=== PATIENT | female | born 1985 | race Caucasian/White ===

== ENCOUNTER → 2016-12-17 | Outpatient (CLI) | payer MEDICAID ==
[~2016-12-17] MED LIST: BUPIVACAINE HCL 0.25% 10 ML VIAL As Ordered ONE; BUPIVACAINE HCL 0.25% 30 ML VIAL As Ordered ONE; TRIAMCINOLONE ACETONIDE SUSP 40 MG/ML VIAL (J3301) As Ordered ONE; diazePAM 5 MG TAB As Ordered ONE; oxyCODONE 5MG TAB As Ordered ONE
--- NOTE | 2016-12-26 23:45 | ECWPNPC ---
PATIENT NAME: EDOUARD ALCALA : 1985 GENDER: FEMALE VISIT DATE: 12/17/2016 DISCHARGE DATE: 12/17/16 1635 VISIT LOCKED DATE TIME: PHYSICIAN: PATY HANCOCK RESOURCE: PATY HANCOCK REASON FOR APPOINTMENT 1. TPI HISTORY OF PRESENT ILLNESS HISTORY OF PRESENT ILLNESS: PAIN THE PATIENT DESCRIBES THE PAIN... FALL RISK SCREENING: SCREENING :NO FALLS IN THE PAST YEAR CURRENT MEDICATIONS TAKING TIZANIDINE HCL 4 MG TABLET 1 TABLET NEEDED ORALLY BEFORE BEDTIME, NOTES: 12/16/16@2100 TAKING HYDROCODONE-ACETAMINOPHEN 5-325 MG TABLET 1 TABLET NEEDED ORALLY FOR PAIN EVERY 10 HRS MDD2, NOTES: 12/16/16@2129 TAKING VITAMIN D 2000 UNIT CAPSULE 1 CAPSULE ORALLY ONCE A DAY, NOTES: 12/16/16@2129 TAKING PROTONIX 40 MG TABLET DELAYED RELEASE 1 TABLET ORALLY ONCE A DAY, NOTES: 12/17/16@0600 TAKING FLUOXETINE 20 MG CAPSULE 3 CAPSULE IN THE MORNING ORALLY ONCE A DAY, NOTES: 12/17/16@0600 TAKING TYLENOL 325 MG TABLET 2 TABLETS NEEDED ORALLY EVERY 6 HRS, NOTES: 3-4 DAYS AGO NOT-TAKING FLUCONAZOLE 150 MG TABLET 1 TABLET ORALLY DISCONTINUED VICODIN 5-300 MG TABLET 1 TABLET NEEDED ORALLY EVERY 6 HRS MDD 2 TABL, NOTES: 12/16/16@2129 DISCONTINUED FISH OIL 1000 MG CAPSULE 1 CAPSULE ORALLY ONCE A DAY MEDICATION LIST REVIEWED AND RECONCILED WITH THE PATIENT PAST MEDICAL HISTORY MILD DISPLASIA ULCER BUSITIS CARPAL TUNNEL ARTHRITIS PTSD MIGRAINES SCOLIOSIS FATTY LIVER DISEASE ALLERGIES CONTRAST: HIVES: SIDE EFFECTS YLENOL WITH CODEINE: RASH: SIDE EFFECTS PENICILLIN (FOR ALLERGIES USE ONLY) SOCIAL HISTORY GENERAL: TOBACCO USE ARE YOU A:NONSMOKER LEARNING BARRIERS / SPECIAL NEEDS ORIENTED TO PLAN OF CARE: PATIENT, PAIN MANAGEMENT PATIENT, ORIENTED TO PLAN OF CARE: PATIENT, PAIN MANAGEMENT PATIENT. NEW PATIENT PAIN DIARY TODAY'S VISITNOTES FROM 0-10, WHAT LEVEL IS YOUR PAIN TODAY?0 PAIN CLINIC PFS, CLERGY, PUBLIC HEALTH REFERRALS PFS REFERRAL NEEDED?NO CLERGY REFERRAL NEEDED?NO PUBLIC HEALTH REFERRAL NEEDED?NO WAS THE PROVIDER NOTIFIED OF ANY PERTINENT INFO?NO PFS REFERRAL NEEDED?NO CLERGY REFERRAL NEEDED?NO PUBLIC HEALTH REFERRAL NEEDED?NO WAS THE PROVIDER NOTIFIED OF ANY PERTINENT INFO?NO REVIEW OF SYSTEMS CONSTITUTIONAL: ANY CHANGE IN YOUR MEDICAL CONDITION? NO . CHILLS NO . FEVER NO . INFECTION: DO YOU HAVE NEW INFECTIONS? NO . DO YOU HAVE HISTORY OF MRSA? NO . MUSCULOSKELETAL: ANY NEW PATTERNS OF PAIN OR NUMBNESS? YES,FINGERS AND TOES . GASTROENTEROLOGY: ANY NEW CHANGE IN BOWEL CONTROL? NO . GENITOURINARY: ANY NEW CHANGE IN BLADDER CONTROL? NO . IS THERE A CHANCE YOU COULD BE ? NO . HEMATOLOGY/LYMPH: DO YOU TAKE ANY BLOOD THINNERS? (FOR EXAMPLE- COUMADIN, PLAVIX, AGGRENOX, PLATEL, PRADAXA, OR XARELTO) NO . WHEN WAS YOUR LAST DOSE? DATE: TIME: . NEUROLOGY: HAVE YOU FALLEN IN THE PAST 6 MONTHS? NO . ANY NEW EXTREMITY NUMBNESS OR WEAKNESS? NO . CARDIOLOGY: DO YOU HAVE A PACEMAKER OR DEFIBRILLATOR? NO . RESPIRATORY: HAVE YOU BEEN SICK IN THE PAST WEEK? NO . FEVER NO . FLU LIKE SYMPTOMS? NO . COUGH NO . INTEGUMENTARY: DO YOU HAVE ANY RASHES OR OPEN SORES? NO . ALLERGIC/IMMUNO: ARE YOU ALLERGIC TO SHELLFISH OR IV DYE? NO . ANY NEW ALLERGIES? NO . PSYCHIATRIC: DO YOU HAVE THOUGHTS OF HURTING YOURSELF OR SOMEONE ELSE? NO . ARE YOU ABUSED, NEGLECTED, OR IN AN UNSAFE ENVIRONMENT? NO . ENDOCRINOLOGY: ARE YOU DIABETIC? NO . OTHER: DO YOU NEED ANY PRESCRIPTIONS? NO . IF YES, PLEASE LIST: ____ . ANY NEW PROBLEMS WITH YOUR MEDICATIONS? NO . WHEN DID YOU LAST EAT? ____12/16/16 . WHEN DID YOU LAST DRINK? ____12/17/16@0600 . WHAT DID YOU LAST DRINK? ____COFFEE . NAME OF PERSON DRIVING YOU HOME? ____ALEKSANDRA SUAREZ . DO YOU HAVE ANY OTHER QUESTIONS OR CONCERNS NO . REVIEWED BY: PROVIDER: . VITAL SIGNS WT 240 LBS, HT 66 IN, BMI 38.73 INDEX, BP 128/88 MM HG, HR 89 /MIN, RR 16 /MIN, TEMP 97.8 F, OXYGEN SAT % 98, NA INITIALS TL 1339, REVIEWED BY: VD. ASSESSMENTS MYALGIA - M79.1 (PRIMARY) PROCEDURES PN TRIGGER POINT INJECTION WITH STEROIDS PRE PROCEDURE DIAGNOSIS 1. MYALGIA 2. PAIN AT BILATERAL LOW BACK AREA POST PROCEDURE DIAGNOSIS 1. MYALGIA 2. PAIN AT BILATERAL LOW BACK AREA PROCEDURE TRIGGER POINT INJECTION AT BILATERAL LOW BACK AREA SURGEON DR. PATY HANCOCK PAGE TECHNICIAN NONE ANESTHESIA LOCAL PRE PROCEDURE NOTE THE PATIENT HAS A HISTORY OF CHRONIC PAIN AT THE RIGHT AND LEFT LOW BACK AREA. I EVALUATE THE PATIENT AND REVIEWED THE CHART. THERE IS EVIDENCE OF BANDS OF TISSUE WITH RESTRICTION OF MOVEMENT AND PRESENCE OF TRIGGER POINT AT THE AFFECTED AREA. I WENT OVER THE RISKS, ALTERNATIVES, AND BENEFITS ASSOCIATED WITH THIS PROCEDURE. THE PATIENT WOULD LIKE TO PROCEED AND GIVE CONSENT TO PERFORMED THE PROCEDURE. THE PATIENT DENIES UNEXPLAINABLE WEIGHT LOSS, FEVER, CHILLS, OR NEW CHANGES IN URINARY OR BOWEL CONTROL DESCRIPTION OF PROCEDURE THE PATIENT WAS BROUGHT TO THE PROCEDURE ROOM AND PLACED IN THE SITTING POSITION. THE AREA WAS CLEANED WITH ALCOHOL. THE PROCEDURE WAS DONE USING ASEPTIC STERILE TECHNIQUE. I CHECKED LATERALITY AND THE LEVEL WHERE THE PROCEDURE WAS GOING TO BE PERFORMED WITH THE PATIENT AND THE SUPPORTING STAFF AT THE MOMENT OF THE TIME OUT IN THE PROCEDURE ROOM. USING A 25-GAUGE NEEDLE, TRIGGER POINTS WERE INJECTED AT THE RIGHT AND LEFT LOW BACK AREA WITH A TOTAL OF 40 ML OF BUPIVACAINE 0.25% AND KENALOG 40 MG. THERE WAS NO EVIDENCE OF BLOOD, PARESTHESIA OR CEREBROSPINAL FLUID DURING THE PROCEDURE. THE PATIENT WAS SENT TO THE RECOVERY ROOM. THE PATIENT WAS MOVING THE EXTREMITIES AND DOING WELL. THERE WAS NO COMPLICATION DURING THE PROCEDURE POST PROCEDURE NOTE THE PATIENT WILL BE SEEN IN A FOLLOW UP IN THE NEXT FEW WEEKS. INSTRUCTIONS WERE GIVEN, QUESTIONS WERE ANSWERED, AND THE PATIENT EXPRESSED UNDERSTANDING AND AGREES WITH THE PLAN. INSTRUCTIONS WERE GIVEN, QUESTIONS WERE ANSWERED, PATIENT REPORTS UNDERSTANDING AND AGREES WITH THE PLAN. I, ADEEL AGUILA, DOCUMENTED THE ABOVE INFORMATION ACTING A SCRIBE FOR DR. HANCOCK. I HAVE REVIEWED THE ABOVE DOCUMENT, WRITTEN BY ADEEL AGUILA SCRIBGregory AND I VERIFY THAT IT IS ACCURATE. PROCEDURE CODES 69426 INJ TRIGGER POINT / [facility] [place] FOLLOW UP 3 WEEKS ELECTRONICALLY SIGNED BY PATY HANCOCK MD ON 12/26/2016 AT 07:48 PM EST DISCLAIMER : THIS IS A VISIT SUMMARY EXTRACTED FROM THE [employer] CHART. IT IS NOT A COPY OF THE [employer] PROGRESS NOTE. [facility]
== END ==
LOC: M PAIN 14:30
PROVIDERS: ATTEND Anesthesiology
DX: G89.29 Other chronic pain (principal); M79.1 Myalgia; M54.5 Low back pain; M19.90 Unspecified osteoarthritis, unspecified site; G43.909 Migraine, unspecified, not intractable, without status migrainosus; M41.9 Scoliosis, unspecified; K76.0 Fatty (change of) liver, not elsewhere classified; F43.10 Post-traumatic stress disorder, unspecified; Z91.041 Radiographic dye allergy status; Z88.5 Allergy status to narcotic agent; Z88.0 Allergy status to penicillin; Z79.891 Long term (current) use of opiate analgesic; Z79.899 Other long term (current) drug therapy
CPT/HCPCS: 20552; J3301

== ENCOUNTER → 2017-01-18 | Outpatient (CLI) | payer MEDICAID ==
--- NOTE | 2017-01-19 00:29 | ECWPNPC ---
PATIENT NAME: EDOUARD ALCALA : 1985 GENDER: FEMALE VISIT DATE: 01/18/2017 DISCHARGE DATE: 01/18/17 1629 VISIT LOCKED DATE TIME: PHYSICIAN: KATH BEDOLLA RESOURCE: KATH BEDOLLA REASON FOR APPOINTMENT 1. 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 PAIN THE PATIENT DESCRIBES THE PAIN... FALL RISK SCREENING: SCREENING :NO FALLS IN THE PAST YEAR CURRENT MEDICATIONS TAKING TIZANIDINE HCL 4 MG TABLET 1 TABLET NEEDED ORALLY BEFORE BEDTIME TAKING PROTONIX 40 MG TABLET DELAYED RELEASE 1 TABLET ORALLY ONCE A DAY, NOTES: 12/17/16@0600 TAKING FLUOXETINE 20 MG CAPSULE 3 CAPSULE IN THE MORNING ORALLY ONCE A DAY, NOTES: 12/17/16@0600 TAKING TYLENOL 325 MG TABLET 2 TABLETS NEEDED ORALLY EVERY 6 HRS, NOTES: 3-4 DAYS AGO TAKING HYDROCODONE-ACETAMINOPHEN 5-325 MG TABLET 1 TABLET NEEDED ORALLY FOR PAIN EVERY 10 HRS MDD2 NOT-TAKING VITAMIN D 2000 UNIT CAPSULE 1 CAPSULE ORALLY ONCE A DAY, NOTES: 12/16/16@2130 NOT-TAKING FLUCONAZOLE 150 MG TABLET 1 TABLET ORALLY MEDICATION LIST REVIEWED AND RECONCILED WITH THE PATIENT PAST MEDICAL HISTORY MILD DISPLASIA ULCER BUSITIS CARPAL TUNNEL ARTHRITIS PTSD MIGRAINES SCOLIOSIS FATTY LIVER DISEASE ALLERGIES CONTRAST: HIVES: SIDE EFFECTS YLENOL WITH CODEINE: RASH: SIDE EFFECTS PENICILLIN (FOR ALLERGIES USE ONLY) SOCIAL HISTORY GENERAL: TOBACCO USE ARE YOU A:NONSMOKER LEARNING BARRIERS / SPECIAL NEEDS ORIENTED TO PLAN OF CARE: PATIENT, PAIN MANAGEMENT PATIENT, ORIENTED TO PLAN OF CARE: PATIENT, PAIN MANAGEMENT PATIENT. NEW PATIENT PAIN DIARY TODAY'S VISITNOTES FROM 0-10, WHAT LEVEL IS YOUR PAIN TODAY?0 PAIN CLINIC PFS, CLERGY, PUBLIC HEALTH REFERRALS PFS REFERRAL NEEDED?NO CLERGY REFERRAL NEEDED?NO PUBLIC HEALTH REFERRAL NEEDED?NO WAS THE PROVIDER NOTIFIED OF ANY PERTINENT INFO?NO PFS REFERRAL NEEDED?NO CLERGY REFERRAL NEEDED?NO PUBLIC HEALTH REFERRAL NEEDED?NO WAS THE PROVIDER NOTIFIED OF ANY PERTINENT INFO?NO REVIEW OF SYSTEMS CONSTITUTIONAL: ANY CHANGE IN YOUR MEDICAL CONDITION? NO . RECENT ILLNESS DENIES . CHILLS NO . FEVER NO . WEIGHT LOSS DENIES . INFECTION: DO YOU HAVE NEW INFECTIONS? NO . DO YOU HAVE HISTORY OF MRSA? NO . MUSCULOSKELETAL: ANY NEW PATTERNS OF PAIN OR NUMBNESS? YES INCREASED ALL THE TIME . GASTROENTEROLOGY: ANY NEW CHANGE IN BOWEL CONTROL? NO . GENITOURINARY: ANY NEW CHANGE IN BLADDER CONTROL? NO . IS THERE A CHANCE YOU COULD BE ? NO . HEMATOLOGY/LYMPH: DO YOU TAKE ANY BLOOD THINNERS? (FOR EXAMPLE- COUMADIN, PLAVIX, AGGRENOX, PLATEL, PRADAXA, OR XARELTO) NO . WHEN WAS YOUR LAST DOSE? DATE: TIME: . NEUROLOGY: HAVE YOU FALLEN IN THE PAST 6 MONTHS? YES &QUOT;KNEES GIVE OUT ON MY&QUOT; PT DOES NOT SPECIFY ONE OVER THE OTHER . ANY NEW EXTREMITY NUMBNESS OR WEAKNESS? NO . CARDIOLOGY: DO YOU HAVE A PACEMAKER OR DEFIBRILLATOR? NO . CHEST PAIN DENIES . SHORTNESS OF BREATH DENIES . RESPIRATORY: HAVE YOU BEEN SICK IN THE PAST WEEK? NO . FEVER NO . FLU LIKE SYMPTOMS? NO . COUGH NO, DENIES . SHORTNESS OF BREATH DENIES . INTEGUMENTARY: DO YOU HAVE ANY RASHES OR OPEN SORES? NO . ALLERGIC/IMMUNO: ARE YOU ALLERGIC TO SHELLFISH OR IV DYE? NO . ANY NEW ALLERGIES? NO . PSYCHIATRIC: DO YOU HAVE THOUGHTS OF HURTING YOURSELF OR SOMEONE ELSE? NO . ARE YOU ABUSED, NEGLECTED, OR IN AN UNSAFE ENVIRONMENT? NO . ENDOCRINOLOGY: ARE YOU DIABETIC? NO . OTHER: DO YOU NEED ANY PRESCRIPTIONS? NO . IF YES, PLEASE LIST: ____ . ANY NEW PROBLEMS WITH YOUR MEDICATIONS? NO . WHEN DID YOU LAST EAT? ____ . WHEN DID YOU LAST DRINK? ____ . WHAT DID YOU LAST DRINK? ____ . NAME OF PERSON DRIVING YOU HOME? ____ . DO YOU HAVE ANY OTHER QUESTIONS OR CONCERNS NO . REVIEWED BY: PROVIDER: KATH LEE . VITAL SIGNS WT 239.2 LBS, HT 66 IN, BMI 38.60 INDEX, BP 129/73 MM HG, HR 93 /MIN, RR 16 /MIN, TEMP 97.7 F, OXYGEN SAT % 98%, NA INITIALS SC 15:31, REVIEWED BY: KG. EXAMINATION GENERAL EXAMINATION: LUNGS:LUNG SOUNDS ARE CLEAR. HEART:HEART RATE REGULAR. MUSCULOSKELETAL:*, MUSCLE STRENGTH TESTING 5/5 BILATERAL LOWER EXT.SPECIFIC POINT TENDERNESS OVER BILAT.SIJ.POSITIVE ALEXY TEST BILAT LOWER EXT.. DIAGNOSTIC:MRI L/S SPINE-REVIEWED. ASSESSMENTS MYALGIA - M79.1 (PRIMARY) LUMBAGO WITH SCIATICA, LEFT SIDE - M54.42 SACROILIAC JOINT PAIN - M53.3 TREATMENT MYALGIA REFILL TIZANIDINE HCL TABLET, 4 MG, 1, ORALLY, BID PRN MDD2, 30 DAY(S), 30, REFILLS 1 STOP HYDROCODONE-ACETAMINOPHEN TABLET, 5-325 MG, 1 TABLET NEEDED, ORALLY FOR PAIN, EVERY 10 HRS MDD2 START TRAMADOL HCL TABLET, 50 MG, 1-2 TAB, ORALLY, EVERY 6 HRS PRN MDD4, 30 DAY(S), 60, REFILLS 1 INJECTION ANESTHETIC SACROILIAC JOINTBARBER,KATH 01/18/2017 4:23:03 PM > BILAT. SIJ LUMBAGO WITH SCIATICA, LEFT SIDE INJECTION ANESTHETIC SACROILIAC JOINTBARBER,KATH 01/18/2017 4:23:03 PM > BILAT. SIJ SACROILIAC JOINT PAIN INJECTION ANESTHETIC SACROILIAC JOINTBARBER,KATH 01/18/2017 4:23:03 PM > BILAT. SIJ PROCEDURE CODES FA211 ESTABILISHED PATIENT [facility] FACILITY CHARGE DISPOSITION & COMMUNICATION FOLLOW UP 2WK POST (REASON: BILAT. SIJ) ELECTRONICALLY SIGNED BY ROSA BROWN ON 01/18/2017 AT 04:49 PM EST DISCLAIMER : THIS IS A VISIT SUMMARY EXTRACTED FROM THE [employer] CHART. IT IS NOT A COPY OF THE [employer] PROGRESS NOTE. MTDD
== END ==
LOC: M PAIN 15:20
PROVIDERS: ATTEND Nurse Practitioner Family
DX: Z09 Encounter for follow-up examination after completed treatment for conditions other than malignant neoplasm (principal); G89.29 Other chronic pain; M79.1 Myalgia; M54.42 Lumbago with sciatica, left side; M53.3 Sacrococcygeal disorders, not elsewhere classified; M19.90 Unspecified osteoarthritis, unspecified site; G43.909 Migraine, unspecified, not intractable, without status migrainosus; M41.9 Scoliosis, unspecified; K76.0 Fatty (change of) liver, not elsewhere classified; Z91.041 Radiographic dye allergy status; Z88.5 Allergy status to narcotic agent; Z88.0 Allergy status to penicillin; Z79.891 Long term (current) use of opiate analgesic; Z79.899 Other long term (current) drug therapy

== ENCOUNTER → 2017-02-11 | Outpatient (CLI) | payer OTHER, MEDICAID ==
[~2017-02-11] MED LIST changes: -BUPIVACAINE HCL 0.25% 10 ML VIAL As Ordered ONE; +ISOVUE-M 300 61% 15ML VIAL (Q9967) As Ordered ONE; +LIDOCAINE 1% SDV INJ 30 ML VIAL As Ordered ONE
--- NOTE | 2017-02-14 11:22 | REP ---
FLUOROSCOPIC GUIDANCE FOR BILATERAL SI JOINT INJECTION: 02/11/2017. Clinical history: Bilateral SI joint pain. Two images for each side for bilateral SI joint injection performed by Dr. Crowley of the pain clinic are reviewed. Initial image shows a needle at the lower aspect and the middle third of the left SI joint and in the lower one-third of the right SI joint for both of those images. Fluoroscopy time: 13 seconds. Signed by Liu Steiner MD 02/14/2017 05:39 P
--- NOTE | 2017-02-15 01:58 | ECWPNPC ---
PATIENT NAME: EDOUARD ALCALA : 1985 GENDER: FEMALE VISIT DATE: 02/11/2017 DISCHARGE DATE: 02/11/17 1325 VISIT LOCKED DATE TIME: PHYSICIAN: PATY HANCOCK RESOURCE: PATY HANCOCK REASON FOR APPOINTMENT 1. BILATERAL SIJ HISTORY OF PRESENT ILLNESS HISTORY OF PRESENT ILLNESS: PAIN THE PATIENT DESCRIBES THE PAIN... FALL RISK SCREENING: SCREENING :NO FALLS IN THE PAST YEAR CURRENT MEDICATIONS TAKING PROTONIX 40 MG TABLET DELAYED RELEASE 1 TABLET ORALLY ONCE A DAY, NOTES: 02/10/17729 TAKING FLUOXETINE 20 MG CAPSULE 3 CAPSULE IN THE MORNING ORALLY ONCE A DAY, NOTES: 02/10/17729 TAKING TYLENOL 325 MG TABLET 2 TABLETS NEEDED ORALLY EVERY 6 HRS, NOTES: NONE LATELY TAKING TIZANIDINE HCL 4 MG TABLET 1 ORALLY BID PRN MDD2, NOTES: 02/10/172129 TAKING TRAMADOL HCL 50 MG TABLET 1-2 TAB ORALLY EVERY 6 HRS PRN MDD4, NOTES: 02/10/172129 NOT-TAKING VITAMIN D 2000 UNIT CAPSULE 1 CAPSULE ORALLY ONCE A DAY, NOTES: 12/16/16@2130 NOT-TAKING FLUCONAZOLE 150 MG TABLET 1 TABLET ORALLY PAST MEDICAL HISTORY MILD DISPLASIA ULCER BUSITIS CARPAL TUNNEL ARTHRITIS PTSD MIGRAINES SCOLIOSIS FATTY LIVER DISEASE ALLERGIES CONTRAST: HIVES: SIDE EFFECTS YLENOL WITH CODEINE: RASH: SIDE EFFECTS PENICILLIN (FOR ALLERGIES USE ONLY) REVIEW OF SYSTEMS CONSTITUTIONAL: ANY CHANGE IN YOUR MEDICAL CONDITION? NO . CHILLS NO . FEVER NO . INFECTION: DO YOU HAVE NEW INFECTIONS? NO . DO YOU HAVE HISTORY OF MRSA? NO . MUSCULOSKELETAL: ANY NEW PATTERNS OF PAIN OR NUMBNESS? NO . GASTROENTEROLOGY: ANY NEW CHANGE IN BOWEL CONTROL? NO . GENITOURINARY: ANY NEW CHANGE IN BLADDER CONTROL? NO . IS THERE A CHANCE YOU COULD BE ? NO . HEMATOLOGY/LYMPH: DO YOU TAKE ANY BLOOD THINNERS? (FOR EXAMPLE- COUMADIN, PLAVIX, AGGRENOX, PLATEL, PRADAXA, OR XARELTO) NO . WHEN WAS YOUR LAST DOSE? DATE: TIME: . NEUROLOGY: HAVE YOU FALLEN IN THE PAST 6 MONTHS? YES NO ED EVAL . ANY NEW EXTREMITY NUMBNESS OR WEAKNESS? NO . CARDIOLOGY: DO YOU HAVE A PACEMAKER OR DEFIBRILLATOR? NO . RESPIRATORY: HAVE YOU BEEN SICK IN THE PAST WEEK? NO . FEVER NO . FLU LIKE SYMPTOMS? NO . COUGH NO . INTEGUMENTARY: DO YOU HAVE ANY RASHES OR OPEN SORES? NO . ALLERGIC/IMMUNO: ARE YOU ALLERGIC TO SHELLFISH OR IV DYE? YES IV DYE-HIVES . ANY NEW ALLERGIES? NO . PSYCHIATRIC: DO YOU HAVE THOUGHTS OF HURTING YOURSELF OR SOMEONE ELSE? NO . ARE YOU ABUSED, NEGLECTED, OR IN AN UNSAFE ENVIRONMENT? NO . ENDOCRINOLOGY: ARE YOU DIABETIC? NO . OTHER: DO YOU NEED ANY PRESCRIPTIONS? NO . IF YES, PLEASE LIST: ____ . ANY NEW PROBLEMS WITH YOUR MEDICATIONS? NO . WHEN DID YOU LAST EAT? ____02/10/17 2200 . WHEN DID YOU LAST DRINK? ____02/11/17 0630 . WHAT DID YOU LAST DRINK? ____COFFEE . NAME OF PERSON DRIVING YOU HOME? ____TOBIE . DO YOU HAVE ANY OTHER QUESTIONS OR CONCERNS NO . REVIEWED BY: PROVIDER: . VITAL SIGNS WT 240.0 LBS, HT 66 IN, BMI 38.73 INDEX, BP 128/64 MM HG, HR 72 /MIN, RR 16 /MIN, TEMP 98.1 F, OXYGEN SAT % 97, NA INITIALS TL 1143, REVIEWED BY: MLF. ASSESSMENTS SACROILIITIS, NOT ELSEWHERE CLASSIFIED - M46.1 (PRIMARY) PROCEDURES PN SI PRE PROCEDURE DIAGNOSIS SACROILIITIS, SACROILIAC JOINT DYSFUNCTION POST PROCEDURE DIAGNOSIS SACROILIITIS, SACROILIAC JOINT DYSFUNCTION PROCEDURE BILATERAL SACROILIAC JOINT BLOCK SURGEON DR. PATY HANCOCK UX VISUAL DESIGNER NONE ANESTHESIA LOCAL PRE PROCEDURE NOTE PATIENT WITH HISTORY OF CHRONIC LOW BACK PAIN. I EVALUATED THE PATIENT AND REVIEWED THE CHART. I WENT OVER THE RISKS, ALTERNATIVES, AND BENEFITS ASSOCIATED WITH THIS PROCEDURE. THE PATIENT WOULD LIKE TO PROCEED AND GAVE CONSENT TO PERFORM THE PROCEDURE. THE PATIENT DENIES UNEXPLAINABLE WEIGHT LOSS, FEVER, CHILLS, OR NEW CHANGES IN URINARY OR BOWEL CONTROL DESCRIPTION OF PROCEDURE THE PATIENT WAS BROUGHT TO THE PROCEDURE ROOM AND PLACED IN THE PRONE POSITION. THE LUMBOSACRAL AREA WAS CLEANED WITH CHLORAPREP SOLUTION AND DRAPED ASEPTICALLY. THE PROCEDURE WAS DONE UNDER STERILE CONDITIONS. I CHECKED LATERALITY AND THE LEVEL WHERE THE PROCEDURE WAS GOING TO BE PERFORMED WITH THE PATIENT AND THE SUPPORTING STAFF AT THE MOMENT OF THE TIME OUT IN THE PROCEDURE ROOM. UNDER FLUOROSCOPIC GUIDANCE, TARGET POINT WAS SELECTED AT THE LOWER BORDER OF THE RIGHT AND LEFT SACROILIAC JOINT. TARGET POINT WAS SELECTED AFTER MEDIAL ROTATION AND TILT OF THE MAGNIFIER OF THE C-ARM. LIDOCAINE WAS USED TO NUMB THE SKIN AND SUBCUTANEOUS TISSUE BELOW IT. A SPINAL NEEDLE, 22-GAUGE, WAS ADVANCED UNDER FLUOROSCOPIC GUIDANCE AND FOLLOWING PATIENT FEEDBACK UNTIL THE TARGET AREA WAS TOUCHED. THE POSITION OF THE NEEDLE WAS VERIFIED WITH AP AND LATERAL VIEWS. AFTER PROPER POSITION OF THE NEEDLE WAS ACHIEVED. A SOLUTION OF 20 MG OF KENALOG WAS INJECTED IN RIGHT JOINT WITH 3 ML OF BUPIVACAINE 0.125%. THERE WAS NO EVIDENCE OF BLOOD, PARESTHESIA OR CEREBROSPINAL FLUID DURING THE PROCEDURE. THE PATIENT WAS SENT TO THE RECOVERY ROOM. THE PATIENT WAS MOVING THE EXTREMITIES AND DOING WELL. THERE WAS NO COMPLICATION DURING THE PROCEDURE. FLUOROSCOPY TIME WAS 13 SECONDS POST PROCEDURE NOTE THE PATIENT WILL BE SEEN IN A FOLLOW UP IN THE NEXT FEW WEEKS. INSTRUCTIONS WERE GIVEN, QUESTIONS WERE ANSWERED, AND THE PATIENT EXPRESSED UNDERSTANDING AND AGREED WITH THE PLAN. I, NORMA SAVAGE, DOCUMENTED THE ABOVE INFORMATION ACTING A SCRIBE FOR DR. HANCOCK. I HAVE REVIEWED THE ABOVE DOCUMENT, WRITTEN BY NORMA SAVAGE SCRIBGregory AND I VERIFY THAT IT IS ACCURATE DIAGNOSTIC IMAGING [facility] FLUORO GUIDANCE (PAIN)[id number] PROCEDURE CODES 11564 INJECT SACROILIAC JOINT 6045F RADXPS IN END [id number] PXD DISPOSITION & COMMUNICATION FOLLOW UP 3 WEEKS ELECTRONICALLY SIGNED BY PATY HANCOCK MD ON 02/14/2017 AT 06:28 PM EDT DISCLAIMER : THIS IS A VISIT SUMMARY EXTRACTED FROM THE [employer] CHART. IT IS NOT A COPY OF THE [employer] PROGRESS NOTE. MTDD
== END ==
LOC: M PAIN 11:40
PROVIDERS: ATTEND Anesthesiology
DX: G89.29 Other chronic pain (principal); M46.1 Sacroiliitis, not elsewhere classified; M54.5 Low back pain; Z79.899 Other long term (current) drug therapy; Z79.891 Long term (current) use of opiate analgesic; Z88.0 Allergy status to penicillin; Z88.5 Allergy status to narcotic agent; Z91.041 Radiographic dye allergy status
CPT/HCPCS: G0260; J3301; Q9967

== ENCOUNTER → 2017-03-01 | Outpatient (REF) | payer MEDICAID | LOC: M LAB REF 14:47 | PROVIDERS: ATTEND Physician Assistant | DX: R50.9 Fever, unspecified (principal) ==

== ENCOUNTER → 2017-04-15 | Outpatient (CLI) | payer OTHER, MEDICAID ==
--- NOTE | 2017-04-27 02:22 | ECWPNPC ---
PATIENT NAME: EDOUARD ALCALA : 1985 GENDER: FEMALE VISIT DATE: 04/15/2017 DISCHARGE DATE: 04/15/17 1510 VISIT LOCKED DATE TIME: PHYSICIAN: PATY HANCOCK RESOURCE: PATY HANCOCK REASON FOR APPOINTMENT 1. BACK HISTORY OF PRESENT ILLNESS HISTORY OF PRESENT ILLNESS: PAIN THE PATIENT DESCRIBES THE PAIN... 31 YEAR OLD FEMALE PATIENT HISTORY OF CHRONIC BACK PAIN. PATIENT DESCRIBES THE PAIN ACHING, SHARP, STABBING, TENDER, THROBBING, SORE, SHOOTING, AND HAVING IT ALL THE TIME WITH A PAIN SCORE OF 8/10 ON TODAY'S VISIT. PATIENT RECEIVED A BILATERAL SIJ IN 02/11/2017 AND STATES THAT THE INJECTION PROVIDED 50 PERCENT PAIN RELIEF FOR 4 WEEKS INCREASING HER MOBILITY AND FUNCTIONALITY, BUT NOW THE PAIN HAS RETURNED. PATIENT STATES THAT HER PAIN NOW RADIATES FROM HER LOW BACK UP TO HER NECK AREA. PATIENT REPORTS THAT SHE CAN NOT TAKE IBUPROFEN DUE TO STOMACH ULCERS. PATIENT DENIES UNEXPLAINABLE WEIGHT LOSS, FEVER, CHILLS, NEW CHANGES ON HER URINARY OR BOWEL CONTROL. FALL RISK SCREENING: SCREENING :NO FALLS IN THE PAST YEAR CURRENT MEDICATIONS TAKING PROTONIX 40 MG TABLET DELAYED RELEASE 1 TABLET ORALLY ONCE A DAY TAKING FLUOXETINE 20 MG CAPSULE 3 CAPSULE IN THE MORNING ORALLY ONCE A DAY TAKING TYLENOL 325 MG TABLET 2 TABLETS NEEDED ORALLY EVERY 6 HRS TAKING TIZANIDINE HCL 4 MG TABLET 1 ORALLY BID PRN MDD2 TAKING TRAMADOL HCL 50 MG TABLET 1-2 TAB ORALLY EVERY 6 HRS PRN MDD4 NOT-TAKING VITAMIN D 2000 UNIT CAPSULE 1 CAPSULE ORALLY ONCE A DAY, NOTES: 12/16/16@2130 NOT-TAKING FLUCONAZOLE 150 MG TABLET 1 TABLET ORALLY MEDICATION LIST REVIEWED AND RECONCILED WITH THE PATIENT PAST MEDICAL HISTORY MILD DISPLASIA ULCER BUSITIS CARPAL TUNNEL ARTHRITIS PTSD MIGRAINES SCOLIOSIS FATTY LIVER DISEASE ALLERGIES CONTRAST: HIVES: SIDE EFFECTS YLENOL WITH CODEINE: RASH: SIDE EFFECTS PENICILLIN (FOR ALLERGIES USE ONLY) SURGICAL HISTORY NO SURGICAL HISTORY DOCUMENTED. FAMILY HISTORY NO FAMILY HISTORY DOCUMENTED. SOCIAL HISTORY GENERAL: TOBACCO USE ARE YOU A:NONSMOKER LEARNING BARRIERS / SPECIAL NEEDS ORIENTED TO PLAN OF CARE: PATIENT, PAIN MANAGEMENT PATIENT, ORIENTED TO PLAN OF CARE: PATIENT, PAIN MANAGEMENT PATIENT. NEW PATIENT PAIN DIARY TODAY'S VISITNOTES FROM 0-10, WHAT LEVEL IS YOUR PAIN TODAY?0 PAIN CLINIC PFS, CLERGY, PUBLIC HEALTH REFERRALS PFS REFERRAL NEEDED?NO CLERGY REFERRAL NEEDED?NO PUBLIC HEALTH REFERRAL NEEDED?NO WAS THE PROVIDER NOTIFIED OF ANY PERTINENT INFO?NO PFS REFERRAL NEEDED?NO CLERGY REFERRAL NEEDED?NO PUBLIC HEALTH REFERRAL NEEDED?NO WAS THE PROVIDER NOTIFIED OF ANY PERTINENT INFO?NO HOSPITALIZATION/MAJOR DIAGNOSTIC PROCEDURE NO HOSPITALIZATION HISTORY. REVIEW OF SYSTEMS CONSTITUTIONAL: ANY CHANGE IN YOUR MEDICAL CONDITION? NO . CHILLS NO . FEVER NO . INFECTION: DO YOU HAVE NEW INFECTIONS? NO . DO YOU HAVE HISTORY OF MRSA? NO . MUSCULOSKELETAL: ANY NEW PATTERNS OF PAIN OR NUMBNESS? NO . GASTROENTEROLOGY: ANY NEW CHANGE IN BOWEL CONTROL? NO . GENITOURINARY: ANY NEW CHANGE IN BLADDER CONTROL? NO . IS THERE A CHANCE YOU COULD BE ? NO . HEMATOLOGY/LYMPH: DO YOU TAKE ANY BLOOD THINNERS? (FOR EXAMPLE- COUMADIN, PLAVIX, AGGRENOX, PLATEL, PRADAXA, OR XARELTO) NO . WHEN WAS YOUR LAST DOSE? DATE: TIME: . NEUROLOGY: HAVE YOU FALLEN IN THE PAST 6 MONTHS? YES . ANY NEW EXTREMITY NUMBNESS OR WEAKNESS? NO . CARDIOLOGY: DO YOU HAVE A PACEMAKER OR DEFIBRILLATOR? NO . RESPIRATORY: HAVE YOU BEEN SICK IN THE PAST WEEK? NO . FEVER NO . FLU LIKE SYMPTOMS? NO . COUGH NO . INTEGUMENTARY: DO YOU HAVE ANY RASHES OR OPEN SORES? NO . ALLERGIC/IMMUNO: ARE YOU ALLERGIC TO SHELLFISH OR IV DYE? YES . ANY NEW ALLERGIES? NO . PSYCHIATRIC: DO YOU HAVE THOUGHTS OF HURTING YOURSELF OR SOMEONE ELSE? NO . ARE YOU ABUSED, NEGLECTED, OR IN AN UNSAFE ENVIRONMENT? NO . ENDOCRINOLOGY: ARE YOU DIABETIC? NO . OTHER: DO YOU NEED ANY PRESCRIPTIONS? YES . IF YES, PLEASE LIST: NEEDS PAIN MEDS . ANY NEW PROBLEMS WITH YOUR MEDICATIONS? NO . WHEN DID YOU LAST EAT? ____ . WHEN DID YOU LAST DRINK? ____ . WHAT DID YOU LAST DRINK? ____ . NAME OF PERSON DRIVING YOU HOME? ____ . DO YOU HAVE ANY OTHER QUESTIONS OR CONCERNS WANTS TO KNOW WHY IS THE PAIN WORSE . REVIEWED BY: PROVIDER: PATY HANCOCK MD . VITAL SIGNS WT 242.4 LBS, HT 66 IN, BMI 39.12 INDEX, BP 133/77 MM HG, HR 95 /MIN, RR 16 /MIN, TEMP 98.3 F, OXYGEN SAT % 98%, NA INITIALS SC 14:50. EXAMINATION : PATIENT IS ALERT O X 3 AND COOPERATIVE. THERE IS TENDERNESS IN THE SACROILIAC AREA. ASSESSMENTS SACROILIITIS, NOT ELSEWHERE CLASSIFIED - M46.1 (PRIMARY) TREATMENT SACROILIITIS, NOT ELSEWHERE CLASSIFIED NOTES: WE DISCUSSED SEVERAL ISSUES WITH MS. ALCALA PAIN MANAGEMENT CASE. AT THIS TIME THE PATIENT WILL RECEIVED A REFILL OF TIZANIDINE AND TRAMADOL. WITH THE PREVIOUS SIJ WORKING WELL FOR THE PATIENT, SHE IS A CANDIDATE FOR ANOTHER BILATERAL SACROILIAC JOINT INJECTION. WE DISCUSSED THE RISK, BENEFITS, AND ALTERNATIVES AND THE PATIENT WOULD LIKE TO PROCEED. PATIENT WILL BE BOOKED PENDING APPROVAL. I WILL ORDER UTOX FOR THE PATIENT TODAY. PATIENT WILL FOLLOW UP WITH ME IN 7 WEEKS. INSTRUCTIONS WERE GIVEN, QUESTIONS WERE ANSWERED, PATIENT REPORTS UNDERSTANDING AND AGREES WITH THE PLAN. I, ADEEL AGUILA, DOCUMENTED THE ABOVE INFORMATION ACTING A SCRIBE FOR DR. HANCOCK. I HAVE REVIEWED THE ABOVE DOCUMENT, WRITTEN BY ADEEL AGUILA SCRIBE AND I VERIFY THAT IT IS ACCURATE. OTHERS REFILL TIZANIDINE HCL TABLET, 4 MG, 1, ORALLY, BEFORE BEDTIME MAY REPEAT IN 4HRS MDD2, 30 DAY(S), 60, REFILLS 2 REFILL TRAMADOL HCL TABLET, 50 MG, 1 TAB, ORALLY, EVERY 6 HRS PRN MDD4, 30 DAY(S), 75, REFILLS 0 PROCEDURE CODES FA211 ESTABILISHED PATIENT [facility] FACILITY CHARGE G8730 PAIN ASSESS POS TOOL F/U PLAN DOC G8427 DOC MEDS VERIFIED W/PT OR RE DISPOSITION & COMMUNICATION FOLLOW UP 7 WEEKS ELECTRONICALLY SIGNED BY PATY HANCOCK MD ON 04/26/2017 AT 07:46 PM EDT DISCLAIMER : THIS IS A VISIT SUMMARY EXTRACTED FROM THE [employer] CHART. IT IS NOT A COPY OF THE [employer] PROGRESS NOTE. MTDD
== END ==
LOC: M PAIN 13:40
PROVIDERS: ATTEND Anesthesiology
DX: M46.1 Sacroiliitis, not elsewhere classified (principal); G89.29 Other chronic pain; M19.90 Unspecified osteoarthritis, unspecified site; F43.10 Post-traumatic stress disorder, unspecified; G43.909 Migraine, unspecified, not intractable, without status migrainosus; M41.9 Scoliosis, unspecified; K76.0 Fatty (change of) liver, not elsewhere classified; Z91.041 Radiographic dye allergy status; Z88.5 Allergy status to narcotic agent; Z88.0 Allergy status to penicillin; Z79.891 Long term (current) use of opiate analgesic; Z79.899 Other long term (current) drug therapy

== ENCOUNTER → 2017-04-22 | Outpatient (CLI) | payer OTHER, MEDICAID ==
[~2017-04-22] MED LIST changes: -ISOVUE-M 300 61% 15ML VIAL (Q9967) As Ordered ONE
--- NOTE | 2017-04-22 14:48 | REP ---
C-ARM VIEWS SACROILIAC JOINTS: CLINICAL HISTORY: Pain. Four C-arm views of the sacroiliac joints are performed during injections by Dr. Crowley. Karval are seen in the region of the sacroiliac joints bilaterally. 27 seconds of fluoroscopy time utilized for the procedure. Signed by Zurdo Zuniga MD 04/22/2017 04:00 P
--- NOTE | 2017-04-27 00:15 | ECWPNPC ---
PATIENT NAME: EDOUARD ALCALA : 1985 GENDER: FEMALE VISIT DATE: 04/22/2017 DISCHARGE DATE: 04/22/17 1318 VISIT LOCKED DATE TIME: PHYSICIAN: PATY HANCOCK RESOURCE: PATY HNACOCK REASON FOR APPOINTMENT 1. BILATERAL SIJ HISTORY OF PRESENT ILLNESS HISTORY OF PRESENT ILLNESS: PAIN THE PATIENT DESCRIBES THE PAIN... FALL RISK SCREENING: SCREENING :NO FALLS IN THE PAST YEAR CURRENT MEDICATIONS TAKING PROTONIX 40 MG TABLET DELAYED RELEASE 1 TABLET ORALLY ONCE A DAY, NOTES: 04-21-172199 TAKING FLUOXETINE 20 MG CAPSULE 3 CAPSULE IN THE MORNING ORALLY ONCE A DAY, NOTES: 04-21-20172199 TAKING TYLENOL 325 MG TABLET 2 TABLETS NEEDED ORALLY EVERY 6 HRS, NOTES: 04-21-172199 TAKING TIZANIDINE HCL 4 MG TABLET 1 ORALLY BEFORE BEDTIME MAY REPEAT IN 4HRS MDD2, NOTES: 04-21-172199 TAKING TRAMADOL HCL 50 MG TABLET 1 TAB ORALLY EVERY 6 HRS PRN MDD4, NOTES: 04-21-172199 NOT-TAKING VITAMIN D 2000 UNIT CAPSULE 1 CAPSULE ORALLY ONCE A DAY, NOTES: 12/16/16@2130 NOT-TAKING FLUCONAZOLE 150 MG TABLET 1 TABLET ORALLY MEDICATION LIST REVIEWED AND RECONCILED WITH THE PATIENT PAST MEDICAL HISTORY MILD DISPLASIA ULCER BUSITIS CARPAL TUNNEL ARTHRITIS PTSD MIGRAINES SCOLIOSIS FATTY LIVER DISEASE ALLERGIES CONTRAST: HIVES: SIDE EFFECTS YLENOL WITH CODEINE: RASH: SIDE EFFECTS PENICILLIN (FOR ALLERGIES USE ONLY) REVIEW OF SYSTEMS CONSTITUTIONAL: ANY CHANGE IN YOUR MEDICAL CONDITION? NO . CHILLS NO . FEVER NO . INFECTION: DO YOU HAVE NEW INFECTIONS? NO . DO YOU HAVE HISTORY OF MRSA? NO . MUSCULOSKELETAL: ANY NEW PATTERNS OF PAIN OR NUMBNESS? NO . GASTROENTEROLOGY: ANY NEW CHANGE IN BOWEL CONTROL? NO . GENITOURINARY: ANY NEW CHANGE IN BLADDER CONTROL? NO . IS THERE A CHANCE YOU COULD BE ? NO . HEMATOLOGY/LYMPH: DO YOU TAKE ANY BLOOD THINNERS? (FOR EXAMPLE- COUMADIN, PLAVIX, AGGRENOX, PLATEL, PRADAXA, OR XARELTO) NO . WHEN WAS YOUR LAST DOSE? DATE: TIME: . NEUROLOGY: HAVE YOU FALLEN IN THE PAST 6 MONTHS? YES . ANY NEW EXTREMITY NUMBNESS OR WEAKNESS? NO . CARDIOLOGY: DO YOU HAVE A PACEMAKER OR DEFIBRILLATOR? NO . RESPIRATORY: HAVE YOU BEEN SICK IN THE PAST WEEK? NO . FEVER NO . FLU LIKE SYMPTOMS? NO . COUGH NO . INTEGUMENTARY: DO YOU HAVE ANY RASHES OR OPEN SORES? NO . ALLERGIC/IMMUNO: ARE YOU ALLERGIC TO SHELLFISH OR IV DYE? YES . ANY NEW ALLERGIES? NO . PSYCHIATRIC: DO YOU HAVE THOUGHTS OF HURTING YOURSELF OR SOMEONE ELSE? NO . ARE YOU ABUSED, NEGLECTED, OR IN AN UNSAFE ENVIRONMENT? NO . ENDOCRINOLOGY: ARE YOU DIABETIC? NO . OTHER: DO YOU NEED ANY PRESCRIPTIONS? NO . IF YES, PLEASE LIST: ____ . ANY NEW PROBLEMS WITH YOUR MEDICATIONS? NO . WHEN DID YOU LAST EAT? ____LAST NIGHT . WHEN DID YOU LAST DRINK? ____LAST NIGHT . WHAT DID YOU LAST DRINK? ____WATER . NAME OF PERSON DRIVING YOU HOME? ____HUSBAND ZACH . DO YOU HAVE ANY OTHER QUESTIONS OR CONCERNS NO . REVIEWED BY: PROVIDER: . VITAL SIGNS WT 240.0 LBS, HT 66 IN, BMI 38.73 INDEX, BP 125/66 MM HG, HR 83 /MIN, RR 16 /MIN, TEMP 97.2 F, OXYGEN SAT % 96%, SAFE IN ENV? (Y/N) YES, NA INITIALS TL 1138, REVIEWED BY: KG. ASSESSMENTS SACROILIITIS, NOT ELSEWHERE CLASSIFIED - M46.1 (PRIMARY) PROCEDURES PN SI PRE PROCEDURE DIAGNOSIS SACROILIITIS, SACROILIAC JOINT DYSFUNCTION POST PROCEDURE DIAGNOSIS SACROILIITIS, SACROILIAC JOINT DYSFUNCTION PROCEDURE BILATERAL SACROILIAC JOINT BLOCK SURGEON DR. PATY HANCOCK CERTIFIED REGISTERED DENTAL ASSISTANT NONE ANESTHESIA LOCAL PRE PROCEDURE NOTE PATIENT WITH HISTORY OF CHRONIC LOW BACK PAIN. I EVALUATED THE PATIENT AND REVIEWED THE CHART. I WENT OVER THE RISKS, ALTERNATIVES, AND BENEFITS ASSOCIATED WITH THIS PROCEDURE. THE PATIENT WOULD LIKE TO PROCEED AND GAVE CONSENT TO PERFORM THE PROCEDURE. THE PATIENT DENIES UNEXPLAINABLE WEIGHT LOSS, FEVER, CHILLS, OR NEW CHANGES IN URINARY OR BOWEL CONTROL DESCRIPTION OF PROCEDURE THE PATIENT WAS BROUGHT TO THE PROCEDURE ROOM AND PLACED IN THE PRONE POSITION. THE LUMBOSACRAL AREA WAS CLEANED WITH CHLORAPREP SOLUTION AND DRAPED ASEPTICALLY. THE PROCEDURE WAS DONE UNDER STERILE CONDITIONS. I CHECKED LATERALITY AND THE LEVEL WHERE THE PROCEDURE WAS GOING TO BE PERFORMED WITH THE PATIENT AND THE SUPPORTING STAFF AT THE MOMENT OF THE TIME OUT IN THE PROCEDURE ROOM. UNDER FLUOROSCOPIC GUIDANCE, TARGET POINT WAS SELECTED AT THE LOWER BORDER OF THE RIGHT AND LEFT SACROILIAC JOINT. TARGET POINT WAS SELECTED AFTER MEDIAL ROTATION AND TILT OF THE MAGNIFIER OF THE C-ARM. LIDOCAINE WAS USED TO NUMB THE SKIN AND SUBCUTANEOUS TISSUE BELOW IT. A SPINAL NEEDLE, 22-GAUGE, WAS ADVANCED UNDER FLUOROSCOPIC GUIDANCE AND FOLLOWING PATIENT FEEDBACK UNTIL THE TARGET AREA WAS TOUCHED. THE POSITION OF THE NEEDLE WAS VERIFIED WITH AP AND LATERAL VIEWS. AFTER PROPER POSITION OF THE NEEDLE WAS ACHIEVED, ISOVUE M DYE 30%, 0.25 ML, WAS INJECTED SHOWING SPREAD OF THE DYE. THEN, A SOLUTION OF 20 MG OF KENALOG WAS INJECTED IN RIGHT JOINT WITH 3 ML OF BUPIVACAINE 0.125%. THERE WAS NO EVIDENCE OF BLOOD, PARESTHESIA OR CEREBROSPINAL FLUID DURING THE PROCEDURE. THE PATIENT WAS SENT TO THE RECOVERY ROOM. THE PATIENT WAS MOVING THE EXTREMITIES AND DOING WELL. THERE WAS NO COMPLICATION DURING THE PROCEDURE. FLUOROSCOPY TIME WAS 13 SECONDS POST PROCEDURE NOTE THE PATIENT WILL BE SEEN IN A FOLLOW UP IN THE NEXT FEW WEEKS. INSTRUCTIONS WERE GIVEN, QUESTIONS WERE ANSWERED, AND THE PATIENT EXPRESSED UNDERSTANDING AND AGREED WITH THE PLAN. I, ADEEL AGUILA, DOCUMENTED THE ABOVE INFORMATION ACTING A SCRIBE FOR DR. HANCOCK. I HAVE REVIEWED THE ABOVE DOCUMENT, WRITTEN BY ADEEL AGUILA SCRIBGregory AND I VERIFY THAT IT IS ACCURATE DIAGNOSTIC IMAGING [facility] FLUORO GUIDANCE (PAIN)[id number] PROCEDURE CODES 32184 INJECT SACROILIAC JOINT 6045F RADXPS IN END [id number] PXD DISPOSITION & COMMUNICATION FOLLOW UP 3 WEEKS ELECTRONICALLY SIGNED BY PATY HANCOCK MD ON 04/26/2017 AT 06:57 PM EDT DISCLAIMER : THIS IS A VISIT SUMMARY EXTRACTED FROM THE [employer] CHART. IT IS NOT A COPY OF THE [employer] PROGRESS NOTE. MTDD
== END ==
LOC: M PAIN 11:40
PROVIDERS: ATTEND Anesthesiology
DX: G89.29 Other chronic pain (principal); M46.1 Sacroiliitis, not elsewhere classified; M54.5 Low back pain; Z79.891 Long term (current) use of opiate analgesic; Z79.899 Other long term (current) drug therapy; Z91.041 Radiographic dye allergy status; Z88.0 Allergy status to penicillin; Z88.6 Allergy status to analgesic agent
CPT/HCPCS: G0260; J3301

== ENCOUNTER 2017-05-15 09:25 | Emergency (ER) | payer OTHER, MEDICAID ==
[~2017-05-15] VITALS: Ht 167.6 cm; Wt 107.5 kg
[2017-05-15] MEDS ORDERED: TRAM50TA2 PO (09:36)
[2017-05-15] MEDS ORDERED: PROZ40CA PO (09:36)
[2017-05-15] MEDS ORDERED: TIZA4CAP3 PO (09:37)
[2017-05-15] MEDS ORDERED: ONDANSETRON 4MG/2ML VIAL (J2405) IV ONE (11:45)
[2017-05-15] MEDS ORDERED: NS 1,000 ML IV ONE (11:45)
[2017-05-15] MEDS ORDERED: KETOROLAC 30 MG/ML VIAL (J1885) IV ONE (11:45)
[2017-05-15 11:58] LABS: CONTROL LINE UCG INT CTR LINE PRESENT
[2017-05-15 12:00] LABS: BASO # 0.2 K/mm3 (0.0-0.2); BASO % 1.8 % (0.0-1.0); EOS # 0.1 K/mm3 (0.0-0.50); EOS % 1.2 % (0.0-3.0); LARGE UNSTAINED CELL # 0.2 K/mm3 (0.0-0.4); LARGE UNSTAINED CELL % 1.7 % (0.0-4.0); LYMPH # 3.8 K/mm3 (1.5-4.5); LYMPH % 41.4 % (24.0-44.0); MEAN CORPUSCULAR HEMOGLOBIN 31.9 pg (27.0-33.0); MEAN CORPUSCULAR HGB CONC 34.2 g/dl (32.0-36.5); MEAN CORPUSCULAR VOLUME 93.2 fl (80.0-96.0); MONO # 0.4 K/mm3 (0.0-0.8); MONO % 4.4 % (0.0-5.0); NEUTROPHILS # 4.5 K/mm3 (1.8-7.7); NEUTROPHILS % 49.6 % (36.0-66.0); PLATELET COUNT, AUTOMATED 325 k/mm3 (150-450); RED CELL DISTRIBUTION WIDTH 11.8 % (11.5-14.5); WHITE BLOOD COUNT 9.2 K/mm3 (4.0-10.0)
[2017-05-15 12:25] LABS: AMYLASE 26 U/L (25-115); ANION GAP 5 MEQ/L (8-16); BLOOD UREA NITROGEN 10 MG/DL (7-18); CALCIUM LEVEL 9.2 MG/DL (8.5-10.1); CARBON DIOXIDE LEVEL 30 MEQ/L (21-32); CHLORIDE LEVEL 102 MEQ/L (98-107); CREATININE FOR GFR 0.65 MG/DL (0.55-1.02); GLOMERULAR FILTRATION RATE > 60.0 (>60); GLUCOSE, FASTING 96 MG/DL (70-105); POTASSIUM SERUM 4.3 MEQ/L (3.5-5.1); SODIUM LEVEL 137 MEQ/L (136-145)
[2017-05-15 12:36] VITALS: BP 128/74
[2017-05-15] MEDS ORDERED: ZOFR4TAB3 PO (12:51)
[2017-09-23] MEDS ORDERED: CLON-412 PO (17:14)
[2017-09-23] MEDS ORDERED: PANT40TA2 PO (17:14)
[2017-09-23] MEDS ORDERED: MACR100C43 PO (20:41)
== END 2017-05-15 13:06 | disposition home or self-care (01) ==
LOC: M ED 12:05
DX: R10.84 Generalized abdominal pain (principal); R11.2 Nausea with vomiting, unspecified; R19.7 Diarrhea, unspecified
CPT/HCPCS: 80048; 81001; 82150; 83690; 84703; 85025; 86140; 96374; 96375; 99283; J1885; J2405

== ENCOUNTER → 2017-06-16 | Outpatient (CLI) | payer MEDICAID ==
[~2017-06-16] MED LIST changes: -BUPIVACAINE HCL 0.25% 30 ML VIAL As Ordered ONE; +CLON-412 PO; -LIDOCAINE 1% SDV INJ 30 ML VIAL As Ordered ONE; +MACR100C43 PO; +PANT40TA2 PO; +PROZ40CA PO; +TIZA4CAP3 PO; +TRAM50TA2 PO; -TRIAMCINOLONE ACETONIDE SUSP 40 MG/ML VIAL (J3301) As Ordered ONE; +ZOFR4TAB3 PO; -diazePAM 5 MG TAB As Ordered ONE; -oxyCODONE 5MG TAB As Ordered ONE
--- NOTE | 2017-07-05 01:21 | ECWPNPC ---
PATIENT NAME: EDOUARD ALCALA : 1985 GENDER: FEMALE VISIT DATE: 06/16/2017 DISCHARGE DATE: 06/16/17 1529 VISIT LOCKED DATE TIME: PHYSICIAN: PATY HANCOCK RESOURCE: PATY HANCOCK REASON FOR APPOINTMENT 1. LOW BACK PAIN HISTORY OF PRESENT ILLNESS HISTORY OF PRESENT ILLNESS: PAIN THE PATIENT DESCRIBES THE PAIN... 31 YEAR OLD FEMALE PATIENT HISTORY OF CHRONIC BACK PAIN. PATIENT DESCRIBES THE PAIN ACHING, SHARP, STABBING, TENDER, THROBBING, SORE, SHOOTING, AND HAVING IT ALL THE TIME WITH A PAIN SCORE OF 8.5/10 ON TODAY'S VISIT. PATIENT RECEIVED A BILATERAL SIJ IN 04/22/2017 AND STATES THAT SHE ONLY HAD RELIEF FROM THE INJECTION FOR 3-4 DAYS. PATIENT STATES THAT HER PAIN NOW RADIATES FROM HER LOW BACK UP TO HER NECK AREA. PATIENT REPORTS THAT SHE CAN NOT TAKE IBUPROFEN DUE TO STOMACH ULCERS BUT DOES USE TYLENOL TO AID IN PAIN RELIEF ALONG WITH TRAMADOL AND TIZANIDINE. PATIENT DENIES UNEXPLAINABLE WEIGHT LOSS, FEVER, CHILLS, NEW CHANGES ON HER URINARY OR BOWEL CONTROL. FALL RISK SCREENING: SCREENING :NO FALLS IN THE PAST YEAR CURRENT MEDICATIONS TAKING PROTONIX 40 MG TABLET DELAYED RELEASE 1 TABLET ORALLY ONCE A DAY, NOTES: 04-21-172199 TAKING FLUOXETINE 20 MG CAPSULE 3 CAPSULE IN THE MORNING ORALLY ONCE A DAY, NOTES: 04-21-20172199 TAKING TYLENOL 325 MG TABLET 2 TABLETS NEEDED ORALLY EVERY 6 HRS, NOTES: 04-21-172199 TAKING TRAMADOL HCL 50 MG TABLET 1 TAB ORALLY EVERY 6 HRS PRN MDD4, NOTES: 04-21-172199 TAKING TIZANIDINE HCL 4 MG TABLET 1 ORALLY BEFORE BEDTIME MAY REPEAT IN 4HRS MDD2, NOTES: 04-21-172199 NOT-TAKING VITAMIN D 2000 UNIT CAPSULE 1 CAPSULE ORALLY ONCE A DAY, NOTES: 12/16/16@2130 NOT-TAKING FLUCONAZOLE 150 MG TABLET 1 TABLET ORALLY MEDICATION LIST REVIEWED AND RECONCILED WITH THE PATIENT PAST MEDICAL HISTORY MILD DISPLASIA ULCER BUSITIS CARPAL TUNNEL ARTHRITIS PTSD MIGRAINES SCOLIOSIS FATTY LIVER DISEASE ALLERGIES CONTRAST: HIVES: SIDE EFFECTS YLENOL WITH CODEINE: RASH: SIDE EFFECTS PENICILLIN (FOR ALLERGIES USE ONLY) REVIEW OF SYSTEMS REVIEWED BY: PROVIDER: PATY HANCOCK MD . CONSTITUTIONAL: ANY CHANGE IN YOUR MEDICAL CONDITION? NO . CHILLS NO . FEVER NO . INFECTION: DO YOU HAVE NEW INFECTIONS? NO . DO YOU HAVE HISTORY OF MRSA? NO . MUSCULOSKELETAL: ANY NEW PATTERNS OF PAIN OR NUMBNESS? YES PT REPORTS PAIN MID UPPER BACK, DOWN TO BUTTOCKS, UNABLE TO SIT FOR > 30 MINUTES AT A TIME. . GASTROENTEROLOGY: ANY NEW CHANGE IN BOWEL CONTROL? NO . GENITOURINARY: ANY NEW CHANGE IN BLADDER CONTROL? NO . IS THERE A CHANCE YOU COULD BE ? NO . HEMATOLOGY/LYMPH: DO YOU TAKE ANY BLOOD THINNERS? (FOR EXAMPLE- COUMADIN, PLAVIX, AGGRENOX, PLATEL, PRADAXA, OR XARELTO) NO . WHEN WAS YOUR LAST DOSE? DATE: TIME: . NEUROLOGY: HAVE YOU FALLEN IN THE PAST 6 MONTHS? YES PT REPORTS A FALL THREE MONTHS AGO, KNEE &QUOT;GAVE OUT&QUOT; WHEN GOING DOWN STAIRS, SLIPPED DOWN AN ENTIRE FLIGHT OF STAIRS, NO INJURIES, NO ED VISIT . ANY NEW EXTREMITY NUMBNESS OR WEAKNESS? NO . CARDIOLOGY: DO YOU HAVE A PACEMAKER OR DEFIBRILLATOR? NO . RESPIRATORY: HAVE YOU BEEN SICK IN THE PAST WEEK? NO . FEVER NO . FLU LIKE SYMPTOMS? NO . COUGH NO . INTEGUMENTARY: DO YOU HAVE ANY RASHES OR OPEN SORES? NO . ALLERGIC/IMMUNO: ARE YOU ALLERGIC TO SHELLFISH OR IV DYE? YES . ANY NEW ALLERGIES? NO . PSYCHIATRIC: DO YOU HAVE THOUGHTS OF HURTING YOURSELF OR SOMEONE ELSE? NO . ARE YOU ABUSED, NEGLECTED, OR IN AN UNSAFE ENVIRONMENT? NO . ENDOCRINOLOGY: ARE YOU DIABETIC? NO . OTHER: DO YOU NEED ANY PRESCRIPTIONS? YES . IF YES, PLEASE LIST: ____TRAMADOL AND TIZANIDINE 06/29 . ANY NEW PROBLEMS WITH YOUR MEDICATIONS? NO . WHEN DID YOU LAST EAT? ____ . WHEN DID YOU LAST DRINK? ____ . WHAT DID YOU LAST DRINK? ____ . NAME OF PERSON DRIVING YOU HOME? ____ . DO YOU HAVE ANY OTHER QUESTIONS OR CONCERNS NO . VITAL SIGNS WT 235 LBS, HT 66 IN, BMI 37.93 INDEX, BP 138/80 MM HG, HR 106 /MIN, RR 16 /MIN, TEMP 97.1 F, OXYGEN SAT % 95%, SAFE IN ENV? (Y/N) YES, NA INITIALS TR 1345, REVIEWED BY: CHILANGO. EXAMINATION : PATIENT IS ALERT O X 3 AND COOPERATIVE. THERE IS TENDERNESS IN THE SACROCOCCYGEAL LIGAMENT. ASSESSMENTS SPINAL ENTHESOPATHY, SACRAL AND SACROCOCCYGEAL REGION - M46.08 (PRIMARY) MYALGIA - M79.1 TREATMENT MYALGIA REFILL TRAMADOL HCL TABLET, 50 MG, 1 TAB, ORALLY, EVERY 6 HRS PRN MDD4, 30 DAY(S), 75, REFILLS 0, NOTES: 04-21-172199 REFILL TIZANIDINE HCL TABLET, 4 MG, 1, ORALLY, BEFORE BEDTIME MAY REPEAT IN 4HRS MDD2, 30 DAY(S), 60, REFILLS 2, NOTES: 04-21-172199 NOTES: WE DISCUSSED SEVERAL ISSUES WITH MRS. ALCALA'S PAIN MANAGEMENT CASE. AT THIS TIME THE PATIENT WILL CONTINUE WITH THE SAME MEDICATION REGIME BEFORE. PATIENT IS USING THE TRAMADOL FOR THE SOMATIC PAIN AND TIZANIDINE FOR THE MUSCLE SPASMS. PATIENT DENIES ABUSE OF ANY MEDICATION, DENIES USE OF ILLEGAL SUBSTANCES, AND STATES SHE IS ONLY USING THE MEDICATION FOR PAIN MANAGEMENT. URINE TOXICOLOGY DONE ON 04/15/17 SHOWS CONSISTENT RESULTS WIT THE PATIENTS MEDICATION LIST. DUE TO THE INFLAMMATION AND PAIN AT THE SACROCOCCYGEAL LIGAMENT I WOULD LIKE TO MOVE FORWARD WITH AN INJECTION AT THAT LOCATION. WE DISCUSSED THE RISKS, BENENFITS, AND ALTNERATIVES OF THE INJECTION AND THE PATIENT WOULD LIKE TO PROCEED AT THIS TIME. INSTRUCTIONS WERE GIVEN, QUESTIONS WERE ANSWERED, PATIENT REPORTS UNDERSTANDING AND AGREES WITH THE PLAN. I, NORMA SAVAGE, DOCUMENTED THE ABOVE INFORMATION ACTING A SCRIBE FOR DR. HANCOCK. I HAVE REVIEWED THE ABOVE DOCUMENT, WRITTEN BY NORMA MADNEL AND I VERIFY THAT IT IS ACCURATE. PROCEDURE CODES FA211 ESTABILISHED PATIENT [facility] FACILITY CHARGE G8427 DOC MEDS VERIFIED W/PT OR RE G8730 PAIN ASSESS POS TOOL F/U PLAN DOC DISPOSITION & COMMUNICATION FOLLOW UP SACROCOCCYGEAL LIGAMENT INJ ELECTRONICALLY SIGNED BY PATY HANCOCK MD ON 07/04/2017 AT 08:13 PM EDT DISCLAIMER : THIS IS A VISIT SUMMARY EXTRACTED FROM THE [employer] CHART. IT IS NOT A COPY OF THE [employer] PROGRESS NOTE. LORENZOD
== END ==
LOC: M PAIN 13:20
PROVIDERS: ATTEND Anesthesiology
DX: G89.29 Other chronic pain (principal); M46.08 Spinal enthesopathy, sacral and sacrococcygeal region; M79.1 Myalgia; M19.90 Unspecified osteoarthritis, unspecified site; F43.10 Post-traumatic stress disorder, unspecified; Z91.041 Radiographic dye allergy status; Z88.5 Allergy status to narcotic agent; Z88.0 Allergy status to penicillin; Z79.891 Long term (current) use of opiate analgesic; Z79.899 Other long term (current) drug therapy

== ENCOUNTER → 2017-07-18 | Outpatient (CLI) | payer MEDICAID ==
[2017-07-18 10:30] LABS: ALBUMIN 3.9 GM/DL (3.2-5.2); ALKALINE PHOSPHATASE 52 U/L (45-117); ALT/SGPT 95 U/L (12-78); ANION GAP 8 MEQ/L (8-16); AST/SGOT 43 U/L (15-37); BILIRUBIN,TOTAL 0.4 MG/DL (0.2-1.0); BLOOD UREA NITROGEN 10 MG/DL (7-18); CALCIUM LEVEL 8.5 MG/DL (8.5-10.1); CARBON DIOXIDE LEVEL 29 MEQ/L (21-32); CHLORIDE LEVEL 103 MEQ/L (98-107); CHOLESTEROL LEVEL 221 MG/DL (<200); GLOMERULAR FILTRATION RATE > 60.0 (>60); GLUCOSE, FASTING 99 MG/DL (70-105); POTASSIUM SERUM 4.5 MEQ/L (3.5-5.1); SODIUM LEVEL 140 MEQ/L (136-145); TOTAL PROTEIN 6.9 GM/DL (6.4-8.2); TRIGLYCERIDES LEVEL 347 MG/DL (<150)
== END ==
LOC: M LAB 09:29
PROVIDERS: ATTEND Registered Nurse Psychiatric/Mental Health
DX: F33.1 Major depressive disorder, recurrent, moderate (principal)

== ENCOUNTER → 2017-08-04 | Outpatient (CLI) | payer MEDICAID ==
[~2017-08-04] MED LIST changes: +BUPIVACAINE HCL 0.25% 30 ML VIAL As Ordered ONE; +ISOVUE-M 300 61% 15ML VIAL (Q9967) As Ordered ONE; +LIDOCAINE 1% SDV INJ 30 ML VIAL As Ordered ONE; +TRIAMCINOLONE ACETONIDE SUSP 40 MG/ML VIAL (J3301) As Ordered ONE; +diazePAM 5 MG TAB As Ordered ONE; +diphenhydrAMINE 25 MG CAP As Ordered ONE; +oxyCODONE 5MG TAB As Ordered ONE
--- NOTE | 2017-08-04 11:13 | REP ---
Partial sacrum and coccyx: Seven views. History: Sacral coccygeal ligament injection for pain. 18 seconds of fluoroscopy time is reported. Findings: A sequence of seven last image hold fluoroscopic spot radiographs document various needle positions and contrast injection related to injection procedure. Signed by Ramesh Malcolm MD 08/04/2017 01:11 P
--- NOTE | 2017-08-05 00:13 | ECWPNPC ---
PATIENT NAME: EDOUARD ALCALA : 1985 GENDER: FEMALE VISIT DATE: 08/04/2017 DISCHARGE DATE: 08/04/17 1104 VISIT LOCKED DATE TIME: PHYSICIAN: PATY HANCOCK RESOURCE: PATY HANCOCK REASON FOR APPOINTMENT 1. SACRO-COCCYGEAL LIGAMENT HISTORY OF PRESENT ILLNESS HISTORY OF PRESENT ILLNESS: PAIN THE PATIENT DESCRIBES THE PAIN... FALL RISK SCREENING: SCREENING :NO FALLS IN THE PAST YEAR CURRENT MEDICATIONS TAKING PROTONIX 40 MG TABLET DELAYED RELEASE 1 TABLET ORALLY ONCE A DAY, NOTES: 08/03/172099 TAKING FLUOXETINE 20 MG CAPSULE 3 CAPSULE IN THE MORNING ORALLY ONCE A DAY, NOTES: 08/03/172099 TAKING TYLENOL 325 MG TABLET 2 TABLETS NEEDED ORALLY EVERY 6 HRS, NOTES: 08/02/17 TAKING TIZANIDINE HCL 4 MG TABLET 1 ORALLY BEFORE BEDTIME MAY REPEAT IN 4HRS MDD2, NOTES: 08/03/172099 TAKING TRAMADOL HCL 50 MG TABLET 1 TAB ORALLY EVERY 6 HRS PRN MDD4, NOTES: 08/03/172129 NOT-TAKING VITAMIN D 2000 UNIT CAPSULE 1 CAPSULE ORALLY ONCE A DAY, NOTES: 12/16/16@2130 NOT-TAKING FLUCONAZOLE 150 MG TABLET 1 TABLET ORALLY MEDICATION LIST REVIEWED AND RECONCILED WITH THE PATIENT PAST MEDICAL HISTORY MILD DISPLASIA ULCER BUSITIS CARPAL TUNNEL ARTHRITIS PTSD MIGRAINES SCOLIOSIS FATTY LIVER DISEASE ALLERGIES CONTRAST: HIVES: SIDE EFFECTS YLENOL WITH CODEINE: RASH: SIDE EFFECTS PENICILLIN (FOR ALLERGIES USE ONLY) SURGICAL HISTORY DENIES PAST SURGICAL HISTORY HOSPITALIZATION/MAJOR DIAGNOSTIC PROCEDURE DENIES PAST HOSPITALIZATION REVIEW OF SYSTEMS REVIEWED BY: PROVIDER: . CONSTITUTIONAL: ANY CHANGE IN YOUR MEDICAL CONDITION? NO . CHILLS NO . FEVER NO . INFECTION: DO YOU HAVE NEW INFECTIONS? NO . DO YOU HAVE HISTORY OF MRSA? NO . MUSCULOSKELETAL: ANY NEW PATTERNS OF PAIN OR NUMBNESS? YES, HANDS AND FEET NUMBNESS . GASTROENTEROLOGY: ANY NEW CHANGE IN BOWEL CONTROL? NO . GENITOURINARY: ANY NEW CHANGE IN BLADDER CONTROL? NO . IS THERE A CHANCE YOU COULD BE ? NO . HEMATOLOGY/LYMPH: DO YOU TAKE ANY BLOOD THINNERS? (FOR EXAMPLE- COUMADIN, PLAVIX, AGGRENOX, PLATEL, PRADAXA, OR XARELTO) NO . WHEN WAS YOUR LAST DOSE? DATE: TIME: . NEUROLOGY: HAVE YOU FALLEN IN THE PAST 6 MONTHS? YES, PT STATES SHE FELL DOWN 15 STEPS ONTO WOOD SUYAPA FROM KNEE GIVING OUT. PT DENIES MAJOR INJURING REQUIRING MEDICAL ATTENTION. PT STATES SHE FALLS REGULARLY . ANY NEW EXTREMITY NUMBNESS OR WEAKNESS? NO . CARDIOLOGY: DO YOU HAVE A PACEMAKER OR DEFIBRILLATOR? NO . RESPIRATORY: HAVE YOU BEEN SICK IN THE PAST WEEK? NO . FEVER NO . FLU LIKE SYMPTOMS? NO . COUGH NO . INTEGUMENTARY: DO YOU HAVE ANY RASHES OR OPEN SORES? NO . ALLERGIC/IMMUNO: ARE YOU ALLERGIC TO SHELLFISH OR IV DYE? YES, IV DYE . ANY NEW ALLERGIES? NO . PSYCHIATRIC: DO YOU HAVE THOUGHTS OF HURTING YOURSELF OR SOMEONE ELSE? NO . ARE YOU ABUSED, NEGLECTED, OR IN AN UNSAFE ENVIRONMENT? NO . ENDOCRINOLOGY: ARE YOU DIABETIC? NO . OTHER: DO YOU NEED ANY PRESCRIPTIONS? YES, TRAMADOL AND MUSCLE RELAXANTS DUE 08/18/17 . IF YES, PLEASE LIST: ____ . ANY NEW PROBLEMS WITH YOUR MEDICATIONS? NO . WHEN DID YOU LAST EAT? 08/03/17 1730 . WHEN DID YOU LAST DRINK? 08/03/172129 . WHAT DID YOU LAST DRINK? WATER . NAME OF PERSON DRIVING YOU HOME? TEE JONES . DO YOU HAVE ANY OTHER QUESTIONS OR CONCERNS NO . VITAL SIGNS WT 235 LBS, HT 66 IN, BMI 37.93 INDEX, BP 122/65 MM HG, HR 61 /MIN, RR 18 /MIN, TEMP 98.7 F, OXYGEN SAT % 98, REVIEWED BY: EM. ASSESSMENTS SPINAL ENTHESOPATHY, SACRAL AND SACROCOCCYGEAL REGION - M46.08 (PRIMARY) TREATMENT OTHERS NOTES: PREPROCEDURE DIAGNOSIS:INFLAMMATION OF THE SACROCOCCYGEAL LIGAMENT.POSTPROCEDURE DIAGNOSIS:INFLAMMATION OF THE SACROCOCCYGEAL LIGAMENT.PROCEDURE: INJECTION OF THE RIGHT AND LEFT SACROCOCCYGEAL LIGAMENT. SURGEON: DR. PATY HANCOCKHIGHLAND RIDGE HOSPITALMIKAYLAANESTHESIA: LOCAL.PREOPERATIVE NOTE: THE PATIENT HAS HISTORY OF LOW BACK PAIN. I EVALUATED THE PATIENT AND REVIEWED THE CHART. WE BOTH AGREE ON INJECTING OVER THE SACROCOCCYGEAL LIGAMENT. THE PATIENT IS AWARE OF THE POTENTIAL COMPLICATIONS WHICH INCLUDE INFECTIONS, VISCERAL PUNCTURE, INCLUDING RECTAL PUNCTURE AMONG OTHERS. I DISCUSSED ALTERNATIVES AND THE PATIENT EXPRESSED THAT SHE WOULD LIKE TO MOVE FORWARD. THE PATIENT DENIES UNEXPLAINABLE, WEIGHT LOSS, FEVER, CHILLS, OR CHANGES IN URINARY OR BOWEL CONTROL. DESCRIPTION OF PROCEDURE: AFTER CONSENT WAS TAKEN, THE PATIENT WAS BROUGHT TO THE PROCEDURE ROOM AND PLACED IN THE PRONE POSITION. THE LUMBOSACRAL AREA WAS CLEANED WITH CHLORAPREP SOLUTION AND DRAPED ASEPTICALLY. THE PROCEDURE WAS DONE UNDER STERILE CONDITIONS. UNDER FLUOROSCOPIC GUIDANCE, THE TARGET WAS SELECTED AT THE RIGHT AND LEFT SACROCOCCYGEAL LIGAMENT. LIDOCAINE WAS USED TO NUMB THE SKIN AND THE SUBCUTANEOUS TISSUE BELOW IT. A 25 NEEDLE WAS ADVANCED UNTIL WE REACHED THE RIGHT AND LEFT SACROCOCCYGEAL LIGAMENT. I DID AP AND LATERAL VIEWS. ISOVUE M DYE 30%, 1/4 ML, WAS INJECTED SHOWING ADEQUATE SPREAD OF THE DYE. THEN A SOLUTION OF 30 ML OF BUPIVACAINE 0.125% WITH KENALOG 30 MG WAS INJECTED OVER THE AFFECTED STRUCTURE. THERE WAS NO EVIDENCE OF BLOOD, PARESTHESIA OR CEREBROSPINAL FLUID. NO EVIDENCE OF VACUUM PHENOMENON OR VISCERAL PUNCTURE. THE PATIENT WAS SENT TO THE RECOVERY ROOM WHERE SHE WAS MOVING HER EXTREMITIES AND DOING WELL. THERE WERE NO COMPLICATIONS DURING THE PROCEDURE. FLUOROSCOPY TIME WAS 18 SECONDSPOSTOPERATIVE NOTE: I DISCUSSED ALTERNATIVES WITH THE PATIENT. I AM LOOKING FOR LONG LASTING PAIN RELIEF WITH THIS INTERVENTION. INSTRUCTIONS WERE GIVEN. QUESTIONS WERE ANSWERED. THE PATIENT REPORTS UNDERSTANDING AND AGREES WITH THE PLAN. THERE WERE NO COMPLICATIONS DURING THE PROCEDURE.I, NORMA SAVAGE, DOCUMENTED THE ABOVE INFORMATION ACTING A SCRIBE FOR DR. HANCOCK. I HAVE REVIEWED THE ABOVE DOCUMENT, WRITTEN BY NORMA MANDEL AND I VERIFY THAT IT IS ACCURATE. DIAGNOSTIC IMAGING [facility] FLUORO GUIDANCE (PAIN)[id number] PROCEDURE CODES 89005 INJ TENDON SHEATH/LIGAMENT 24787 NEEDLE LOCALIZATION BY XRAY 6045F RADXPS IN END [id number] PXD DISPOSITION & COMMUNICATION FOLLOW UP 3 WEEKS ELECTRONICALLY SIGNED BY PATY HANCOCK MD ON 08/04/2017 AT 01:20 PM EDT DISCLAIMER : THIS IS A VISIT SUMMARY EXTRACTED FROM THE [email or web address] CHART. IT IS NOT A COPY OF THE [email or web address] PROGRESS NOTE. MTDD
== END ==
LOC: M PAIN 08:30
PROVIDERS: ATTEND Anesthesiology
DX: G89.29 Other chronic pain (principal); M46.08 Spinal enthesopathy, sacral and sacrococcygeal region; M54.5 Low back pain; Z79.891 Long term (current) use of opiate analgesic; Z79.899 Other long term (current) drug therapy; Z91.041 Radiographic dye allergy status; Z88.6 Allergy status to analgesic agent; Z88.0 Allergy status to penicillin
CPT/HCPCS: 20550; 77002; J3301; Q9967

== ENCOUNTER → 2017-09-16 | Outpatient (CLI) | payer MEDICAID ==
[~2017-09-16] MED LIST changes: -BUPIVACAINE HCL 0.25% 30 ML VIAL As Ordered ONE; -ISOVUE-M 300 61% 15ML VIAL (Q9967) As Ordered ONE; -LIDOCAINE 1% SDV INJ 30 ML VIAL As Ordered ONE; -TRIAMCINOLONE ACETONIDE SUSP 40 MG/ML VIAL (J3301) As Ordered ONE; -diazePAM 5 MG TAB As Ordered ONE; -diphenhydrAMINE 25 MG CAP As Ordered ONE; -oxyCODONE 5MG TAB As Ordered ONE
--- NOTE | 2017-10-05 02:28 | ECWPNPC ---
PATIENT NAME: EDOUARD ALCALA : 1985 GENDER: FEMALE VISIT DATE: 09/16/2017 DISCHARGE DATE: 09/16/17 1417 VISIT LOCKED DATE TIME: PHYSICIAN: PATY HANCOCK RESOURCE: PATY HANCOCK REASON FOR APPOINTMENT 1. LOW BACK PAIN HISTORY OF PRESENT ILLNESS HISTORY OF PRESENT ILLNESS: PAIN THE PATIENT DESCRIBES THE PAIN... 32 YEAR OLD FEMALE PATIENT HISTORY OF CHRONIC BACK PAIN. PATIENT DESCRIBES THE PAIN ACHING, SHARP, STABBING, TENDER, THROBBING, SORE, SHOOTING, AND HAVING IT ALL THE TIME WITH A PAIN SCORE OF 9.5/10 ON TODAY'S VISIT. PATIENT STATES THAT HER PAIN NOW RADIATES FROM HER LOW BACK UP TO HER NECK AREA. PATIENT REPORTS THAT SHE CAN NOT TAKE IBUPROFEN DUE TO STOMACH ULCERS BUT DOES USE TYLENOL TO AID IN PAIN RELIEF ALONG WITH TRAMADOL AND TIZANIDINE. PATIENT DENIES UNEXPLAINABLE WEIGHT LOSS, FEVER, CHILLS, NEW CHANGES ON HER URINARY OR BOWEL CONTROL. FALL RISK SCREENING: SCREENING :NO FALLS IN THE PAST YEAR CURRENT MEDICATIONS TAKING PROTONIX 40 MG TABLET DELAYED RELEASE 1 TABLET ORALLY ONCE A DAY TAKING TYLENOL 325 MG TABLET 2 TABLETS NEEDED ORALLY EVERY 6 HRS TAKING TRAMADOL HCL 50 MG TABLET 1 TAB ORALLY EVERY 6 HRS PRN MDD4 TAKING TIZANIDINE HCL 4 MG TABLET 1 ORALLY BEFORE BEDTIME MAY REPEAT IN 4HRS MDD2 TAKING HYDROXYZINE HCL 50 MG TABLET 1 TABLET NEEDED ORALLY TID TAKING CLONAZEPAM 1 MG TABLET 1 TABLET ORALLY DAILY PRN TAKING DESVENLAFAXINE SUCCINATE ER 25 MG TABLET EXTENDED RELEASE 24 HOUR 2 TABLETS ORALLY ONCE A DAY TAKING VITAMIN D (ERGOCALCIFEROL) 38658 UNIT CAPSULE 1 CAPSULE ORALLY TAKING CLONIDINE HCL 0.1 MG TABLET 1 TABLET AT BEDTIME ORALLY TID PRN TAKING CITALOPRAM HYDROBROMIDE 20 MG TABLET 1 TABLET ORALLY ONCE A DAY TAKING PRAZOSIN HCL 1 MG CAPSULE 1-2 CAPSULE AT BEDTIME ORALLY ONCE A DAY PRN TAKING FLUCONAZOLE 150 MG TABLET 1 TABLET ORALLY WEEKLY NOT-TAKING FLUOXETINE 20 MG CAPSULE 3 CAPSULE IN THE MORNING ORALLY ONCE A DAY NOT-TAKING VITAMIN D 2000 UNIT CAPSULE 1 CAPSULE ORALLY ONCE A DAY MEDICATION LIST REVIEWED AND RECONCILED WITH THE PATIENT PAST MEDICAL HISTORY MILD DISPLASIA ULCER BUSITIS CARPAL TUNNEL ARTHRITIS PTSD MIGRAINES SCOLIOSIS FATTY LIVER DISEASE ALLERGIES CONTRAST: HIVES: SIDE EFFECTS YLENOL WITH CODEINE: RASH: SIDE EFFECTS PENICILLIN (FOR ALLERGIES USE ONLY) SURGICAL HISTORY DENIES PAST SURGICAL HISTORY SOCIAL HISTORY GENERAL: TOBACCO USE ARE YOU A:NONSMOKER LEARNING BARRIERS / SPECIAL NEEDS ORIENTED TO PLAN OF CARE: PATIENT, PAIN MANAGEMENT PATIENT, ORIENTED TO PLAN OF CARE: PATIENT, PAIN MANAGEMENT PATIENT. NEW PATIENT PAIN DIARY TODAY'S VISITNOTES FROM 0-10, WHAT LEVEL IS YOUR PAIN TODAY?0 PAIN CLINIC PFS, CLERGY, PUBLIC HEALTH REFERRALS PFS REFERRAL NEEDED?NO CLERGY REFERRAL NEEDED?NO PUBLIC HEALTH REFERRAL NEEDED?NO WAS THE PROVIDER NOTIFIED OF ANY PERTINENT INFO?NO HAS THE PATIENT BEEN EDUCATED REGARDING HIS/HER PLAN OF CARE?YES HAS THE PATIENT BEEN EDUCATED REGARDING PAIN, THE RISK FOR PAIN, THE IMPORTANCE OF EFFECTIVE PAIN MANAGEMENT, AND THE PAIN ASSESSMENT PROCESS?YES HOSPITALIZATION/MAJOR DIAGNOSTIC PROCEDURE CHILDBIRTH REVIEW OF SYSTEMS REVIEWED BY: PROVIDER: PATY HANCOCK MD . CONSTITUTIONAL: ANY CHANGE IN YOUR MEDICAL CONDITION? NO . CHILLS NO . FEVER NO . INFECTION: DO YOU HAVE NEW INFECTIONS? NO . DO YOU HAVE HISTORY OF MRSA? NO . MUSCULOSKELETAL: ANY NEW PATTERNS OF PAIN OR NUMBNESS? YES, PT REPORTS HAVING TROUBLE HOLDING THINGS IN HER HANDS TO THE POINT OF DROPPING THINGS . GASTROENTEROLOGY: ANY NEW CHANGE IN BOWEL CONTROL? NO . GENITOURINARY: ANY NEW CHANGE IN BLADDER CONTROL? NO . IS THERE A CHANCE YOU COULD BE ? NO . HEMATOLOGY/LYMPH: DO YOU TAKE ANY BLOOD THINNERS? (FOR EXAMPLE- COUMADIN, PLAVIX, AGGRENOX, PLATEL, PRADAXA, OR XARELTO) NO . WHEN WAS YOUR LAST DOSE? DATE: TIME: . NEUROLOGY: HAVE YOU FALLEN IN THE PAST 6 MONTHS? YES, PT REPORTS WEAKNESS IN LEFT KNEE CAUSING HER TO FALL FREQUENTLY . ANY NEW EXTREMITY NUMBNESS OR WEAKNESS? NO . CARDIOLOGY: DO YOU HAVE A PACEMAKER OR DEFIBRILLATOR? NO . RESPIRATORY: HAVE YOU BEEN SICK IN THE PAST WEEK? NO . FEVER NO . FLU LIKE SYMPTOMS? NO . COUGH NO . INTEGUMENTARY: DO YOU HAVE ANY RASHES OR OPEN SORES? NO . ALLERGIC/IMMUNO: ARE YOU ALLERGIC TO SHELLFISH OR IV DYE? YES, IV DYE . ANY NEW ALLERGIES? NO . PSYCHIATRIC: DO YOU HAVE THOUGHTS OF HURTING YOURSELF OR SOMEONE ELSE? NO . ARE YOU ABUSED, NEGLECTED, OR IN AN UNSAFE ENVIRONMENT? NO . ENDOCRINOLOGY: ARE YOU DIABETIC? NO . OTHER: DO YOU NEED ANY PRESCRIPTIONS? NO . IF YES, PLEASE LIST: ____ . ANY NEW PROBLEMS WITH YOUR MEDICATIONS? YES, TRAMADOL IS NOT WORKING . WHEN DID YOU LAST EAT? ____ . WHEN DID YOU LAST DRINK? ____ . WHAT DID YOU LAST DRINK? ____ . NAME OF PERSON DRIVING YOU HOME? ____ . DO YOU HAVE ANY OTHER QUESTIONS OR CONCERNS NO . VITAL SIGNS WT 228.4 LBS, HT 66 IN, BMI 36.86 INDEX, BP 124/77 MM HG, HR 62 /MIN, RR 18 /MIN, TEMP 97.9 F, OXYGEN SAT % 99%, NA INITIALS SC 13:12, REVIEWED BY: EM. EXAMINATION : PATIENT IS ALERT O X 3 AND COOPERATIVE. THERE IS TENDERNESS IN THE SACROCOCCYGEAL LIGAMENT. ASSESSMENTS SPINAL ENTHESOPATHY, SACRAL AND SACROCOCCYGEAL REGION - M46.08 (PRIMARY) MYALGIA - M79.1 TREATMENT SPINAL ENTHESOPATHY, SACRAL AND SACROCOCCYGEAL REGION NOTES: WE DISCUSSED SEVERAL ISSUES WITH MRS. ALCALA'S PAIN MANAGEMENT CASE. I WOULD LIKE TO DISCUSS MEDICATION MANAGEMENT WITH THE PATIENT'S PRIMARY CARE PHYSICIAN ([phone]) WELL AT THE PATIENT'S BEHAVIORAL HEALTH DOCTOR, NAE OWENS ([phone]). PATIENT WILL BE REFERRED TO A NEUROLOGIST DUE TO THE NUMBNESS IN HER HANDS AND FEET. AFTER VIEWING THE MRI AND THE PATIENT STATING SHE IS HAVING A LOT OF RADICULAR PAIN I WOULD LIKE TO PROCEED WITH A LUMBAR EPIDURAL. WE DISCUSSED THE RISKS, BENENFITS, AND ALTNERATIVES OF THE INJECTION AND THE PATIENT WOULD LIKE TO PROCEED AT THIS TIME. INSTRUCTIONS WERE GIVEN, QUESTIONS WERE ANSWERED, PATIENT REPORTS UNDERSTANDING AND AGREES WITH THE PLAN. I, NORMA SAVAGE, DOCUMENTED THE ABOVE INFORMATION ACTING A SCRIBE FOR DR. HANCOCK. I HAVE REVIEWED THE ABOVE DOCUMENT, WRITTEN BY NORMA MANDEL AND I VERIFY THAT IT IS ACCURATE. PROCEDURE CODES FA211 ESTABILISHED PATIENT [facility]ACILITY CHARGE G8427 DOC MEDS VERIFIED W/PT OR RE G9670 PAIN ASSESS POS TOOL F/U PLAN DOC DISPOSITION & COMMUNICATION FOLLOW UP LESI AFTER APPROVAL ELECTRONICALLY SIGNED BY PATY HANCOCK MD ON 10/04/2017 AT 12:13 PM EST DISCLAIMER : THIS IS A VISIT SUMMARY EXTRACTED FROM THE [employer] CHART. IT IS NOT A COPY OF THE [employer] PROGRESS NOTE. LIZBETH
== END ==
LOC: M PAIN 13:15
PROVIDERS: ATTEND Anesthesiology
DX: M46.08 Spinal enthesopathy, sacral and sacrococcygeal region (principal); M79.1 Myalgia; G89.29 Other chronic pain; R29.6 Repeated falls; Z79.891 Long term (current) use of opiate analgesic; Z79.899 Other long term (current) drug therapy; Z91.041 Radiographic dye allergy status; Z88.6 Allergy status to analgesic agent; Z88.0 Allergy status to penicillin

== ENCOUNTER → 2017-09-21 | Outpatient (CLI) | payer MEDICAID ==
[~2017-09-21] MED LIST changes: +ISOVUE-M 300 61% 15ML VIAL (Q9967) As Ordered ONE; +LIDOCAINE 1% SDV INJ 30 ML VIAL As Ordered ONE; +diazePAM 5 MG TAB As Ordered ONE; +diphenhydrAMINE 25 MG CAP As Ordered ONE; +methylPREDNISolone SUSP 40 MG/ML (DEPO-medrol) VIAL (J1030) As Ordered ONE; +oxyCODONE 5MG TAB As Ordered ONE
--- NOTE | 2017-09-22 09:22 | REP ---
LUMBAR EPIDURAL STEROID INJECTION: All imaging was reviewed with Dr. Zuniga prior to dictation. The portable C-arm is provided in the OR for Dr. Crowley for fluoroscopic guidance. Three intraoperative fluoroscopic spot films were obtained using last image hold technology for needle placement verification for this lumbar epidural steroid injection. The films are on the PACS system and are available for review. 9 seconds of fluoroscopy time were utilized for this procedure. Reviewed by NIKOLAY Amin 09/22/2017 12:47 PEdited and Signed by Zurdo Zuniga MD 09/22/2017 07:19 P
--- NOTE | 2017-10-09 23:59 | ECWPNPC ---
PATIENT NAME: EDOUARD ALCALA : 1985 GENDER: FEMALE VISIT DATE: 09/21/2017 DISCHARGE DATE: 09/21/17 1338 VISIT LOCKED DATE TIME: PHYSICIAN: PATY HANCOCK RESOURCE: PATY HANCOCK REASON FOR APPOINTMENT 1. LESI HISTORY OF PRESENT ILLNESS HISTORY OF PRESENT ILLNESS: PAIN THE PATIENT DESCRIBES THE PAIN... FALL RISK SCREENING: SCREENING :NO FALLS IN THE PAST YEAR CURRENT MEDICATIONS TAKING PROTONIX 40 MG TABLET DELAYED RELEASE 1 TABLET ORALLY ONCE A DAY, NOTES: 09/20/17 TAKING TYLENOL 325 MG TABLET 2 TABLETS NEEDED ORALLY EVERY 6 HRS, NOTES: 09/20/17 TAKING TIZANIDINE HCL 4 MG TABLET 1 ORALLY BEFORE BEDTIME MAY REPEAT IN 4HRS MDD2, NOTES: 09/20/17 TAKING HYDROXYZINE HCL 50 MG TABLET 1 TABLET NEEDED ORALLY TID, NOTES: 09/20/17 TAKING CLONAZEPAM 1 MG TABLET 1 TABLET ORALLY DAILY PRN, NOTES: 09/20/17 TAKING DESVENLAFAXINE SUCCINATE ER 25 MG TABLET EXTENDED RELEASE 24 HOUR 2 TABLETS ORALLY ONCE A DAY, NOTES: 09/02/17 TAKING VITAMIN D (ERGOCALCIFEROL) 04064 UNIT CAPSULE 1 CAPSULE ORALLY , NOTES: 09/02/17 TAKING CLONIDINE HCL 0.1 MG TABLET 1 TABLET AT BEDTIME ORALLY TID PRN, NOTES: 09/02/17 TAKING CITALOPRAM HYDROBROMIDE 20 MG TABLET 1 TABLET ORALLY ONCE A DAY, NOTES: 09/02/17 TAKING PRAZOSIN HCL 1 MG CAPSULE 1-2 CAPSULE AT BEDTIME ORALLY ONCE A DAY PRN, NOTES: 09/02/17 TAKING FLUCONAZOLE 150 MG TABLET 1 TABLET ORALLY WEEKLY, NOTES: 09/02/17 NOT-TAKING TRAMADOL HCL 50 MG TABLET 1 TAB ORALLY EVERY 6 HRS PRN MDD4 NOT-TAKING FLUOXETINE 20 MG CAPSULE 3 CAPSULE IN THE MORNING ORALLY ONCE A DAY NOT-TAKING VITAMIN D 2000 UNIT CAPSULE 1 CAPSULE ORALLY ONCE A DAY MEDICATION LIST REVIEWED AND RECONCILED WITH THE PATIENT PAST MEDICAL HISTORY MILD DISPLASIA ULCER BUSITIS CARPAL TUNNEL ARTHRITIS PTSD MIGRAINES SCOLIOSIS FATTY LIVER DISEASE ALLERGIES CONTRAST: HIVES: SIDE EFFECTS YLENOL WITH CODEINE: RASH: SIDE EFFECTS PENICILLIN (FOR ALLERGIES USE ONLY) SURGICAL HISTORY DENIES PAST SURGICAL HISTORY SOCIAL HISTORY GENERAL: TOBACCO USE ARE YOU A:NONSMOKER LEARNING BARRIERS / SPECIAL NEEDS ORIENTED TO PLAN OF CARE: PATIENT, PAIN MANAGEMENT PATIENT, ORIENTED TO PLAN OF CARE: PATIENT, PAIN MANAGEMENT PATIENT. NEW PATIENT PAIN DIARY TODAY'S VISITNOTES FROM 0-10, WHAT LEVEL IS YOUR PAIN TODAY?0 PAIN CLINIC PFS, CLERGY, PUBLIC HEALTH REFERRALS PFS REFERRAL NEEDED?NO CLERGY REFERRAL NEEDED?NO PUBLIC HEALTH REFERRAL NEEDED?NO WAS THE PROVIDER NOTIFIED OF ANY PERTINENT INFO?NO HAS THE PATIENT BEEN EDUCATED REGARDING HIS/HER PLAN OF CARE?YES HAS THE PATIENT BEEN EDUCATED REGARDING PAIN, THE RISK FOR PAIN, THE IMPORTANCE OF EFFECTIVE PAIN MANAGEMENT, AND THE PAIN ASSESSMENT PROCESS?YES HOSPITALIZATION/MAJOR DIAGNOSTIC PROCEDURE CHILDBIRTH REVIEW OF SYSTEMS REVIEWED BY: PROVIDER: . CONSTITUTIONAL: ANY CHANGE IN YOUR MEDICAL CONDITION? NO . CHILLS NO . FEVER NO . INFECTION: DO YOU HAVE NEW INFECTIONS? NO . DO YOU HAVE HISTORY OF MRSA? NO . MUSCULOSKELETAL: ANY NEW PATTERNS OF PAIN OR NUMBNESS? NO . GASTROENTEROLOGY: ANY NEW CHANGE IN BOWEL CONTROL? NO . GENITOURINARY: ANY NEW CHANGE IN BLADDER CONTROL? NO . IS THERE A CHANCE YOU COULD BE ? NO . HEMATOLOGY/LYMPH: DO YOU TAKE ANY BLOOD THINNERS? (FOR EXAMPLE- COUMADIN, PLAVIX, AGGRENOX, PLATEL, PRADAXA, OR XARELTO) NO . WHEN WAS YOUR LAST DOSE? DATE: TIME: . NEUROLOGY: HAVE YOU FALLEN IN THE PAST 6 MONTHS? YES, PT STATES SHE FALLS FREQUENTLY FOR BILAT KNEE WEAKNESS AND GIVES OUT. PT DENIES INJURIES REQUIRING [place] . ANY NEW EXTREMITY NUMBNESS OR WEAKNESS? NO . CARDIOLOGY: DO YOU HAVE A PACEMAKER OR DEFIBRILLATOR? NO . RESPIRATORY: HAVE YOU BEEN SICK IN THE PAST WEEK? NO . FEVER NO . FLU LIKE SYMPTOMS? NO . COUGH NO . INTEGUMENTARY: DO YOU HAVE ANY RASHES OR OPEN SORES? NO . ALLERGIC/IMMUNO: ARE YOU ALLERGIC TO SHELLFISH OR IV DYE? YES, IV DYE . ANY NEW ALLERGIES? NO . PSYCHIATRIC: DO YOU HAVE THOUGHTS OF HURTING YOURSELF OR SOMEONE ELSE? NO . ARE YOU ABUSED, NEGLECTED, OR IN AN UNSAFE ENVIRONMENT? NO . ENDOCRINOLOGY: ARE YOU DIABETIC? NO . OTHER: DO YOU NEED ANY PRESCRIPTIONS? YES, PAIN MEDS, PT INFORMED TO ASK FOR REFILLS AT F/U WITH KARISSA . IF YES, PLEASE LIST: ____ . ANY NEW PROBLEMS WITH YOUR MEDICATIONS? NO . WHEN DID YOU LAST EAT? 09/20/17 . WHEN DID YOU LAST DRINK? 09/21/17 0000 . WHAT DID YOU LAST DRINK? WATER . NAME OF PERSON DRIVING YOU HOME? TEE KINJALLily . DO YOU HAVE ANY OTHER QUESTIONS OR CONCERNS NO, PT DENIES GETTING FLU VACCINE THIS SEASON, NOR DOES SHE PLAN TO . VITAL SIGNS WT 228.4 LBS, HT 66 IN, BMI 36.86 INDEX, BP 126/69 MM HG, HR 77 /MIN, RR 16 /MIN, TEMP 97.5 F, OXYGEN SAT % 98%, NA INITIALS TL 1041. ASSESSMENTS INTERVERTEBRAL DISC DISORDER WITH RADICULOPATHY OF LUMBAR REGION - M51.16 (PRIMARY) PROCEDURES PRE PROCEDURE DIAGNOSIS LUMBAR DISC DISORDER WITH RADICULOPATHY POST PROCEDURE DIAGNOSIS LUMBAR DISC DISORDER WITH RADICULOPATHY PROCEDURE LUMBAR EPIDURAL STEROID INJECTION UNDER FLUOROSCOPIC GUIDANCE SURGEON DR. PATY HANCOCK COPPERSMITH APPRENTICE NONE ANESTHESIA LOCAL PRE PROCEDURE NOTE THE PATIENT HAS A HISTORY OF CHRONIC LOW BACK PAIN. I EVALUATE THE PATIENT AND REVIEWED THE CHART. I WENT OVER THE RISKS, ALTERNATIVES, AND BENEFITS ASSOCIATED WITH THIS PROCEDURE. THE PATIENT WOULD LIKE TO PROCEED AND GIVE CONSENT TO PERFORMED THE PROCEDURE. THE PATIENT DENIES UNEXPLAINABLE WEIGHT LOSS, FEVER, CHILLS, OR NEW CHANGES IN URINARY OR BOWEL CONTROL. DESCRIPTION OF PROCEDURE THE PATIENT WAS BROUGHT TO THE PROCEDURE ROOM AND PLACED IN THE PRONE POSITION. THE LUMBOSACRAL AREA WAS CLEANED WITH BETADINE SOLUTION AND DRAPED ASEPTICALLY. THE PROCEDURE WAS DONE UNDER STERILE CONDITIONS. I CHECKED LATERALITY AND THE LEVEL WHERE THE PROCEDURE WAS GOING TO BE PERFORMED WITH THE PATIENT AND THE SUPPORTING STAFF AT THE MOMENT OF THE TIME OUT IN THE PROCEDURE ROOM. UNDER FLUOROSCOPIC GUIDANCE, THE TARGET POINT WAS SELECTED AT THE INTERLAMINAR LEVEL OF L4-L5. LIDOCAINE WAS USED TO NUMB THE SKIN AND THE SUBCUTANEOUS TISSUE BELOW IT. EPIDURAL TUOHY NEEDLE, 17-GAUGE, WAS ADVANCED UNDER FLUOROSCOPIC GUIDANCE AND FOLLOWING PATIENT FEEDBACK UNTIL THE EPIDURAL SPACE WAS REACHED, 7 CM DEEP INTO THE SKIN BY THE LOSS OF RESISTANCE TECHNIQUE. ISOVUE M DYE 30%, 0.25 ML, WAS INJECTED SHOWING ADEQUATE SPREAD OF THE DYE. THEN, A SOLUTION OF 3 ML OF NORMAL SALINE WITH DEPO-MEDROL 60 MG WAS INJECTED SLOWLY FOLLOWING PATIENT FEEDBACK. THERE WAS NO EVIDENCE OF BLOOD, PARESTHESIA OR CEREBROSPINAL FLUID DURING THE PROCEDURE. THE PATIENT WAS SENT TO THE RECOVERY ROOM. THE PATIENT WAS MOVING THE EXTREMITIES AND DOING WELL. THERE WAS NO COMPLICATION DURING THE PROCEDURE. FLUOROSCOPY TIME WAS 9 SECONDS. POST PROCEDURE NOTE THE PATIENT WILL BE SEEN IN A FOLLOW UP IN THE NEXT FEW WEEKS. INSTRUCTIONS WERE GIVEN, QUESTIONS WERE ANSWERED, AND THE PATIENT EXPRESSED UNDERSTANDING AND AGREES WITH THE PLAN. I, NORMA SAVAGE, DOCUMENTED THE ABOVE INFORMATION ACTING A SCRIBE FOR DR. HANCOCK. I HAVE REVIEWED THE ABOVE DOCUMENT, WRITTEN BY NORMA QUIROZIBGregory AND I VERIFY THAT IT IS ACCURATE DIAGNOSTIC IMAGING [facility] FLUORO GUIDE SPINE INJECTION (PAIN)[id number] PROCEDURE CODES 00532 LUMBAR/SACRAL W/ IMAGING 6045F RADXPS IN END [id number] PXD DISPOSITION & COMMUNICATION FOLLOW UP 2 WEEKS ELECTRONICALLY SIGNED BY PATY HANCOCK MD ON 10/09/2017 AT 08:52 PM EST DISCLAIMER : THIS IS A VISIT SUMMARY EXTRACTED FROM THE [employer] CHART. IT IS NOT A COPY OF THE [employer] PROGRESS NOTE. MTDSrinivasan
== END ==
LOC: M PAIN 10:45
PROVIDERS: ATTEND Anesthesiology
DX: G89.29 Other chronic pain (principal); M51.16 Intervertebral disc disorders with radiculopathy, lumbar region; F43.10 Post-traumatic stress disorder, unspecified; G43.909 Migraine, unspecified, not intractable, without status migrainosus; Z91.041 Radiographic dye allergy status; Z88.5 Allergy status to narcotic agent; Z88.0 Allergy status to penicillin; Z79.899 Other long term (current) drug therapy; Z91.81 History of falling
CPT/HCPCS: 62323; J1030; Q9967

== ENCOUNTER → 2017-10-07 | Outpatient (CLI) | payer OTHER, MEDICAID ==
[~2017-10-07] MED LIST changes: -ISOVUE-M 300 61% 15ML VIAL (Q9967) As Ordered ONE; -LIDOCAINE 1% SDV INJ 30 ML VIAL As Ordered ONE; -diazePAM 5 MG TAB As Ordered ONE; -diphenhydrAMINE 25 MG CAP As Ordered ONE; -methylPREDNISolone SUSP 40 MG/ML (DEPO-medrol) VIAL (J1030) As Ordered ONE; -oxyCODONE 5MG TAB As Ordered ONE
--- NOTE | 2017-10-25 01:33 | ECWPNPC ---
PATIENT NAME: EDOUARD ALCALA : 1985 GENDER: FEMALE VISIT DATE: 10/07/2017 DISCHARGE DATE: 10/07/17 1549 VISIT LOCKED DATE TIME: PHYSICIAN: PATY HANCOCK RESOURCE: PATY HANCOCK REASON FOR APPOINTMENT 1. BACK PAIN HISTORY OF PRESENT ILLNESS HISTORY OF PRESENT ILLNESS: PAIN THE PATIENT DESCRIBES THE PAIN... 32 YEAR OLD FEMALE PATIENT HISTORY OF CHRONIC BACK PAIN. PATIENT DESCRIBES THE PAIN ACHING, SHARP, STABBING, TENDER, THROBBING, SORE, SHOOTING, AND HAVING IT ALL THE TIME WITH A PAIN SCORE OF 10/10 ON TODAY'S VISIT. PATIENT RECEIVED A LUMBAR EPIDURAL ON 09/21/17 AND REPORTS THAT SHE HAD TO MISS A WEEK OF WORK DUE TO THE PAIN BEING SO SEVERE. PATIENT STATES THAT HER PAIN NOW RADIATES FROM HER LOW BACK UP TO HER NECK AREA. PATIENT REPORTS THAT SHE CAN NOT TAKE IBUPROFEN DUE TO STOMACH ULCERS BUT DOES USE TYLENOL TO AID IN PAIN RELIEF ALONG WITH TRAMADOL AND TIZANIDINE. PATIENT DENIES UNEXPLAINABLE WEIGHT LOSS, FEVER, CHILLS, NEW CHANGES ON HER URINARY OR BOWEL CONTROL. FALL RISK SCREENING: SCREENING :NO FALLS IN THE PAST YEAR CURRENT MEDICATIONS TAKING PROTONIX 40 MG TABLET DELAYED RELEASE 1 TABLET ORALLY ONCE A DAY TAKING TYLENOL 325 MG TABLET 2 TABLETS NEEDED ORALLY EVERY 6 HRS TAKING TIZANIDINE HCL 4 MG TABLET 1 ORALLY BEFORE BEDTIME MAY REPEAT IN 4HRS MDD2, NOTES: 09/20/17 TAKING HYDROXYZINE HCL 50 MG TABLET 1 TABLET NEEDED ORALLY TID TAKING CLONAZEPAM 1 MG TABLET 1 TABLET ORALLY DAILY PRN TAKING DESVENLAFAXINE SUCCINATE ER 25 MG TABLET EXTENDED RELEASE 24 HOUR 2 TABLETS ORALLY ONCE A DAY TAKING VITAMIN D (ERGOCALCIFEROL) 50888 UNIT CAPSULE 1 CAPSULE ORALLY TAKING CLONIDINE HCL 0.1 MG TABLET 1 TABLET AT BEDTIME ORALLY TID PRN TAKING CITALOPRAM HYDROBROMIDE 20 MG TABLET 1 TABLET ORALLY ONCE A DAY TAKING PRAZOSIN HCL 1 MG CAPSULE 1-2 CAPSULE AT BEDTIME ORALLY ONCE A DAY PRN, NOTES: 09/02/17 UNKNOWN FLUCONAZOLE 150 MG TABLET 1 TABLET ORALLY WEEKLY, NOTES: 09/02/17 UNKNOWN TRAMADOL HCL 50 MG TABLET 1 TAB ORALLY EVERY 6 HRS PRN MDD4 UNKNOWN FLUOXETINE 20 MG CAPSULE 3 CAPSULE IN THE MORNING ORALLY ONCE A DAY UNKNOWN VITAMIN D 2000 UNIT CAPSULE 1 CAPSULE ORALLY ONCE A DAY MEDICATION LIST REVIEWED AND RECONCILED WITH THE PATIENT PAST MEDICAL HISTORY MILD DISPLASIA ULCER BUSITIS CARPAL TUNNEL ARTHRITIS PTSD MIGRAINES SCOLIOSIS FATTY LIVER DISEASE ALLERGIES CONTRAST: HIVES: SIDE EFFECTS YLENOL WITH CODEINE: RASH: SIDE EFFECTS PENICILLIN (FOR ALLERGIES USE ONLY) REVIEW OF SYSTEMS REVIEWED BY: PROVIDER: PATY HANCOCK MD . CONSTITUTIONAL: ANY CHANGE IN YOUR MEDICAL CONDITION? NO . CHILLS NO . FEVER NO . INFECTION: DO YOU HAVE NEW INFECTIONS? NO . DO YOU HAVE HISTORY OF MRSA? NO . MUSCULOSKELETAL: ANY NEW PATTERNS OF PAIN OR NUMBNESS? YES PATIENT HAS INCREASED AND NEW PAIN SHOOTING UP HER BACK AND INTO HER NECK . GASTROENTEROLOGY: ANY NEW CHANGE IN BOWEL CONTROL? NO . GENITOURINARY: ANY NEW CHANGE IN BLADDER CONTROL? NO . IS THERE A CHANCE YOU COULD BE ? NO . HEMATOLOGY/LYMPH: DO YOU TAKE ANY BLOOD THINNERS? (FOR EXAMPLE- COUMADIN, PLAVIX, AGGRENOX, PLATEL, PRADAXA, OR XARELTO) NO . WHEN WAS YOUR LAST DOSE? DATE: TIME: . NEUROLOGY: HAVE YOU FALLEN IN THE PAST 6 MONTHS? NO . ANY NEW EXTREMITY NUMBNESS OR WEAKNESS? NO . CARDIOLOGY: DO YOU HAVE A PACEMAKER OR DEFIBRILLATOR? NO . RESPIRATORY: HAVE YOU BEEN SICK IN THE PAST WEEK? NO . FEVER NO . FLU LIKE SYMPTOMS? NO . COUGH NO . INTEGUMENTARY: DO YOU HAVE ANY RASHES OR OPEN SORES? NO . ALLERGIC/IMMUNO: ARE YOU ALLERGIC TO SHELLFISH OR IV DYE? NO . ANY NEW ALLERGIES? NO . PSYCHIATRIC: DO YOU HAVE THOUGHTS OF HURTING YOURSELF OR SOMEONE ELSE? NO . ARE YOU ABUSED, NEGLECTED, OR IN AN UNSAFE ENVIRONMENT? NO . ENDOCRINOLOGY: ARE YOU DIABETIC? NO . OTHER: DO YOU NEED ANY PRESCRIPTIONS? NO . IF YES, PLEASE LIST: ____ . ANY NEW PROBLEMS WITH YOUR MEDICATIONS? NO . WHEN DID YOU LAST EAT? ____ . WHEN DID YOU LAST DRINK? ____ . WHAT DID YOU LAST DRINK? ____ . NAME OF PERSON DRIVING YOU HOME? ____ . DO YOU HAVE ANY OTHER QUESTIONS OR CONCERNS NO . VITAL SIGNS WT 234.6 LBS, HT 66 IN, BMI 37.86 INDEX, BP 146/77 MM HG, HR 90 /MIN, RR 16 /MIN, TEMP 98.5 F, OXYGEN SAT % 99%, NA INITIALS TL 1455. EXAMINATION : PATIENT IS ALERT O X 3 AND COOPERATIVE. THERE IS TENDERNESS IN THE SACROCOCCYGEAL LIGAMENT. MRI OF THE LUMBAR SPINE DONE ON 02/26/2015 SHOWS DISC BULGE AT L4-L5 AND FACET HYPERTROPHY. ASSESSMENTS INTERVERTEBRAL DISC DISORDER WITH RADICULOPATHY OF LUMBAR REGION - M51.16 (PRIMARY) SPINAL ENTHESOPATHY, SACRAL AND SACROCOCCYGEAL REGION - M46.08 TREATMENT INTERVERTEBRAL DISC DISORDER WITH RADICULOPATHY OF LUMBAR REGION NOTES: WE DISCUSSED SEVERAL ISSUES WITH MRS. ALCALA' PAIN MANAGEMENT CASE. AT THIS TIME THE PATIENT WILL START USING HYDROCODONE FOR THE SOMATIC PAIN SHE IS HAVING. PATIENT DENIES ABUSE OF ANY MEDICATION, DENIES USE OF ILLEGAL SUBSTACNES, AND STATES THAT SHE IS ONLY USING THE MEDICATION FOR PAIN MANAGEMENT. PATIENT WILL PERFORM A URINE TOXICOLOGY TODAY AND SIGN A NARCOTIC AGREEMENT. I WOULD LIKE TO SPEAK WITH THE PATIENT'S PRIMARY CARE DOCTOR ABOUT THE USE OF HYDROCODONE WITH HER OTHER MEDICATIONS. PATIENT DOES NOT WANT TO MOVE FORWARD WITH ANY INTERVENTIONS AT THIS TIME DUE TO THE SEVERE PAIN SHE WAS IN FROM THE LUMBAR EPIDURAL. PATIENT WILL RETURN TO THE CLINIC IN 1 WEEK. INSTRUCTIONS WERE GIVEN, QUESTIONS WERE ANSWERED, PATIENT REPORTS UNDERSTANDING AND AGREES WITH THE PLAN. I, NORMA SAVAGE, DOCUMENTED THE ABOVE INFORMATION ACTING A SCRIBE FOR DR. HANCOCK. I HAVE REVIEWED THE ABOVE DOCUMENT, WRITTEN BY NORMA MANDEL AND I VERIFY THAT IT IS ACCURATE. OTHERS START HYDROCODONE-ACETAMINOPHEN TABLET, 5-325 MG, 1 TABLET NEEDED, ORALLY, EVERY DAY NEEDED FOR PAIN MDD1, 14 DAY(S), 14, REFILLS 0 PROCEDURE CODES FA211 ESTABILISHED PATIENT [facility] FACILITY CHARGE G8427 DOC MEDS VERIFIED W/PT OR RE G8730 PAIN ASSESS POS TOOL F/U PLAN DOC DISPOSITION & COMMUNICATION FOLLOW UP 3 WEEKS ELECTRONICALLY SIGNED BY PATY HANCOCK MD ON 10/24/2017 AT 06:23 PM EST DISCLAIMER : THIS IS A VISIT SUMMARY EXTRACTED FROM THE [employer] CHART. IT IS NOT A COPY OF THE [employer] PROGRESS NOTE. [facility]
== END ==
LOC: M PAIN 15:45
PROVIDERS: ATTEND Anesthesiology
DX: M51.16 Intervertebral disc disorders with radiculopathy, lumbar region (principal); M46.08 Spinal enthesopathy, sacral and sacrococcygeal region; G89.29 Other chronic pain; Z79.899 Other long term (current) drug therapy; Z91.041 Radiographic dye allergy status; Z88.8 Allergy status to other drugs, medicaments and biological substances; Z88.0 Allergy status to penicillin

== ENCOUNTER → 2017-10-25 | Outpatient (CLI) | payer OTHER, MEDICAID ==
--- NOTE | 2017-11-04 00:39 | ECWPNPC ---
PATIENT NAME: EDOUARD ALCALA : 1985 GENDER: FEMALE VISIT DATE: 10/25/2017 DISCHARGE DATE: 10/25/171716 VISIT LOCKED DATE TIME: PHYSICIAN: PATY HANCOCK RESOURCE: PATY HANCOCK REASON FOR APPOINTMENT 1. LOW BACK PAIN HISTORY OF PRESENT ILLNESS HISTORY OF PRESENT ILLNESS: PAIN THE PATIENT DESCRIBES THE PAIN... 32 YEAR OLD FEMALE PATIENT HISTORY OF CHRONIC BACK PAIN. PATIENT DESCRIBES THE PAIN ACHING, SHARP, STABBING, TENDER, THROBBING, SORE, SHOOTING, AND HAVING IT ALL THE TIME WITH A PAIN SCORE OF 8.5/10 ON TODAY'S VISIT. PATIENT RECEIVED A LUMBAR EPIDURAL ON 09/21/17 AND REPORTS THAT SHE HAD TO MISS A WEEK OF WORK DUE TO THE PAIN BEING SO SEVERE. PATIENT REPORTS THAT SHE CAN NOT TAKE IBUPROFEN DUE TO STOMACH ULCERS BUT DOES USE TYLENOL TO AID IN PAIN RELIEF ALONG WITH TRAMADOL AND TIZANIDINE. PATIENT DENIES UNEXPLAINABLE WEIGHT LOSS, FEVER, CHILLS, NEW CHANGES ON HER URINARY OR BOWEL CONTROL. FALL RISK SCREENING: SCREENING :NO FALLS IN THE PAST YEAR CURRENT MEDICATIONS TAKING PROTONIX 40 MG TABLET DELAYED RELEASE 1 TABLET ORALLY ONCE A DAY TAKING TYLENOL 325 MG TABLET 2 TABLETS NEEDED ORALLY EVERY 6 HRS TAKING TIZANIDINE HCL 4 MG TABLET 1 ORALLY BEFORE BEDTIME MAY REPEAT IN 4HRS MDD2, NOTES: 09/20/17 TAKING HYDROXYZINE HCL 50 MG TABLET 1 TABLET NEEDED ORALLY TID TAKING CLONAZEPAM 1 MG TABLET 1 TABLET ORALLY DAILY PRN TAKING DESVENLAFAXINE SUCCINATE ER 25 MG TABLET EXTENDED RELEASE 24 HOUR 2 TABLETS ORALLY ONCE A DAY TAKING VITAMIN D (ERGOCALCIFEROL) 28950 UNIT CAPSULE 1 CAPSULE ORALLY TAKING CLONIDINE HCL 0.1 MG TABLET 1 TABLET AT BEDTIME ORALLY TID PRN TAKING CITALOPRAM HYDROBROMIDE 20 MG TABLET 1 TABLET ORALLY ONCE A DAY TAKING PRAZOSIN HCL 1 MG CAPSULE 1-2 CAPSULE AT BEDTIME ORALLY ONCE A DAY PRN, NOTES: 09/02/17 TAKING HYDROCODONE-ACETAMINOPHEN 5-325 MG TABLET 1 TABLET NEEDED ORALLY EVERY DAY NEEDED FOR PAIN MDD1 NOT-TAKING FLUCONAZOLE 150 MG TABLET 1 TABLET ORALLY WEEKLY, NOTES: 09/02/17 NOT-TAKING TRAMADOL HCL 50 MG TABLET 1 TAB ORALLY EVERY 6 HRS PRN MDD4 NOT-TAKING FLUOXETINE 20 MG CAPSULE 3 CAPSULE IN THE MORNING ORALLY ONCE A DAY NOT-TAKING VITAMIN D 2000 UNIT CAPSULE 1 CAPSULE ORALLY ONCE A DAY MEDICATION LIST REVIEWED AND RECONCILED WITH THE PATIENT PAST MEDICAL HISTORY MILD DISPLASIA ULCER BUSITIS CARPAL TUNNEL ARTHRITIS PTSD MIGRAINES SCOLIOSIS FATTY LIVER DISEASE ALLERGIES CONTRAST: HIVES: SIDE EFFECTS YLENOL WITH CODEINE: RASH: SIDE EFFECTS PENICILLIN (FOR ALLERGIES USE ONLY): HIVES: ALLERGY SOCIAL HISTORY GENERAL: TOBACCO USE ARE YOU A:NONSMOKER LANGUAGE LANGUAGES SPOKEN:NAMIBIAN LEARNING BARRIERS / SPECIAL NEEDS BARRIERS TO LEARNING?NO HEARING IMPAIRED?NO VISION IMPAIRED?NO COGNITIVELY IMPAIRED?NO READINESS TO LEARN?YES LEARNING PREFERENCES?NO LEARNING CAPABILITIES PRESENT?YES EMOTIONAL BARRIERS?NO SPECIAL DEVICES?NO AUTOMOBILE TRAVEL CLUB COUNSELOR NEEDED?NO NEW PATIENT PAIN DIARY TODAY'S VISITNOTES FROM 0-10, WHAT LEVEL IS YOUR PAIN TODAY?0 PAIN CLINIC PFS, CLERGY, PUBLIC HEALTH REFERRALS PFS REFERRAL NEEDED?NO CLERGY REFERRAL NEEDED?NO PUBLIC HEALTH REFERRAL NEEDED?NO WAS THE PROVIDER NOTIFIED OF ANY PERTINENT INFO?NO HAS THE PATIENT BEEN EDUCATED REGARDING HIS/HER PLAN OF CARE?YES HAS THE PATIENT BEEN EDUCATED REGARDING PAIN, THE RISK FOR PAIN, THE IMPORTANCE OF EFFECTIVE PAIN MANAGEMENT, AND THE PAIN ASSESSMENT PROCESS?YES REVIEWED BY: CHILANGO 10/25/17. [facility] DIRECTIVES HEALTH CARE PROXY?YES NAME OF HCP JOHAN ALFARO CONTACT # FOR HCP [phone] DO YOU HAVE A COPY WITH YOU?NO DO YOU HAVE A DNR?NO WOULD YOU LIKE MORE INFORMATION?NO LIVING WILL?NO WOULD YOU LIKE MORE INFORMATION?NO POWER OF MOUNTING MACHINE OPERATOR?NO WOULD YOU LIKE MORE INFORMATION?NO REVIEW OF SYSTEMS REVIEWED BY: PROVIDER: PATY HANCOCK MD . CONSTITUTIONAL: ANY CHANGE IN YOUR MEDICAL CONDITION? NO . CHILLS NO . FEVER NO . INFECTION: DO YOU HAVE NEW INFECTIONS? NO . DO YOU HAVE HISTORY OF MRSA? NO . MUSCULOSKELETAL: ANY NEW PATTERNS OF PAIN OR NUMBNESS? NO . GASTROENTEROLOGY: ANY NEW CHANGE IN BOWEL CONTROL? NO . GENITOURINARY: ANY NEW CHANGE IN BLADDER CONTROL? NO . IS THERE A CHANCE YOU COULD BE ? NO . HEMATOLOGY/LYMPH: DO YOU TAKE ANY BLOOD THINNERS? (FOR EXAMPLE- COUMADIN, PLAVIX, AGGRENOX, PLATEL, PRADAXA, OR XARELTO) NO . WHEN WAS YOUR LAST DOSE? DATE: TIME: . NEUROLOGY: HAVE YOU FALLEN IN THE PAST 6 MONTHS? YES PT REPORTS HER LEFT LEG GIVES OUT BECAUSE OF HER KNEES, AND SHE STUMBLES. DENIES ANY INJURIES, NO ED VISITS. . ANY NEW EXTREMITY NUMBNESS OR WEAKNESS? NO . CARDIOLOGY: DO YOU HAVE A PACEMAKER OR DEFIBRILLATOR? NO . RESPIRATORY: HAVE YOU BEEN SICK IN THE PAST WEEK? NO . FEVER NO . FLU LIKE SYMPTOMS? NO . COUGH NO . INTEGUMENTARY: DO YOU HAVE ANY RASHES OR OPEN SORES? NO . ALLERGIC/IMMUNO: ARE YOU ALLERGIC TO SHELLFISH OR IV DYE? YES . ANY NEW ALLERGIES? NO . PSYCHIATRIC: DO YOU HAVE THOUGHTS OF HURTING YOURSELF OR SOMEONE ELSE? NO . ARE YOU ABUSED, NEGLECTED, OR IN AN UNSAFE ENVIRONMENT? NO . ENDOCRINOLOGY: ARE YOU DIABETIC? NO . OTHER: DO YOU NEED ANY PRESCRIPTIONS? YES . IF YES, PLEASE LIST: ____HYDROCODONE/ACETAMINOPHEN . ANY NEW PROBLEMS WITH YOUR MEDICATIONS? NO . WHEN DID YOU LAST EAT? ____ . WHEN DID YOU LAST DRINK? ____ . WHAT DID YOU LAST DRINK? ____ . NAME OF PERSON DRIVING YOU HOME? ____ . DO YOU HAVE ANY OTHER QUESTIONS OR CONCERNS NO . VITAL SIGNS WT 231.6 LBS, HT 66 IN, BMI 37.38 INDEX, BP 145/98 MM HG, HR 93 /MIN, RR 18 /MIN, TEMP 97.5 F, OXYGEN SAT % 97%, SAFE IN ENV? (Y/N) YES, NA INITIALS SC 15:37, REVIEWED BY: CHILANGO. EXAMINATION : PATIENT IS ALERT O X 3 AND COOPERATIVE. THERE IS TENDERNESS IN THE PARASPINAL MUSCLE GROUP. MRI OF THE LUMBAR SPINE DONE ON 02/26/2015 SHOWS DISC BULGE AT L4-L5 AND FACET HYPERTROPHY. ASSESSMENTS MYALGIA - M79.1 (PRIMARY) SACROCOCCYGEAL DISORDERS, NOT ELSEWHERE CLASSIFIED - M53.3 INTERVERTEBRAL DISC DISORDERS WITH RADICULOPATHY, LUMBAR REGION - M51.16 TREATMENT OTHERS REFILL HYDROCODONE-ACETAMINOPHEN TABLET, 5-325 MG, 1 TABLET NEEDED, ORALLY, EVERY DAY NEEDED FOR PAIN MDD1, 30 DAY(S), 30, REFILLS 0 CLINICAL NOTES: WE DISCUSSED SEVERAL ISSUES WITH MRS. ALCALA' PAIN MANAGEMENT CASE. AT THIS TIME THE PATIENT WILL START USING HYDROCODONE FOR THE SOMATIC PAIN SHE IS HAVING. PATIENT DENIES ABUSE OF ANY MEDICATION, DENIES USE OF ILLEGAL SUBSTANCES, AND STATES THAT SHE IS ONLY USING THE MEDICATION FOR PAIN MANAGEMENT. PATIENT PERFORMED A URINE TOXICOLOGY TODAY. PATIENT BROUGHT HER MEDICATION TO THE APPOINTMENT TODAY AND STATES THAT SHE IS TRYING TO MANAGE HER SITUATION AND IS NOT ABUSING OR SELLING HER MEDICATION. I WOULD LIKE TO SPEAK WITH THE PATIENT'S PRIMARY CARE DOCTOR ABOUT THE USE OF HYDROCODONE WITH HER OTHER MEDICATIONS. PATIENT DOES NOT WANT TO MOVE FORWARD WITH ANY INTERVENTIONS AT THIS TIME DUE TO THE SEVERE PAIN SHE WAS IN FROM THE LUMBAR EPIDURAL. PATIENT WILL RETURN TO THE CLINIC IN 3 WEEKS. I WAS IN THE ROOM TODAY WITH THE PATIENT OVER 25 MINUTES. MORE THAN HALF OF THE TIME WAS DISCUSSING THE CASE WITH HER, DISCUSSING THE RISK OF OPIOIDS, GETTING CLARIFICATIONS OF THE PLAN. INSTRUCTIONS WERE GIVEN, QUESTIONS WERE ANSWERED, PATIENT REPORTS UNDERSTANDING AND AGREES WITH THE PLAN. I, TOAN ELIAS, DOCUMENTED THE ABOVE INFORMATION ACTING A SCRIBE FOR DR. HANCOCK. I HAVE REVIEWED THE ABOVE DOCUMENT, WRITTEN BY TOAN QUIROZIBGregory AND I VERIFY THAT IT IS ACCURATE. PROCEDURE CODES FA211 ESTABILISHED PATIENT [facility] CHARGE G8730 PAIN ASSESS POS TOOL F/U PLAN DOC G8427 DOC MEDS VERIFIED W/PT OR RE DISPOSITION & COMMUNICATION FOLLOW UP 3 WEEKS ELECTRONICALLY SIGNED BY DAX SMITH ON 11/03/2017 AT 09:27 AM EST DISCLAIMER : THIS IS A VISIT SUMMARY EXTRACTED FROM THE [employer] CHART. IT IS NOT A COPY OF THE [employer] PROGRESS NOTE. LIZBETH
== END ==
LOC: M PAIN 15:30
PROVIDERS: ATTEND Anesthesiology
DX: G89.29 Other chronic pain (principal); M79.1 Myalgia; M53.3 Sacrococcygeal disorders, not elsewhere classified; M51.16 Intervertebral disc disorders with radiculopathy, lumbar region; F43.10 Post-traumatic stress disorder, unspecified; G43.909 Migraine, unspecified, not intractable, without status migrainosus; M41.9 Scoliosis, unspecified; K76.0 Fatty (change of) liver, not elsewhere classified; Z79.891 Long term (current) use of opiate analgesic; Z79.899 Other long term (current) drug therapy; Z88.0 Allergy status to penicillin; Z91.041 Radiographic dye allergy status; Z88.8 Allergy status to other drugs, medicaments and biological substances

== ENCOUNTER → 2017-11-09 | Outpatient (REF) ==
--- NOTE | 2017-11-09 18:17 | REP ---
Clinical: Pain and disability . Technique: AP, lateral, and coned-down views. Findings: Alignment and lordosis is maintained. The vertebral bodies including transverse process and spinous processes are intact and normal. There is no evidence for acute fracture / compression injury or subluxation. No significant degenerative change is noted. Impression: Age appropriate lumbosacral spine radiographs. If the patient remains symptomatic consider MRI for further investigation. Signed by Jared Moser MD 11/09/2017 03:08 P
== END ==
LOC: M SMT 14:04
PROVIDERS: ATTEND Internal Medicine
DX: Z02.71 Encounter for disability determination (principal)

== ENCOUNTER → 2017-11-29 | Outpatient (CLI) | payer OTHER, MEDICAID | LOC: M PAIN 15:30 | DX: G89.29 Other chronic pain (principal); M54.9 Dorsalgia, unspecified; M79.1 Myalgia; M19.90 Unspecified osteoarthritis, unspecified site; F43.10 Post-traumatic stress disorder, unspecified; G43.909 Migraine, unspecified, not intractable, without status migrainosus; M41.9 Scoliosis, unspecified; K76.0 Fatty (change of) liver, not elsewhere classified; Z88.0 Allergy status to penicillin; Z88.5 Allergy status to narcotic agent; Z91.041 Radiographic dye allergy status; Z79.899 Other long term (current) drug therapy | CPT/HCPCS: G0463 ==

== ENCOUNTER → 2017-12-20 | Outpatient (CLI) | payer OTHER, MEDICAID | LOC: M PAIN 13:00 | DX: G89.29 Other chronic pain (principal); M54.9 Dorsalgia, unspecified; M25.561 Pain in right knee; M25.562 Pain in left knee; M79.1 Myalgia; M19.90 Unspecified osteoarthritis, unspecified site; F43.10 Post-traumatic stress disorder, unspecified; G43.909 Migraine, unspecified, not intractable, without status migrainosus; M41.9 Scoliosis, unspecified; K76.0 Fatty (change of) liver, not elsewhere classified; Z79.899 Other long term (current) drug therapy; Z88.0 Allergy status to penicillin; Z88.5 Allergy status to narcotic agent; Z91.041 Radiographic dye allergy status | CPT/HCPCS: G0463 ==

== ENCOUNTER → 2017-12-21 | Outpatient (CLI) | payer OTHER ==
[2017-12-21 14:12] LABS: FREE THYROXINE INDEX 2.8 % (1.3-4.8); RHEUMATOID FACTOR QUANT < 10.0 IU/ML (0-15.0); T UPTAKE 27 % (30-39); THYROXINE (T4) 10.3 UG/DL (4.5-12.0)
[2017-12-21 14:21] LABS: ERYTHROCYTE SEDIMENTATION RATE 6 mm/hr (0-20)
== END ==
LOC: M LAB 12:02
DX: M79.1 Myalgia (principal)
CPT/HCPCS: 84443

== ENCOUNTER → 2018-01-25 | Outpatient (CLI) | payer OTHER, MEDICAID | LOC: M PAIN 14:00 | DX: M79.1 Myalgia (principal); M54.9 Dorsalgia, unspecified; M25.561 Pain in right knee; M25.562 Pain in left knee; Z91.040 Latex allergy status; Z88.0 Allergy status to penicillin; Z88.8 Allergy status to other drugs, medicaments and biological substances | CPT/HCPCS: G0463 ==

== ENCOUNTER → 2018-04-04 | Outpatient (CLI) | payer MEDICAID, OTHER | LOC: M PAIN 15:15 | DX: M54.5 Low back pain (principal); G89.29 Other chronic pain; M79.1 Myalgia; M46.88 Other specified inflammatory spondylopathies, sacral and sacrococcygeal region; M25.561 Pain in right knee; M25.562 Pain in left knee; M19.90 Unspecified osteoarthritis, unspecified site; F43.10 Post-traumatic stress disorder, unspecified; G43.909 Migraine, unspecified, not intractable, without status migrainosus; M41.9 Scoliosis, unspecified; K76.0 Fatty (change of) liver, not elsewhere classified; Z79.899 Other long term (current) drug therapy; Z88.0 Allergy status to penicillin; Z88.5 Allergy status to narcotic agent; Z91.041 Radiographic dye allergy status | CPT/HCPCS: G0463 ==

== ENCOUNTER → 2018-06-01 | Outpatient (CLI) | payer MEDICAID, OTHER | LOC: M PAIN 15:45 | DX: G89.29 Other chronic pain (principal); M79.1 Myalgia; M54.5 Low back pain; F43.10 Post-traumatic stress disorder, unspecified; G43.909 Migraine, unspecified, not intractable, without status migrainosus; M41.9 Scoliosis, unspecified; K76.0 Fatty (change of) liver, not elsewhere classified; G56.00 Carpal tunnel syndrome, unspecified upper limb; Z79.891 Long term (current) use of opiate analgesic; Z79.899 Other long term (current) drug therapy; Z88.0 Allergy status to penicillin; Z88.5 Allergy status to narcotic agent; Z88.8 Allergy status to other drugs, medicaments and biological substances | CPT/HCPCS: G0463 ==

== ENCOUNTER 2018-06-05 18:10 | Emergency (ER) | payer MEDICAID, OTHER ==
[2018-06-05] MEDS: GABAPENTIN 100 MG CAP PO ×3 (21:04)
== END 2018-06-05 21:07 | disposition home or self-care (01) ==
LOC: M ED 18:10
DX: M25.521 Pain in right elbow (principal); R20.2 Paresthesia of skin; G90.09 Other idiopathic peripheral autonomic neuropathy; K27.9 Peptic ulcer, site unspecified, unspecified as acute or chronic, without hemorrhage or perforation; M54.9 Dorsalgia, unspecified; Z79.899 Other long term (current) drug therapy; Z88.5 Allergy status to narcotic agent; Z88.0 Allergy status to penicillin; Z91.041 Radiographic dye allergy status
CPT/HCPCS: 73080

== ENCOUNTER → 2018-09-22 | Outpatient (CLI) | payer OTHER ==
[2018-09-22 13:18] LABS: BASO % 0.4 % (0.0-1.0); EOS # 0.1 10^3/uL (0.0-0.50); EOS % 1.8 % (0.0-3.0); HEMATOCRIT 38.7 % (36.0-47.0); HEMOGLOBIN 13.1 g/dl (12.0-15.5); IMMATURE GRANULOCYTE % 0.7 % (0-3.0); LYMPH # 3.5 10^3/uL (1.5-4.5); LYMPH % 51.8 % (24.0-44.0); MEAN CORPUSCULAR HEMOGLOBIN 30.5 pg (27.0-33.0); MEAN CORPUSCULAR HGB CONC 33.9 g/dl (32.0-36.5); MEAN CORPUSCULAR VOLUME 90.2 fl (80.0-96.0); MONO # 0.5 10^3/uL (0.0-0.8); MONO % 6.9 % (0.0-5.0); NEUTROPHILS # 2.6 10^3/uL (1.8-7.7); NEUTROPHILS % 38.4 % (36.0-66.0); PLATELET COUNT, AUTOMATED 283 10^3/uL (150-450); RED BLOOD COUNT 4.29 10^6/uL (4.00-5.40); RED CELL DISTRIBUTION WIDTH 11.9 % (11.5-14.5); WHITE BLOOD COUNT 6.8 10^3/uL (4.0-10.0)
[2018-09-22 13:54] LABS: ALBUMIN 3.9 GM/DL (3.2-5.2); ALBUMIN/GLOBULIN RATIO 1.18 (1.00-1.93); ALKALINE PHOSPHATASE 63 U/L (45-117); ALT/SGPT 42 U/L (12-78); ANION GAP 7 MEQ/L (8-16); AST/SGOT 23 U/L (7-37); BILIRUBIN,DIRECT < 0.1 MG/DL (0.0-0.2); BILIRUBIN,TOTAL 0.5 MG/DL (0.2-1.0); BLOOD UREA NITROGEN 11 MG/DL (7-18); CALCIUM LEVEL 8.9 MG/DL (8.5-10.1); CARBON DIOXIDE LEVEL 30 MEQ/L (21-32); CHLORIDE LEVEL 105 MEQ/L (98-107); CHOLESTEROL LEVEL 187 MG/DL (<200); CHOLESTEROL RISK RATIO 6.032 (<5); CREATININE FOR GFR 0.65 MG/DL (0.55-1.30); GLOMERULAR FILTRATION RATE > 60.0 (>60); GLUCOSE, FASTING 92 MG/DL (70-100); GLUCOSE,RANDOM 92 MG/DL (LESS THAN 200); HDL CHOLESTEROL 31 MG/DL (>40); LDL CHOLESTEROL 121 MG/DL (<100); NON-HDL-C 156 MG/DL; PHOSPHORUS LEVEL 3.5 MG/DL (2.5-4.9); POTASSIUM SERUM 4.3 MEQ/L (3.5-5.1); SODIUM LEVEL 142 MEQ/L (136-145); TOTAL PROTEIN 7.2 GM/DL (6.4-8.2); TRIGLYCERIDES LEVEL 173 MG/DL (<150)
[2018-09-22 13:57] LABS: TOTAL 25(OH) VITAMIN D 25.3 NG/ML (30.0-100.0)
[2018-09-22 14:39] LABS: ESTIMATED AVERAGE GLUCOSE 120 MG/DL (60-110); HEMOGLOBIN A1c 5.8 %
== END ==
LOC: M LAB 12:15
DX: F33.1 Major depressive disorder, recurrent, moderate (principal)
CPT/HCPCS: 93005

== ENCOUNTER → 2018-10-05 | Outpatient (CLI) | payer OTHER, MEDICAID | LOC: M PAIN 15:45 | DX: M47.816 Spondylosis without myelopathy or radiculopathy, lumbar region (principal); M79.18 Myalgia, other site; M53.3 Sacrococcygeal disorders, not elsewhere classified; M46.1 Sacroiliitis, not elsewhere classified; G89.29 Other chronic pain; M19.90 Unspecified osteoarthritis, unspecified site; F43.10 Post-traumatic stress disorder, unspecified; G43.909 Migraine, unspecified, not intractable, without status migrainosus; Z79.899 Other long term (current) drug therapy; Z88.0 Allergy status to penicillin; Z88.5 Allergy status to narcotic agent; Z91.041 Radiographic dye allergy status | CPT/HCPCS: G0463 ==

== ENCOUNTER → 2018-10-10 | Outpatient (CLI) | payer OTHER, MEDICAID ==
[2018-10-10 11:01] LABS: HEMATOCRIT 38.6 % (36.0-47.0); HEMOGLOBIN 12.9 g/dl (12.0-15.5); MEAN CORPUSCULAR HEMOGLOBIN 30.4 pg (27.0-33.0); MEAN CORPUSCULAR HGB CONC 33.4 g/dl (32.0-36.5); MEAN CORPUSCULAR VOLUME 90.8 fl (80.0-96.0); PLATELET COUNT, AUTOMATED 266 10^3/uL (150-450); RED BLOOD COUNT 4.25 10^6/uL (4.00-5.40); RED CELL DISTRIBUTION WIDTH 11.6 % (11.5-14.5); WHITE BLOOD COUNT 6.4 10^3/uL (4.0-10.0)
[2018-10-10 11:19] LABS: ESTIMATED AVERAGE GLUCOSE 114 MG/DL (60-110); HEMOGLOBIN A1c 5.6 %
[2018-10-10 11:31] LABS: ALBUMIN 3.9 GM/DL (3.2-5.2); ALBUMIN/GLOBULIN RATIO 1.34 (1.00-1.93); ALKALINE PHOSPHATASE 62 U/L (45-117); ALT/SGPT 47 U/L (12-78); ANION GAP 7 MEQ/L (8-16); AST/SGOT 25 U/L (7-37); BILIRUBIN,TOTAL 0.4 MG/DL (0.2-1.0); BLOOD UREA NITROGEN 8 MG/DL (7-18); CALCIUM LEVEL 8.8 MG/DL (8.5-10.1); CARBON DIOXIDE LEVEL 28 MEQ/L (21-32); CHLORIDE LEVEL 104 MEQ/L (98-107); CHOLESTEROL LEVEL 187 MG/DL (<200); CHOLESTEROL RISK RATIO 5.843 (<5); CREATININE FOR GFR 0.63 MG/DL (0.55-1.30); GLOMERULAR FILTRATION RATE > 60.0 (>60); GLUCOSE, FASTING 98 MG/DL (70-100); HDL CHOLESTEROL 32 MG/DL (>40); LDL CHOLESTEROL 115 MG/DL (<100); NON-HDL-C 155 MG/DL; SODIUM LEVEL 139 MEQ/L (136-145); THYROID STIMULATING HORMONE 0.682 uIU/ML (0.358-3.740); TOTAL PROTEIN 6.8 GM/DL (6.4-8.2); TRIGLYCERIDES LEVEL 201 MG/DL (<150)
[2018-10-10 11:32] LABS: TOTAL 25(OH) VITAMIN D 36.4 NG/ML (30.0-100.0)
[2018-10-11 08:14] LABS: HEPATITIS B SURFACE ANTIGEN NEGATIVE (NEGATIVE)
[2018-10-11 08:40] LABS: HEPATITIS C VIRUS ABY INDEX 0.1 INDEX (<0.8)
[2018-10-11 08:41] LABS: HEPATITIS B CORE ANTIBODY IGM NEGATIVE (NEGATIVE)
[2018-10-11 08:43] LABS: HEPATITIS A ANTIBODY IGM NEGATIVE (NEGATIVE)
== END ==
LOC: M LAB 10:21
DX: R53.83 Other fatigue (principal)
CPT/HCPCS: 71046

== ENCOUNTER 2018-12-24 18:42 | Emergency (ER) | payer MEDICAID, OTHER ==
[~2018-12-24] VITALS: Ht 167.6 cm; Wt 106.8 kg
[~2018-12-24 18:42] MED LIST changes: +HYDR-3713; +NEUR100C PO; -PANT40TA2 PO; +PANT40TA3 PO; +PRAZ2CAP; +TIZA4CAP PO; -TIZA4CAP3 PO; +ZOFR4TAB14 PO; -ZOFR4TAB3 PO
[2018-12-24] MEDS ORDERED: DESV100T3 PO (19:06)
[2018-12-24] MEDS ORDERED: ZOLP5TAB PO (19:06)
[2018-12-24] MEDS ORDERED: NS 1,000 ML IV ONE (19:15)
[2018-12-24] MEDS ORDERED: ONDANSETRON 4MG/2ML VIAL (J2405) IV ONE (19:15)
[2018-12-24] MEDS ORDERED: MORPHINE 2 MG/ML 1ML SYRINGE (J2270) IV PRN (19:15)
[2018-12-24 19:54] LABS: BASO % 0.4 % (0.0-1.0); EOS # 0.1 10^3/uL (0.0-0.50); EOS % 1.4 % (0.0-3.0); HEMATOCRIT 39.9 % (36.0-47.0); HEMOGLOBIN 13.6 g/dl (12.0-15.5); LYMPH # 4.1 10^3/uL (1.5-4.5); LYMPH % 41.9 % (24.0-44.0); MEAN CORPUSCULAR HGB CONC 34.1 g/dl (32.0-36.5); MEAN CORPUSCULAR VOLUME 90.9 fl (80.0-96.0); MONO # 0.7 10^3/uL (0.0-0.8); MONO % 6.7 % (0.0-5.0); NEUTROPHILS # 4.8 10^3/uL (1.8-7.7); PLATELET COUNT, AUTOMATED 288 10^3/uL (150-450); RED BLOOD COUNT 4.39 10^6/uL (4.00-5.40); WHITE BLOOD COUNT 9.8 10^3/uL (4.0-10.0)
[2018-12-24 20:04] LABS: INR 0.84; PROTHROMBIN TIME 11.6 SECONDS (12.1-14.4)
[2018-12-24 20:05] LABS: PARTIAL THROMBOPLASTIN TIME 26.9 SECONDS (25.4-37.6)
--- NOTE | 2018-12-24 20:19 | REPVR ---
EXAM: CT Abdomen and Pelvis Without Contrast EXAM DATE/TIME: 12/24/2018 7:31 PM CLINICAL HISTORY: 33 years old, female; Pain; Abdominal pain; Localized; Right upper quadrant (ruq); Additional info: Ruq pain, contrast allergy TECHNIQUE: Axial computed tomography images of the abdomen and pelvis without contrast. All CT scans at this facility use at least one of these dose optimization techniques: automated exposure control; mA and/or kV adjustment per patient size (includes targeted exams where dose is matched to clinical indication); or iterative reconstruction. Coronal and sagittal reformatted images were created and reviewed. COMPARISON: CT ABD PELVIS W/O CONTRAST 07/07/2013 4:33 PM FINDINGS: Lower thorax: The lung bases appear clear. ABDOMEN: Liver: Mild hepatomegaly. Gallbladder and bile ducts: The gallbladder is contracted. Normal appearing common bile duct. Pancreas: Normal appearing pancreas. Spleen: Normal-appearing spleen Adrenals: Normal adrenal glands. Kidneys and ureters: No evidence of calcified stone right or left kidney. Stomach and bowel: The cecum is in the right pelvis. Large amount of food material in the stomach. Normal-appearing small bowel. Appendix: Normal-appearing appendix. PELVIS: Bladder: Urinary bladder is empty. Reproductive: There is a large 4.4 CM mass projecting from the anterior aspect of the uterus. This may be a fibroid. This should be correlated with a pelvic ultrasound. There are follicular cysts in both ovaries. The uterus has increased in size since 2012. A large mass along the anterior surface of the uterus has also increased in size. This mass is difficult to separate from the uterus on the previous exam but thought to be extending along the surface of the urinary bladder and previously measuring 3.7 CM. ABDOMEN and PELVIS: Intraperitoneal space: There is no evidence of pneumoperitoneum. Bones/joints: There is no evidence of bony abnormality. Soft tissues: Unremarkable. Vasculature: The aorta appears normal in size. Lymph nodes: There is no evidence of lymphadenopathy. IMPRESSION: The uterus is prominent and mildly increased since 2012. There is a large round mass projecting from the anterior surface of the uterus measuring 4.4 CM and probably a large fibroid that has increased in size. However this should be correlated with a pelvic ultrasound for clarification. Electronically signed by: Salvador Guzman On 12/24/2018 20:19:45 PM
[2018-12-24 20:30] LABS: ALBUMIN 3.8 GM/DL (3.2-5.2); ALT/SGPT 55 U/L (12-78); AMYLASE 31 U/L (25-115); BILIRUBIN,DIRECT < 0.1 MG/DL (0.0-0.2); BILIRUBIN,TOTAL 0.2 MG/DL (0.2-1.0); BLOOD UREA NITROGEN 13 MG/DL (7-18); CALCIUM LEVEL 8.7 MG/DL (8.5-10.1); CARBON DIOXIDE LEVEL 26 MEQ/L (21-32); CHLORIDE LEVEL 102 MEQ/L (98-107); CREATININE FOR GFR 0.64 MG/DL (0.55-1.30); GLOMERULAR FILTRATION RATE > 60.0 (>60); GLUCOSE, FASTING 156 MG/DL (70-100); LIPASE 194 U/L (73-393); SODIUM LEVEL 138 MEQ/L (136-145); TOTAL PROTEIN 7.2 GM/DL (6.4-8.2)
[2018-12-24 20:32] LABS: HCG, SERUM QUALITATIVE NEGATIVE (NEGATIVE)
--- NOTE | 2018-12-24 20:40 | REPVR ---
EXAM: US Abdomen Limited, Right Upper Quadrant EXAM DATE/TIME: 12/24/2018 8:16 PM CLINICAL HISTORY: 33 years old, female; Pain; Abdominal pain; Localized; Right upper quadrant (ruq); Additional info: Ruq pain TECHNIQUE: Real-time ultrasound of the abdomen with image documentation. Examination was focused on the right upper quadrant. COMPARISON: GALLBLADDER US 05/17/2015 9:51 PM FINDINGS: Liver: Increased echogenicity of the liver consistent with fatty infiltration of the liver. Gallbladder: The gallbladder wall measures 2 mm. The gallbladder is partially contracted. No gallstones are identified. The common bile duct is normal in size measuring 4 mm. Negative Pizano's sign Pancreas: Detail of the pancreas is obscured by bowel gas. Right kidney: Normal appearing right kidney. IMPRESSION: 1. Severe fatty infiltration of the liver. 2. Partially contracted gallbladder. No evidence of biliary dilatation. No evidence of gallstones. Electronically signed by: Salvador Guzman On 12/24/2018 20:39:47 PM
[2018-12-24] MEDS ORDERED: SUCR1TA PO (22:11)
[2018-12-24] MEDS ORDERED: GI COCKTAIL 50ML BTL(HYOSCYAMINE/MAALOX/LIDOCAINE VISCOUS)(1:3:1) PO ONE (22:15)
[2018-12-24 22:31] VITALS: BP 128/72
--- NOTE | 2018-12-25 07:29 | ED PDOC ---
Post-Departure Follow-Up sebastien and brittani faxed formalr eport of ct abd/p for fu Aurelia Zamarripa MD Dec 25, 2018 07:29
== END 2018-12-24 22:36 | disposition home or self-care (01) ==
LOC: M ED 18:42
DX: K29.70 Gastritis, unspecified, without bleeding (principal); K21.9 Gastro-esophageal reflux disease without esophagitis; R93.5 Abnormal findings on diagnostic imaging of other abdominal regions, including retroperitoneum; K76.0 Fatty (change of) liver, not elsewhere classified; I10 Essential (primary) hypertension; F43.10 Post-traumatic stress disorder, unspecified; F41.9 Anxiety disorder, unspecified; M54.9 Dorsalgia, unspecified; M43.26 Fusion of spine, lumbar region; Z79.899 Other long term (current) drug therapy; Z88.5 Allergy status to narcotic agent; Z88.0 Allergy status to penicillin; Z91.041 Radiographic dye allergy status
CPT/HCPCS: 74176; 76705; 80048; 80076; 81001; 82150; 83690; 84703; 85025; 85610; 85730; 87040; 87086; 93041; 96361; 96374; 96375; 99285; J2270; J2405

== ENCOUNTER → 2019-02-08 | Outpatient (CLI) | payer OTHER ==
[~2019-02-08] MED LIST changes: +ALPR1TAB3; +DESV100T3 PO; +ONDA4TAB6 PO; +SUCR1TA PO; +ZOLP5TAB PO
[2019-02-08 15:41] LABS: ALT/SGPT 49 U/L (12-78); BILIRUBIN,TOTAL 0.5 MG/DL (0.2-1.0); BLOOD UREA NITROGEN 11 MG/DL (7-18); CARBON DIOXIDE LEVEL 29 MEQ/L (21-32); CHLORIDE LEVEL 104 MEQ/L (98-107); CHOLESTEROL LEVEL 196 MG/DL (<200); CHOLESTEROL RISK RATIO 6.322 (<5); CREATININE FOR GFR 0.83 MG/DL (0.55-1.30); GLOMERULAR FILTRATION RATE > 60.0 (>60); GLUCOSE, FASTING 110 MG/DL (70-100); HDL CHOLESTEROL 31 MG/DL (>40); LDL CHOLESTEROL 87 MG/DL (<100); NON-HDL-C 165 MG/DL; SODIUM LEVEL 141 MEQ/L (136-145); THYROID STIMULATING HORMONE 0.702 uIU/ML (0.358-3.740); TOTAL PROTEIN 7.2 GM/DL (6.4-8.2); TRIGLYCERIDES LEVEL 390 MG/DL (<150)
[2019-02-08 15:51] LABS: HEMATOCRIT 38.4 % (36.0-47.0); HEMOGLOBIN 13.1 g/dl (12.0-15.5); MEAN CORPUSCULAR HEMOGLOBIN 30.5 pg (27.0-33.0); MEAN CORPUSCULAR HGB CONC 34.1 g/dl (32.0-36.5); MEAN CORPUSCULAR VOLUME 89.5 fl (80.0-96.0); PLATELET COUNT, AUTOMATED 329 10^3/uL (150-450); RED BLOOD COUNT 4.29 10^6/uL (4.00-5.40); WHITE BLOOD COUNT 7.9 10^3/uL (4.0-10.0)
--- NOTE | 2019-02-10 00:04 | ECGEPIP ---
Stationary ECG Study [facility] Test Date: 2019-02-08 Pat Name: EDOUARD ALCALA Department: Room: - Gender: F Email Developer: NIKI : 1985 Requested By: Cy Crawley Order Number: [id number] Reading MD: Alexandro Couch Measurements Intervals [place] Rate: 78 P: 39 CT: 154 QRS: -35 QRSD: 104 T: -5 QT: 370 QTc: 422 Interpretive Statements SINUS RHYTHM MARKED LEFT AXIS DEVIATION POSSIBLE ANTERIOR MYOCARDIAL INFARCTION, OF INDETERMINATE AGE MODERATE T-WAVE ABNORMALITY, CONSIDER LATERAL ISCHEMIA COMPARED TO THE LAST 3 TRACINGS IN THE SYSTEM, NO SIGNIFICANT CHANGES Electronically Signed On 02-10-2019 0:04:04 EDT by Alexandro Couch
== END ==
LOC: M LAB 14:29
PROVIDERS: ATTEND Family Medicine
DX: I10 Essential (primary) hypertension (principal); I49.9 Cardiac arrhythmia, unspecified; R00.2 Palpitations; R94.31 Abnormal electrocardiogram [ECG] [EKG]; E05.90 Thyrotoxicosis, unspecified without thyrotoxic crisis or storm

== ENCOUNTER 2019-02-10 10:54 | Emergency (ER) | payer OTHER ==
[~2019-02-10] VITALS: Ht 167.6 cm; Wt 106.5 kg
[~2019-02-10 10:54] MED LIST changes: -ALPR1TAB3; -ONDA4TAB6 PO
[2019-02-10] MEDS ORDERED: ALPR1TAB3 (11:02)
[2019-02-10] MEDS ORDERED: KETOROLAC 30 MG/ML VIAL (J1885) IV ONE (11:45)
[2019-02-10] MEDS ORDERED: NS 1,000 ML IV ONE (11:45)
[2019-02-10] MEDS ORDERED: METOCLOPRAMIDE INJ 10MG/2ML VIAL (J2765) IV ONE (11:45)
[2019-02-10] MEDS ORDERED: diphenhydrAMINE INJ 50MG/ML VIAL (J1200) IV ONE (11:45)
[2019-02-10 12:07] LABS: BASO % 0.2 % (0.0-1.0); EOS % 0.2 % (0.0-3.0); HEMATOCRIT 43.4 % (36.0-47.0); HEMOGLOBIN 14.1 g/dl (12.0-15.5); LYMPH # 1.1 10^3/uL (1.5-4.5); LYMPH % 9.1 % (24.0-44.0); MEAN CORPUSCULAR HEMOGLOBIN 29.4 pg (27.0-33.0); MEAN CORPUSCULAR HGB CONC 32.5 g/dl (32.0-36.5); MEAN CORPUSCULAR VOLUME 90.6 fl (80.0-96.0); MONO # 0.5 10^3/uL (0.0-0.8); MONO % 4.4 % (0.0-5.0); NEUTROPHILS # 10.4 10^3/uL (1.8-7.7); NEUTROPHILS % 85.4 % (36.0-66.0); PLATELET COUNT, AUTOMATED 300 10^3/uL (150-450); RED BLOOD COUNT 4.79 10^6/uL (4.00-5.40); WHITE BLOOD COUNT 12.2 10^3/uL (4.0-10.0)
[2019-02-10 12:33] LABS: HCG, SERUM QUALITATIVE NEGATIVE (NEGATIVE)
[2019-02-10 12:57] LABS: ALBUMIN 4.3 GM/DL (3.2-5.2); ALT/SGPT 48 U/L (12-78); BILIRUBIN,DIRECT 0.2 MG/DL (0.0-0.2); BILIRUBIN,TOTAL 0.9 MG/DL (0.2-1.0); BLOOD UREA NITROGEN 16 MG/DL (7-18); CARBON DIOXIDE LEVEL 27 MEQ/L (21-32); CHLORIDE LEVEL 101 MEQ/L (98-107); CREATININE FOR GFR 0.76 MG/DL (0.55-1.30); GLOMERULAR FILTRATION RATE > 60.0 (>60); GLUCOSE, FASTING 112 MG/DL (70-100); LIPASE 202 U/L (73-393); SODIUM LEVEL 138 MEQ/L (136-145); TOTAL PROTEIN 7.7 GM/DL (6.4-8.2)
[2019-02-10 13:41] LABS: INFLUENZA A AMPLIFICATION NEGATIVE (NEGATIVE); INFLUENZA B AMPLIFICATION NEGATIVE (NEGATIVE)
[2019-02-10 14:52] VITALS: BP 132/66
[2019-02-10] MEDS ORDERED: ONDA4TAB6 PO (15:14)
== END 2019-02-10 15:34 | disposition home or self-care (01) ==
LOC: M ED 10:54
DX: G43.909 Migraine, unspecified, not intractable, without status migrainosus (principal); I10 Essential (primary) hypertension; K27.9 Peptic ulcer, site unspecified, unspecified as acute or chronic, without hemorrhage or perforation; F33.9 Major depressive disorder, recurrent, unspecified; F41.9 Anxiety disorder, unspecified; F43.10 Post-traumatic stress disorder, unspecified; K76.0 Fatty (change of) liver, not elsewhere classified; K21.9 Gastro-esophageal reflux disease without esophagitis; Z79.899 Other long term (current) drug therapy; Z88.0 Allergy status to penicillin; Z88.5 Allergy status to narcotic agent; Z91.041 Radiographic dye allergy status
CPT/HCPCS: 80048; 80076; 81001; 83690; 84703; 85025; 87502; 96361; 96374; 96375; 99284; J1200; J1885; J2765

== ENCOUNTER → 2019-03-19 | Outpatient (CLI) | payer OTHER, MEDICAID ==
[~2019-03-19] MED LIST changes: +ALPR1TAB3; +ONDA4TAB6 PO
--- NOTE | 2019-04-04 01:29 | ECWPNPC ---
PATIENT NAME: EDOUARD ALCALA : 1985 GENDER: FEMALE VISIT DATE: 03/19/2019 DISCHARGE DATE: 03/19/19 1550 VISIT LOCKED DATE TIME: PHYSICIAN: PATY HANCOCK MD RESOURCE: PATY HANCOCK MD REASON FOR APPOINTMENT 1. BACK HISTORY OF PRESENT ILLNESS HISTORY OF PRESENT ILLNESS: PAIN THE PATIENT DESCRIBES THE PAIN... 33 YEAR OLD FEMALE PATIENT WITH A HISTORY OF LOW BACK PAIN. THE PATIENT DESCRIBES THE PAIN ACHING, BURNING, STABBING, SHOOTING, SHARP, SORE, TENDER, AND CONTINUOUS WITH A PAIN SCORE OF 7-10/10 DEPENDING ON PHYSICAL ACTIVITY. THE PATIENT REPORTS TRYING DIFFERENT INTERVENTIONS IN THE PAST BUT DID NOT EXPERIENCE MUCH PAIN RELIEF. THE PATIENT SAYS SHE IS USING ONE HYDROCODONE PER DAY AND TIZANIDINE TO AID IN PAIN RELIEF. THE PATIENT SAYS IN THE PAST MONTH SHE HAS EXPERIENCED A FAMILY LOSS AND OTHER COMPLICATIONS IN HER LIFE THAT IS REQUIRING HER TO BE MORE PHYSICAL. PATIENT DENIES UNEXPLAINABLE WEIGHT LOSS, FEVER, CHILLS, NEW CHANGES ON HER URINARY OR BOWEL CONTROL. FALL RISK SCREENING: SCREENING :NO FALLS REPORTED IN THE LAST YEAR CURRENT MEDICATIONS TAKING CLONIDINE HCL 0.1 MG TABLET 1 TABLET AT BEDTIME ORALLY TID PRN TAKING PRAZOSIN HCL 2 MG CAPSULE 1-2 CAPSULE AT BEDTIME ORALLY ONCE A DAY PRN TAKING PROTONIX 40 MG TABLET DELAYED RELEASE 1 TABLET ORALLY ONCE A DAY TAKING VITAMIN D 2000 UNIT CAPSULE 1 CAPSULE ORALLY ONCE A DAY TAKING TYLENOL 325 MG TABLET 2 TABLETS NEEDED ORALLY EVERY 6 HRS TAKING BUSPIRONE HCL 5 MG TABLET 1 TABLET ORALLY TWICE A DAY TAKING NORCO 5-325 MG TABLET 1 TABLET NEEDED ORALLY (CHRONIC PAIN CODE D) DAILY PRN PAIN MDD=1 TAKING TIZANIDINE HCL 4 MG TABLET 1 TABLET NEEDED ORALLY BEFORE BEDTIME MAY REPEAT IN 5 HRS MDD2 TAKING DESVENLAFAXINE SUCCINATE ER 100 MG TABLET EXTENDED RELEASE 24 HOUR 1 TABLET ORALLY ONCE A DAY TAKING ALPRAZOLAM 1 MG TABLET 1 TABLET ORALLY TWICE A DAY TAKING MICROGESTIN 1.5/30 1.5-30 MG-MCG TABLET 1 TABLET ORALLY ONCE A DAY TAKING CARAFATE 1 GM TABLET 1 TABLET ON AN EMPTY STOMACH ORALLY TWICE A DAY NOT-TAKING HYDROXYZINE HCL 50 MG TABLET 1 TABLET NEEDED ORALLY TID NOT-TAKING FLUCONAZOLE 150 MG TABLET 1 TABLET ORALLY WEEKLY NOT-TAKING TRAZODONE HCL 150 MG TABLET 1 TABLET AT BEDTIME ORALLY ONCE A DAY NOT-TAKING HYDROCODONE-ACETAMINOPHEN 5-325 MG TABLET 1 TABLET NEEDED ORALLY DAILY FOR PAIN MDD1 NOT-TAKING TIZANIDINE HCL 4 MG TABLET 1 ORALLY BEFORE BEDTIME MAY REPEAT IN 4HRS MDD2 NOT-TAKING VITAMIN D (ERGOCALCIFEROL) 80902 UNIT CAPSULE 1 CAPSULE ORALLY DISCONTINUED CITALOPRAM HYDROBROMIDE 20 MG TABLET 1 TABLET ORALLY ONCE A DAY DISCONTINUED FLUOXETINE 20 MG CAPSULE 3 CAPSULE IN THE MORNING ORALLY ONCE A DAY DISCONTINUED ESZOPICLONE 2 MG TABLET 1 TABLET IMMEDIATELY BEFORE BEDTIME ORALLY ONCE A DAY MEDICATION LIST REVIEWED AND RECONCILED WITH THE PATIENT PAST MEDICAL HISTORY MILD DISPLASIA ULCER BUSITIS CARPAL TUNNEL ARTHRITIS PTSD MIGRAINES SCOLIOSIS FATTY LIVER DISEASE ALLERGIES CONTRAST: HIVES - SIDE EFFECTS YLENOL WITH CODEINE: RASH - SIDE EFFECTS PENICILLIN (FOR ALLERGIES USE ONLY): HIVES - ALLERGY SURGICAL HISTORY NO SURGICAL HISTORY DOCUMENTED. FAMILY HISTORY FATHER: , DIAGNOSED WITH HYPERTENSION, HEART DISEASE MOTHER: , DIABETES, HYPERTENSION, HEART DISEASE, STROKE, CANCER SIBLINGS: DIABETES, HYPERTENSION, HEART DISEASE PT DOES NOT KNOW FAMILY HISTORY ON FATHER\\\'S SIDE. SOCIAL HISTORY GENERAL: TOBACCO USE ARE YOU A:NONSMOKER PAIN CLINIC PFS, CLERGY, PUBLIC HEALTH REFERRALS PFS REFERRAL NEEDED?NO CLERGY REFERRAL NEEDED?NO PUBLIC HEALTH REFERRAL NEEDED?NO WAS THE PROVIDER NOTIFIED OF ANY PERTINENT INFO?NO HAS THE PATIENT BEEN EDUCATED REGARDING HIS/HER PLAN OF CARE?YES HAS THE PATIENT BEEN EDUCATED REGARDING PAIN, THE RISK FOR PAIN, THE IMPORTANCE OF EFFECTIVE PAIN MANAGEMENT, AND THE PAIN ASSESSMENT PROCESS?YES CAFFEINE CAFFEINE USE?YES HOW OFTEN AND HOW MUCH? DAILY ADVANCE DIRECTIVE ADVANCE DIRECTIVE DISCUSSED WITH PATIENT:YES DECLINED INFO AT THIS TIME LANGUAGE LANGUAGES SPOKEN:SAMI NEW PATIENT PAIN DIARY FROM 0-10, WHAT LEVEL IS YOUR PAIN TODAY?8 ALCOHOL SCREENING DID YOU HAVE A DRINK CONTAINING ALCOHOL IN THE PAST YEAR?NO POINTS0 INTERPRETATIONNEGATIVE RECREATIONAL DRUG USE DRUG USE?NO LEARNING BARRIERS / SPECIAL NEEDS BARRIERS TO LEARNING?NO HEARING IMPAIRED?NO VISION IMPAIRED?NO COGNITIVELY IMPAIRED?NO READINESS TO LEARN?YES LEARNING PREFERENCES?NO LEARNING CAPABILITIES PRESENT?YES EMOTIONAL BARRIERS?NO SPECIAL DEVICES?NO STEAM CLOTHES PRESS OPERATOR NEEDED?NO REVIEWED WITH PT 10/05/18 Bel SANTOS RN. HOSPITALIZATION/MAJOR DIAGNOSTIC PROCEDURE CHILDBIRTH REVIEW OF SYSTEMS REVIEWED BY: PROVIDER: APTY HANCOCK MD . CONSTITUTIONAL: ANY CHANGE IN YOUR MEDICAL CONDITION? NO . CHILLS NO . FEVER NO . INFECTION: DO YOU HAVE NEW INFECTIONS? NO . DO YOU HAVE HISTORY OF MRSA? NO . MUSCULOSKELETAL: ANY NEW PATTERNS OF PAIN OR NUMBNESS? YES, PAIN IS WORSE . GASTROENTEROLOGY: ANY NEW CHANGE IN BOWEL CONTROL? NO . GENITOURINARY: ANY NEW CHANGE IN BLADDER CONTROL? NO . IS THERE A CHANCE YOU COULD BE ? NO . HEMATOLOGY/LYMPH: DO YOU TAKE ANY BLOOD THINNERS? (FOR EXAMPLE- COUMADIN, PLAVIX, AGGRENOX, PLATEL, PRADAXA, OR XARELTO) NO . WHEN WAS YOUR LAST DOSE? DATE: TIME: . NEUROLOGY: HAVE YOU FALLEN IN THE PAST 12 MONTHS? YES, FELL ON THE ICE LAST WINTER . ANY NEW EXTREMITY NUMBNESS OR WEAKNESS? NO . CARDIOLOGY: DO YOU HAVE A PACEMAKER OR DEFIBRILLATOR? NO . RESPIRATORY: HAVE YOU BEEN SICK IN THE PAST WEEK? YES, STOMACH VIRUSE RESOLVED . FEVER NO . FLU LIKE SYMPTOMS? NO . COUGH NO . INTEGUMENTARY: DO YOU HAVE ANY RASHES OR OPEN SORES? NO . ALLERGIC/IMMUNO: ARE YOU ALLERGIC TO IV DYE? YES . ANY NEW ALLERGIES? NO . PSYCHIATRIC: DO YOU HAVE THOUGHTS OF HURTING YOURSELF OR SOMEONE ELSE? NO . ARE YOU ABUSED, NEGLECTED, OR IN AN UNSAFE ENVIRONMENT? NO . ENDOCRINOLOGY: ARE YOU DIABETIC? NO . OTHER: DO YOU NEED ANY PRESCRIPTIONS? YES, NORCO FOR NEXT MONTH . IF YES, PLEASE LIST: ____ . ANY NEW PROBLEMS WITH YOUR MEDICATIONS? YES, MEDS ARE NOT EFFECTIVE . WHEN DID YOU LAST EAT? ____ . WHEN DID YOU LAST DRINK? ____ . WHAT DID YOU LAST DRINK? ____ . NAME OF PERSON DRIVING YOU HOME? ____ . DO YOU HAVE ANY OTHER QUESTIONS OR CONCERNS NO . VITAL SIGNS WT 237.0 LBS, HT 66 IN, BMI 38.25 INDEX, BP 131/78 MM HG, HR 91 /MIN, RR 18 /MIN, TEMP 98.1 F, OXYGEN SAT % 97%, NA INITIALS AW 1442, REVIEWED BY: EM. EXAMINATION GENERAL EXAMINATION: PATIENT IS ALERT O X 3 AND COOPERATIVE. TENDERNESS IN THE LOW BACK. ASSESSMENTS SPONDYLOSIS OF LUMBAR REGION WITHOUT MYELOPATHY OR RADICULOPATHY - M47.816 (PRIMARY) TREATMENT SPONDYLOSIS OF LUMBAR REGION WITHOUT MYELOPATHY OR RADICULOPATHY CLINICAL NOTES: WE DISCUSSED SEVERAL ISSUES WITH MS. ALCALA' PAIN MANAGEMENT CASE. THE PATIENT WILL CONTINUE WITH ONE HYDROCODONE PER DAY FOR SOMATIC PAIN AND TIZANIDINE FOR SPASMS AND PAIN. I DISCUSSED THE RISKS ASSOCIATED WITH THE USE OF OPIOIDS INCLUDING THE POSSIBLE DEVELOPMENT OF ADDICTION OR TOLERANCE AND THE PATIENT VERBALIZED UNDERSTANDING. I ALSO HAD A DISCUSSION WITH THE PATIENT ABOUT TYLENOL USE AND THE PATIENT UNDERSTANDS TO TAKE LESS THAN 3 GRAMS PER DAY. ISTOP __# [id number] WAS REVIEWED. I WILL PERFORM A PILL COUNTING AND URINE TOXICOLOGY TODAY. THE PATIENT WILL FOLLOW UP IN 2 MONTHS. INSTRUCTIONS WERE GIVEN, QUESTIONS WERE ANSWERED, PATIENT REPORTS UNDERSTANDING AND AGREES WITH THE PLAN. I, KEL AVILES, DOCUMENTED THE ABOVE INFORMATION ACTING A SCRIBE FOR DR. HANCOCK. I HAVE REVIEWED THE ABOVE DOCUMENT, WRITTEN BY KEL MANDEL AND I VERIFY THAT IT IS ACCURATE. . OTHERS REFILL NORCO TABLET, 5-325 MG, 1 TABLET NEEDED, ORALLY (CHRONIC PAIN CODE D), DAILY PRN PAIN MDD=1, 30 DAYS, 30, REFILLS 0 REFILL TIZANIDINE HCL TABLET, 4 MG, 1 TABLET NEEDED, ORALLY, BEFORE BEDTIME MAY REPEAT IN 5 HRS MDD2, 30 DAY(S), 30, REFILLS 1 PROCEDURE CODES FA211 ESTABILISHED PATIENT [facility] CHARGE G8427 CURRENT MEDS W/DOSAGES DOCUMENTED G8730 PAIN ASSESS POS TOOL F/U PLAN DOC DISPOSITION & COMMUNICATION FOLLOW UP 2 MONTHS ELECTRONICALLY SIGNED BY PATY HANCOCK MD, MD ON 04/02/2019 AT 04:56 PM EDT DISCLAIMER : THIS IS A VISIT SUMMARY EXTRACTED FROM THE [employer] CHART. IT IS NOT A COPY OF THE [employer] PROGRESS NOTE. MTDD
== END ==
LOC: M PAIN 14:45
PROVIDERS: ATTEND Anesthesiology
DX: M47.816 Spondylosis without myelopathy or radiculopathy, lumbar region (principal); M19.90 Unspecified osteoarthritis, unspecified site; F43.10 Post-traumatic stress disorder, unspecified; G43.909 Migraine, unspecified, not intractable, without status migrainosus; K76.0 Fatty (change of) liver, not elsewhere classified; Z79.899 Other long term (current) drug therapy; Z88.0 Allergy status to penicillin; Z88.5 Allergy status to narcotic agent; Z91.041 Radiographic dye allergy status

== ENCOUNTER → 2019-04-18 | Day surgery (SDC) | payer OTHER ==
[~2019-04-18] VITALS: Ht 167.6 cm; Wt 105.2 kg
[~2019-04-18] MED LIST changes: -ALPR1TAB3; +ALPR1TAB3 PO; -HYDR-3713; +HYDR-3713 PO; +NS 1,000 ML IV ONE; -PRAZ2CAP; +PRAZ2CAP PO
[2019-04-18 11:45] VITALS: BP 140/87
== END | disposition home or self-care (01) ==
LOC: M OPP 09:47
PROVIDERS: ATTEND Surgery
DX: Z53.09 Procedure and treatment not carried out because of other contraindication (principal)

== ENCOUNTER 2019-05-30 08:55 | Day surgery (SDC) | payer OTHER ==
[~2019-05-30] VITALS: Ht 167.6 cm; Wt 103.8 kg
[2019-05-30] MEDS ORDERED: PROPOFOL 500 MG/50 ML VIAL As Ordered ONE (09:35)
[2019-05-30] MEDS ORDERED: LIDOCAINE 2% INJ 100 MG/5 ML SDV (FOR ANES.) As Ordered ONE (09:35)
[2019-05-30] MEDS ORDERED: fentaNYL 100 MCG/2 ML INJECTION (J3010) As Ordered ONE (09:35)
--- NOTE | 2019-05-30 09:47 | ROOR ---
Patient Name: Edis Bateman Procedure Date: 05/30/2019 9:30 AM Date of : 1985 Age: 33 Room: [facility] Gender: Female Note Status: Finalized Procedure: Upper GI endoscopy Indications: Heartburn, Failure to respond to medical treatment Providers: DO Chio Crowe MD: EMILE HARDY MD Requesting Provider: Medicines: Propofol per Anesthesia Complications: No immediate complications. Procedure: Pre-Anesthesia Assessment: - Prior to the procedure, a History and Physical was performed, and patient medications and allergies were reviewed. The patient is competent. The risks and benefits of the procedure and the sedation options and risks were discussed with the patient. All questions were answered and informed consent was obtained. Patient identification and proposed procedure were verified by the physician, the nurse, the anesthesiologist and the furniture technician in the endoscopy suite. Mental Status Examination: alert and oriented. Airway Examination: normal oropharyngeal airway and neck mobility. Respiratory Examination: clear to auscultation. CV Examination: normal. Prophylactic Antibiotics: The patient does not require prophylactic antibiotics. Prior Anticoagulants: The patient has taken no previous anticoagulant or antiplatelet agents. ASA Grade Assessment: II - A patient with mild systemic disease. After reviewing the risks and benefits, the patient was deemed in satisfactory condition to undergo the procedure. The anesthesia plan was to use monitored anesthesia care (MAC). Immediately prior to administration of medications, the patient was re-assessed for adequacy to receive sedatives. The heart rate, respiratory rate, oxygen saturations, blood pressure, adequacy of pulmonary ventilation, and response to care were monitored throughout the procedure. The physical status of the patient was re-assessed after the procedure. The Endoscope was introduced through the mouth, and advanced to the third part of duodenum. The upper GI endoscopy was accomplished without difficulty. The patient tolerated the procedure well. Findings: Two non-bleeding superficial gastric ulcers with no stigmata of bleeding were found in the prepyloric region of the stomach. The largest lesion was less than one mm in largest dimension. Biopsies were taken with a cold forceps for Helicobacter pylori testing. Estimated blood loss was minimal. Scattered mild inflammation characterized by congestion (edema), erosions and friability was found in the prepyloric region of the stomach. The exam was otherwise without abnormality. Impression: - Non-bleeding gastric ulcers with no stigmata of bleeding. Biopsied. - Gastritis. - The examination was otherwise normal. Recommendation: - Patient has a contact number available for emergencies. The signs and symptoms of potential delayed complications were discussed with the patient. Return to normal activities tomorrow. Written discharge instructions were provided to the patient. - Return to my office at appointment to be scheduled. Zurdo Hunter DO 05/30/2019 9:47:21 AM Electronically signed by Zurdo Hunter DO Number of Addenda: 0 Note Initiated On: 05/30/2019 9:30 AM Estimated Blood Loss: Estimated blood loss was minimal.
[2019-05-30 10:10] VITALS: BP 135/74
== END 2019-05-30 10:36 | disposition home or self-care (01) ==
LOC: M OPP 08:55
PROVIDERS: ATTEND Surgery
DX: K29.70 Gastritis, unspecified, without bleeding (principal); R12 Heartburn; K25.9 Gastric ulcer, unspecified as acute or chronic, without hemorrhage or perforation; Z79.891 Long term (current) use of opiate analgesic; Z79.899 Other long term (current) drug therapy; Z88.8 Allergy status to other drugs, medicaments and biological substances; Z88.0 Allergy status to penicillin; Z91.040 Latex allergy status
CPT/HCPCS: 43239; 88305; J3010

== ENCOUNTER 2019-06-15 14:57 | Emergency (ER) | payer OTHER ==
[~2019-06-15] VITALS: Ht 167.6 cm; Wt 102.2 kg
[~2019-06-15 14:57] MED LIST changes: -NS 1,000 ML IV ONE
[2019-06-15] MEDS ORDERED: KETOROLAC 60 MG/2 ML VIAL (J1885) IM ONE (17:00)
--- NOTE | 2019-06-15 18:00 | REP ---
Thoracic spine three views: Comparison is a PA and lateral chest dated 10/10/2018. There is mild scoliosis convex right, unchanged. Vertebral body heights, interspacing alignment are normal and unchanged. Mineralization and pedicles are normal. Impression: Mild scoliosis, otherwise negative thoracic spine. Electronically Signed by Zurdo Whitley MD 06/15/2019 05:51 P
--- NOTE | 2019-06-15 18:01 | REP ---
Lumbar spine five views: Comparison is 10/22/2011. Vertebral body heights, interspacing alignment are normal. There is no spondylolysis or spondylolisthesis. The pedicles and facets are unremarkable. The sacroiliac articulations are unremarkable. There is no interval change. Impression: Negative lumbar spine. Electronically Signed by Zurdo Whitley MD 06/15/2019 05:52 P
[2019-06-15] MEDS ORDERED: NORCO, ANEXSIA 5/325MG TABLET (HYDROcodone/ACETAMINOPHEN) PO ONE (19:00)
[2019-06-15] MEDS ORDERED: KETO10TAB PO (19:15)
[2019-06-15 19:28] VITALS: BP 139/67
--- NOTE | 2019-06-15 20:31 | REP ---
Cervical spine three views AP and lateral projections: The vertebral body heights, interspacing alignment are normal. The prevertebral soft tissues are normal. The facets are normally aligned. The odontoid view is unremarkable. Impression: Negative three-view cervical spine. Electronically Signed by Zurdo Whitley MD 06/15/2019 08:23 P
== END 2019-06-15 19:29 | disposition home or self-care (01) ==
LOC: M ED 14:57
DX: S30.0XXA Contusion of lower back and pelvis, initial encounter (principal); G89.29 Other chronic pain; M54.5 Low back pain; W10.9XXA Fall (on) (from) unspecified stairs and steps, initial encounter; Y92.099 Unspecified place in other non-institutional residence as the place of occurrence of the external cause; Y93.9 Activity, unspecified; Y99.9 Unspecified external cause status; I10 Essential (primary) hypertension; K21.9 Gastro-esophageal reflux disease without esophagitis; Z87.442 Personal history of urinary calculi; Z79.899 Other long term (current) drug therapy; Z91.040 Latex allergy status; Z88.0 Allergy status to penicillin; Z88.5 Allergy status to narcotic agent
CPT/HCPCS: 72040; 72072; 72110; 81001; 96372; 99283; J1885

== ENCOUNTER → 2019-06-28 | Outpatient (CLI) | payer OTHER, MEDICAID ==
[~2019-06-28] MED LIST changes: +KETO10TAB PO
--- NOTE | 2019-06-30 00:35 | ECWPNPC ---
PATIENT NAME: EDOUARD ALCALA : 1985 GENDER: FEMALE VISIT DATE: 06/28/2019 DISCHARGE DATE: 06/28/19 1421 VISIT LOCKED DATE TIME: PHYSICIAN: JENNIFER ROBLES RESOURCE: JENNIFER ROBLES REASON FOR APPOINTMENT 1. [address] Vyas HISTORY OF PRESENT ILLNESS HISTORY OF PRESENT ILLNESS: PAIN THE PATIENT DESCRIBES THE PAIN... 34 YEAR OLD FEMALE IN FOR CHRONIC PAIN FOLLOW UP. SHE RATES HER PAIN AT AN 8/10 AND DESCRIBES IT ACHING, BURNING, SORE, TENDER, SHARP, STABBING, AND SHOOTING. FALL RISK SCREENING: SCREENING :NO FALLS REPORTED IN THE LAST YEAR CURRENT MEDICATIONS TAKING CLONIDINE HCL 0.1 MG TABLET 1 TABLET AT BEDTIME ORALLY TID PRN TAKING PRAZOSIN HCL 2 MG CAPSULE 1-2 CAPSULE AT BEDTIME ORALLY ONCE A DAY PRN TAKING PROTONIX 40 MG TABLET DELAYED RELEASE 1 TABLET ORALLY ONCE A DAY TAKING VITAMIN D 2000 UNIT CAPSULE 1 CAPSULE ORALLY ONCE A DAY TAKING TYLENOL 325 MG TABLET 2 TABLETS NEEDED ORALLY EVERY 6 HRS TAKING DESVENLAFAXINE SUCCINATE ER 100 MG TABLET EXTENDED RELEASE 24 HOUR 1 TABLET ORALLY ONCE A DAY TAKING ALPRAZOLAM 1 MG TABLET 1 TABLET ORALLY TWICE A DAY TAKING CARAFATE 1 GM TABLET 1 TABLET ON AN EMPTY STOMACH ORALLY QID TAKING TIZANIDINE HCL 4 MG TABLET 1 TABLET NEEDED ORALLY BEFORE BEDTIME MAY REPEAT IN 5 HRS MDD2 TAKING NORCO 5-325 MG TABLET 1 TABLET NEEDED ORALLY (CHRONIC PAIN CODE D) DAILY PRN PAIN MDD=1 NOT-TAKING BUSPIRONE HCL 5 MG TABLET 1 TABLET ORALLY TWICE A DAY NOT-TAKING MICROGESTIN 1.5/30 1.5-30 MG-MCG TABLET 1 TABLET ORALLY ONCE A DAY NOT-TAKING HYDROXYZINE HCL 50 MG TABLET 1 TABLET NEEDED ORALLY TID NOT-TAKING FLUCONAZOLE 150 MG TABLET 1 TABLET ORALLY WEEKLY NOT-TAKING TRAZODONE HCL 150 MG TABLET 1 TABLET AT BEDTIME ORALLY ONCE A DAY NOT-TAKING HYDROCODONE-ACETAMINOPHEN 5-325 MG TABLET 1 TABLET NEEDED ORALLY DAILY FOR PAIN MDD1 NOT-TAKING TIZANIDINE HCL 4 MG TABLET 1 ORALLY BEFORE BEDTIME MAY REPEAT IN 4HRS MDD2 NOT-TAKING VITAMIN D (ERGOCALCIFEROL) 36856 UNIT CAPSULE 1 CAPSULE ORALLY MEDICATION LIST REVIEWED AND RECONCILED WITH THE PATIENT PAST MEDICAL HISTORY MILD DISPLASIA ULCER BUSITIS CARPAL TUNNEL ARTHRITIS PTSD MIGRAINES SCOLIOSIS FATTY LIVER DISEASE ALLERGIES CONTRAST: HIVES - SIDE EFFECTS YLENOL WITH CODEINE: RASH - SIDE EFFECTS PENICILLIN (FOR ALLERGIES USE ONLY): HIVES - ALLERGY SURGICAL HISTORY DENIES PAST SURGICAL HISTORY FAMILY HISTORY FATHER: , DIAGNOSED WITH HYPERTENSION, HEART DISEASE MOTHER: , DIABETES, HYPERTENSION, HEART DISEASE, STROKE, CANCER SIBLINGS: DIABETES, HYPERTENSION, HEART DISEASE PT DOES NOT KNOW FAMILY HISTORY ON FATHER\\\'S SIDE. SOCIAL HISTORY GENERAL: TOBACCO USE ARE YOU A:NONSMOKER PAIN CLINIC PFS, CLERGY, PUBLIC HEALTH REFERRALS PFS REFERRAL NEEDED?NO CLERGY REFERRAL NEEDED?NO PUBLIC HEALTH REFERRAL NEEDED?NO WAS THE PROVIDER NOTIFIED OF ANY PERTINENT INFO?NO HAS THE PATIENT BEEN EDUCATED REGARDING HIS/HER PLAN OF CARE?YES HAS THE PATIENT BEEN EDUCATED REGARDING PAIN, THE RISK FOR PAIN, THE IMPORTANCE OF EFFECTIVE PAIN MANAGEMENT, AND THE PAIN ASSESSMENT PROCESS?YES CAFFEINE CAFFEINE USE?YES HOW OFTEN AND HOW MUCH? DAILY ADVANCE DIRECTIVE ADVANCE DIRECTIVE DISCUSSED WITH PATIENT:YES DECLINED INFO AT THIS TIME LANGUAGE LANGUAGES SPOKEN:MALAWIAN NEW PATIENT PAIN DIARY FROM 0-10, WHAT LEVEL IS YOUR PAIN TODAY?8 ALCOHOL SCREENING DID YOU HAVE A DRINK CONTAINING ALCOHOL IN THE PAST YEAR?NO POINTS0 INTERPRETATIONNEGATIVE RECREATIONAL DRUG USE DRUG USE?NO LEARNING BARRIERS / SPECIAL NEEDS BARRIERS TO LEARNING?NO HEARING IMPAIRED?NO VISION IMPAIRED?NO COGNITIVELY IMPAIRED?NO READINESS TO LEARN?YES LEARNING PREFERENCES?NO LEARNING CAPABILITIES PRESENT?YES EMOTIONAL BARRIERS?NO SPECIAL DEVICES?NO WAIT STAFF NEEDED?NO REVIEWED WITH PT 10/05/18 5159 Gogo SANTOS RNREVIEWED WITH PATIENT 06/28/19 1355 NLJ. HOSPITALIZATION/MAJOR DIAGNOSTIC PROCEDURE CHILDBIRTH REVIEW OF SYSTEMS REVIEWED BY: PROVIDER: STACI EATON . CONSTITUTIONAL: ANY CHANGE IN YOUR MEDICAL CONDITION? NO . CHILLS NO . FEVER NO . INFECTION: DO YOU HAVE NEW INFECTIONS? NO . DO YOU HAVE HISTORY OF MRSA? NO . MUSCULOSKELETAL: ANY NEW PATTERNS OF PAIN OR NUMBNESS? YES- INCREASED PAIN IN BACK AND BILATERAL KNEES . GASTROENTEROLOGY: ANY NEW CHANGE IN BOWEL CONTROL? NO . GENITOURINARY: ANY NEW CHANGE IN BLADDER CONTROL? NO . IS THERE A CHANCE YOU COULD BE ? NO . HEMATOLOGY/LYMPH: DO YOU TAKE ANY BLOOD THINNERS? (FOR EXAMPLE- COUMADIN, PLAVIX, AGGRENOX, PLATEL, PRADAXA, OR XARELTO) NO . WHEN WAS YOUR LAST DOSE? DATE: TIME: . NEUROLOGY: HAVE YOU FALLEN IN THE PAST 12 MONTHS? YES- FELL 2 WEKS AGO, STATES HER KNEES GAVE OUT, WAS ER, NO INJURIES . ANY NEW EXTREMITY NUMBNESS OR WEAKNESS? YES- INCREASED PAIN, NUMBNESS AND TINGLING IN BILATERAL FEET AND FINGERS, BILATERAL NEE SWELLING . CARDIOLOGY: DO YOU HAVE A PACEMAKER OR DEFIBRILLATOR? NO . RESPIRATORY: HAVE YOU BEEN SICK IN THE PAST WEEK? NO . FEVER NO . FLU LIKE SYMPTOMS? NO . COUGH NO . INTEGUMENTARY: DO YOU HAVE ANY RASHES OR OPEN SORES? NO . ALLERGIC/IMMUNO: ARE YOU ALLERGIC TO IV DYE? YES . ANY NEW ALLERGIES? NO . PSYCHIATRIC: DO YOU HAVE THOUGHTS OF HURTING YOURSELF OR SOMEONE ELSE? NO . ARE YOU ABUSED, NEGLECTED, OR IN AN UNSAFE ENVIRONMENT? NO . ENDOCRINOLOGY: ARE YOU DIABETIC? NO . OTHER: DO YOU NEED ANY PRESCRIPTIONS? YES- TIZANIDINE, HYDROCODONE . IF YES, PLEASE LIST: ____TIZANIDINE, HYDOCODONE . ANY NEW PROBLEMS WITH YOUR MEDICATIONS? NO . WHEN DID YOU LAST EAT? ____ . WHEN DID YOU LAST DRINK? ____ . WHAT DID YOU LAST DRINK? ____ . NAME OF PERSON DRIVING YOU HOME? ____ . DO YOU HAVE ANY OTHER QUESTIONS OR CONCERNS YES- PATIENT STATES SHE HAS HAD INCREASED PAIN BEEN AFTER LOOSING WEIGHT, STATES SHE HAS ALSO BEEN MORE ACTIVE . VITAL SIGNS WT 223.4 LBS, HT 66 IN, BMI 36.05 INDEX, BP 140/92 MM HG, HR 80 /MIN, RR 18 /MIN, TEMP 97.7 F, OXYGEN SAT % 97%, SAFE IN ENV? (Y/N) YES, NA INITIALS OH 13:36, REVIEWED BY: HOWARD. EXAMINATION GENERAL EXAMINATION: GENERALNO ACUTE DISTRESS, WELL NOURISHED AND HYDRATED. PSYCHAPPROPRIATE MOOD AND AFFECT . LUNGS:CLEAR TO AUSCULTATION BILATERALLY, NO WHEEZES, RHONCHI, RALES. HEART:NO MURMURS, REGULAR RATE AND RHYTHM. ASSESSMENTS INTERVERTEBRAL DISC DISORDER WITH RADICULOPATHY OF LUMBAR REGION - M51.16 (PRIMARY) TREATMENT INTERVERTEBRAL DISC DISORDER WITH RADICULOPATHY OF LUMBAR REGION CLINICAL NOTES: 34 YEAR OLD FEMALE IN FOR CHRONIC PAIN FOLLOW UP. GIVEN PRESENTING SYMPTOMS AND RESULTS OF PHYSICAL EXAMINATION RECOMMENDED CONTINUAITON OF CURRENT MEDICATION REGIMEN WITH FOLLOW UP IN 2 MONTHS. PATIENT HAS EXPRESSED UNDERSTANDING OF AND WAS IN AGREEMENT WITH TREATMENT PLAN. GIVEN TIME TO ASK QUESTIONS AND EXPRESS CONCERNS. , ISTOP REGISTRY REVIEWED AND DEMONSTRATES COMPLLIANCE. (REF #[id number] ) BRINGS IN MEDICATIONS WHICH IS APPROPRIATE FOR WHAT WAS DISPENSED. RECENT URINE TOXICOLOGY REVIEWED. NO UNAUTHORIZED MEDICATIONS. NO ILLICIT SUBSTANCES AND PRESCRIBED MEDICATIONS WERE PRESENT. PROCEDURE CODES FA211 ESTABILISHED PATIENT [facility] CHARGE DISPOSITION & COMMUNICATION FOLLOW UP 2 MONTHS (REASON: CHRONIC PAIN ) ELECTRONICALLY SIGNED BY ROSA DÍAZ ON 06/29/2019 AT 02:03 PM EDT DISCLAIMER : THIS IS A VISIT SUMMARY EXTRACTED FROM THE [employer] CHART. IT IS NOT A COPY OF THE [employer] PROGRESS NOTE. LIZBETH
== END ==
LOC: M PAIN 14:30
PROVIDERS: ATTEND Family Medicine
DX: M51.16 Intervertebral disc disorders with radiculopathy, lumbar region (principal); G89.29 Other chronic pain; M19.90 Unspecified osteoarthritis, unspecified site; Z86.59 Personal history of other mental and behavioral disorders; G43.909 Migraine, unspecified, not intractable, without status migrainosus; M41.9 Scoliosis, unspecified; Z88.0 Allergy status to penicillin; Z88.5 Allergy status to narcotic agent; Z91.041 Radiographic dye allergy status; Z79.899 Other long term (current) drug therapy

== ENCOUNTER → 2019-07-02 | Outpatient (CLI) | payer OTHER ==
--- NOTE | 2019-07-02 10:40 | REP ---
REASON: Right upper quadrant pain. COMPARISON: 12/24/2018, which showed fatty infiltration of the liver. Multiple ultrasonographic image of the liver again show diffuse increased echoes throughout the hepatic parenchymal without evidence of a mass or ductal dilatation. The common bile duct measures 5 mm. Multiple ultrasonographic image of the gallbladder show no abnormalities. There are no choleliths. There is no pericholecystic edema. There is no abnormal gallbladder wall thickening. The imaged portion of the pancreas and right kidney are unchanged and again seen to be within normal limits. IMPRESSION: Diffuse fatty infiltration of the liver, status quo. No acute disease or significant change from the prior exam. Electronically Signed by Siva Dixon DO 07/02/2019 12:27 P
== END ==
LOC: M RAD 07:56
PROVIDERS: ATTEND Surgery
DX: K76.0 Fatty (change of) liver, not elsewhere classified (principal); R10.11 Right upper quadrant pain

== ENCOUNTER 2019-07-25 11:50 | Emergency (ER) | payer OTHER ==
[~2019-07-25] VITALS: Ht 167.6 cm; Wt 102.3 kg
[2019-07-25] MEDS ORDERED: TRIA37.53 (12:01)
[2019-07-25] MEDS ORDERED: NS 1,000 ML IV ONE (12:15)
[2019-07-25] MEDS ORDERED: PANTOPRAZOLE 40MG INJ (PROTONIX) (C9113) IV ONE (12:15)
[2019-07-25] MEDS ORDERED: GI COCKTAIL 50ML BTL(HYOSCYAMINE/MAALOX/LIDOCAINE VISCOUS)(1:3:1) PO ONE (12:15)
[2019-07-25 12:40] LABS: ALBUMIN 3.8 GM/DL (3.2-5.2); ALT/SGPT 91 U/L (12-78); AMYLASE 26 U/L (25-115); BILIRUBIN,DIRECT 0.1 MG/DL (0.0-0.2); BILIRUBIN,TOTAL 0.4 MG/DL (0.2-1.0); BLOOD UREA NITROGEN 11 MG/DL (7-18); CALCIUM LEVEL 8.9 MG/DL (8.5-10.1); CARBON DIOXIDE LEVEL 24 MEQ/L (21-32); CHLORIDE LEVEL 102 MEQ/L (98-107); CK-MB VALUE MASS < 1.0 NG/ML (<3.6); CPK CREATINE PHOSPHOKINASE 65 U/L (26-192); CREATININE FOR GFR 0.76 MG/DL (0.55-1.30); GLOMERULAR FILTRATION RATE > 60.0 (>60); GLUCOSE, FASTING 151 MG/DL (70-100); LIPASE 119 U/L (73-393); MB/CK RELATIVE INDEX 1.54 (< OR =4); POTASSIUM SERUM 3.8 MEQ/L (3.5-5.1); SODIUM LEVEL 138 MEQ/L (136-145); TOTAL PROTEIN 7.3 GM/DL (6.4-8.2); TROPONIN I < 0.02 NG/ML (< 0.10)
[2019-07-25 12:43] LABS: BASO % 0.4 % (0.0-1.0); EOS # 0.1 10^3/uL (0.0-0.5); EOS % 1.5 % (0.0-3.0); HEMATOCRIT 38.9 % (36.0-47.0); HEMOGLOBIN 13.6 g/dl (12.0-15.5); LYMPH # 3.3 10^3/uL (1.5-5.0); LYMPH % 40.9 % (24.0-44.0); MEAN CORPUSCULAR HEMOGLOBIN 31.5 pg (27.0-33.0); MONO # 0.5 10^3/uL (0.0-0.8); MONO % 6.5 % (0.0-5.0); PLATELET COUNT, AUTOMATED 232 10^3/uL (150-450); RED BLOOD COUNT 4.32 10^6/uL (4.00-5.40)
[2019-07-25 12:44] LABS: INR 0.94; PROTHROMBIN TIME 12.3 SECONDS (11.8-14.0)
--- NOTE | 2019-07-25 13:12 | REP ---
Clinical: Lower chest and abdominal pain . Comparison: 10/10/2018 . Technique: PA and lateral. Findings: The mediastinum and cardiac silhouette are normal. The lung gardner are clear and without acute consolidation, effusion, or pneumothorax. The skeletal structures are intact and normal. Impression: 1. No acute cardiopulmonary process. Electronically Signed by Jared Moser MD 07/25/2019 01:02 P
[2019-07-25] MEDS ORDERED: LOPE2TAB12 PO (13:54)
[2019-07-25] MEDS ORDERED: MACR100C43 PO (13:54)
[2019-07-25 14:19] VITALS: BP 113/73
--- NOTE | 2019-07-25 17:14 | ECGEPIP ---
[facility] - ED Test Date: 2019-07-25 Pat Name: EDOUARD ALCALA Department: Room: - Gender: Female Concrete Pipe Maker: AMBROCIO : 1985 Requested By: FLORY Mayer Order Number: [id number] Reading MD: Mellisa Day Measurements Intervals [place] Rate: 88 P: 29 AK: 177 QRS: -39 QRSD: 96 T: -9 QT: 376 QTc: 457 Interpretive Statements SINUS RHYTHM MARKED LEFT AXIS DEVIATION INCOMPLETE RIGHT BUNDLE BRANCH BLOCK POSSIBLE ANTERIOR MYOCARDIAL INFARCTION, OF INDETERMINATE AGE MODERATE T-WAVE ABNORMALITY, CONSIDER LATERAL ISCHEMIA INCREASED RATE 02/08/19 Electronically Signed on 07-25-2019 17:14:00 EDT by Mellisa Day
== END 2019-07-25 14:34 | disposition home or self-care (01) ==
LOC: M ED 11:50
DX: N39.0 Urinary tract infection, site not specified (principal); K21.9 Gastro-esophageal reflux disease without esophagitis; K27.9 Peptic ulcer, site unspecified, unspecified as acute or chronic, without hemorrhage or perforation; I25.10 Atherosclerotic heart disease of native coronary artery without angina pectoris; Z79.899 Other long term (current) drug therapy; Z88.0 Allergy status to penicillin; Z88.5 Allergy status to narcotic agent; Z91.040 Latex allergy status
CPT/HCPCS: 71046; 80048; 80076; 81001; 82150; 82550; 82553; 83690; 85025; 85610; 87088; 87186; 93005; 93041; 96361; 96374; 99285; C9113

== ENCOUNTER → 2019-07-30 | Outpatient (REF) | payer OTHER ==
[~2019-07-30] MED LIST changes: +LOPE2TAB12 PO; +TRIA37.53
[2019-07-30 16:05] LABS: BASO % 0.4 % (0.0-1.0); EOS # 0.1 10^3/uL (0.0-0.5); EOS % 1.8 % (0.0-3.0); HEMATOCRIT 37.3 % (36.0-47.0); HEMOGLOBIN 12.6 g/dl (12.0-15.5); LYMPH # 2.6 10^3/uL (1.5-5.0); MEAN CORPUSCULAR HEMOGLOBIN 31.1 pg (27.0-33.0); MEAN CORPUSCULAR HGB CONC 33.8 g/dl (32.0-36.5); MEAN CORPUSCULAR VOLUME 92.1 fl (80.0-96.0); MONO # 0.5 10^3/uL (0.0-0.8); MONO % 6.8 % (0.0-5.0); NEUTROPHILS # 3.4 10^3/uL (1.5-8.5); PLATELET COUNT, AUTOMATED 244 10^3/uL (150-450); RED BLOOD COUNT 4.05 10^6/uL (4.00-5.40); WHITE BLOOD COUNT 6.7 10^3/uL (4.0-10.0)
[2019-07-30 16:31] LABS: C REACTIVE PROTEIN QUANTITATIV < 0.30 MG/DL (0.00-0.30); RHEUMATOID FACTOR QUANT < 10.0 IU/ML (<15.0); URIC ACID 6.8 MG/DL (2.6-6.0)
[2019-07-30 16:57] LABS: ERYTHROCYTE SEDIMENTATION RATE 9 mm/hr (0-20)
[2019-08-07 00:06] LABS: ANTINUCLEAR ANTIBODIES DIRECT Negative (Negative); HLA-B27 Negative (.); Lyme Disease IgG Ab 18 kDa Ban Absent (.); Lyme Disease IgG Ab 23 kDa Ban Absent (.); Lyme Disease IgG Ab 28 kDa Ban Absent (.); Lyme Disease IgG Ab 30 kDa Ban Absent (.); Lyme Disease IgG Ab 39 kDa Ban Absent (.); Lyme Disease IgG Ab 41 kDa Ban Absent (.); Lyme Disease IgG Ab 45 kDa Ban Absent (.); Lyme Disease IgG Ab 58 kDa Ban Absent (.); Lyme Disease IgG Ab 66 kDa Ban Absent (.); Lyme Disease IgG Ab 93 kDa Ban Absent (.); Lyme Disease IgG West Blot Int Negative (.); Lyme Disease IgG/IgM Antibodie <0.91 ISR (0.00-0.90); Lyme Disease IgM Ab 23 kDa Ban Absent (.); Lyme Disease IgM Ab 39 kDa Ban Absent (.); Lyme Disease IgM Ab 41 kDa Ban Absent (.); Lyme Disease IgM Ab Quantitati 0.97 index (0.00-0.79); Lyme Disease IgM West Blot Int Negative (.)
== END ==
LOC: M LABDRAW1 15:38
PROVIDERS: ATTEND Physician Assistant
DX: M54.2 Cervicalgia (principal)

== ENCOUNTER → 2019-07-31 | Outpatient (CLI) | payer OTHER ==
--- NOTE | 2019-07-31 10:43 | REP ---
HIDA WITH GALLBLADDER EJECTION FRACTION: Following the intravenous administration of 6.6 millicuries technetium 99m mebrofenin, multiple images of the right upper quadrant are performed for 1 hour. Gallbladder is visualized at 10 minutes post injection and there is biliary to bowel transit at 10 minutes post injection, with no scintigraphic evidence of cholecystitis. At the 1-hour indira, 8 ounces of Ensure Enlive is ingested and further imaging performed for 1 hour. Gallbladder activity is measured. The gallbladder ejection fraction is 39%, which is normal. IMPRESSION: Normal gallbladder ejection fraction of 39%. Electronically Signed by Zurdo Zuniga MD 08/01/2019 10:51 A
== END ==
LOC: M RAD 07:19
PROVIDERS: ATTEND Surgery
DX: R10.11 Right upper quadrant pain (principal)
CPT/HCPCS: 78227; A9537; J2805

== ENCOUNTER 2019-09-11 14:37 | Emergency (ER) | payer OTHER ==
[~2019-09-11] VITALS: Ht 167.6 cm; Wt 104.5 kg
[2019-09-11] MEDS ORDERED: KETOROLAC 30 MG/ML VIAL (J1885) IV ONE (15:45)
[2019-09-11] MEDS ORDERED: NS 1,000 ML IV ONE (15:45)
[2019-09-11] MEDS ORDERED: diphenhydrAMINE INJ 50MG/ML VIAL (J1200) IV ONE (15:45)
[2019-09-11] MEDS ORDERED: ONDANSETRON 4MG/2ML VIAL (J2405) IV ONE (15:45)
[2019-09-11 16:09] LABS: BASO % 0.4 % (0.0-1.0); EOS # 0.1 10^3/uL (0.0-0.5); EOS % 0.8 % (0.0-3.0); HEMATOCRIT 40.4 % (36.0-47.0); HEMOGLOBIN 13.7 g/dl (12.0-15.5); LYMPH # 2.6 10^3/uL (1.5-5.0); LYMPH % 30.9 % (24.0-44.0); MEAN CORPUSCULAR HEMOGLOBIN 31.4 pg (27.0-33.0); MEAN CORPUSCULAR HGB CONC 33.9 g/dl (32.0-36.5); MEAN CORPUSCULAR VOLUME 92.4 fl (80.0-96.0); MONO # 0.6 10^3/uL (0.0-0.8); MONO % 6.9 % (0.0-5.0); NEUTROPHILS # 5.1 10^3/uL (1.5-8.5); NEUTROPHILS % 60.3 % (36.0-66.0); PLATELET COUNT, AUTOMATED 294 10^3/uL (150-450); RED BLOOD COUNT 4.37 10^6/uL (4.00-5.40); WHITE BLOOD COUNT 8.4 10^3/uL (4.0-10.0)
[2019-09-11 16:37] LABS: ALT/SGPT 67 U/L (12-78); BILIRUBIN,DIRECT < 0.1 MG/DL (0.0-0.2); BILIRUBIN,TOTAL 0.4 MG/DL (0.2-1.0); BLOOD UREA NITROGEN 10 MG/DL (7-18); CALCIUM LEVEL 9.5 MG/DL (8.5-10.1); CARBON DIOXIDE LEVEL 30 MEQ/L (21-32); CHLORIDE LEVEL 101 MEQ/L (98-107); CK-MB VALUE MASS < 1.0 NG/ML (<3.6); CPK CREATINE PHOSPHOKINASE 95 U/L (26-192); CREATININE FOR GFR 0.69 MG/DL (0.55-1.30); GLOMERULAR FILTRATION RATE > 60.0 (>60); GLUCOSE, FASTING 112 MG/DL (70-100); LIPASE 133 U/L (73-393); MB/CK RELATIVE INDEX 1.05 (< OR =4); POTASSIUM SERUM 4.3 MEQ/L (3.5-5.1); SODIUM LEVEL 139 MEQ/L (136-145); TOTAL PROTEIN 7.3 GM/DL (6.4-8.2); TROPONIN I < 0.02 NG/ML (< 0.10)
[2019-09-11 18:25] VITALS: BP 120/88
--- NOTE | 2019-09-11 18:48 | REP ---
HISTORY: Chest pain. COMPARISON: 07/25/2019. FINDINGS: The superior mediastinal structures are midline. The cardiac silhouette is unremarkable in size, shape and position. The diaphragmatic surfaces of the lungs are regular and the costophrenic angles are clear. The pulmonary gardner are clear. The imaged osseous structures are intact. IMPRESSION: There is no acute cardiopulmonary disease. Electronically Signed by Siva Dixon DO 09/11/2019 07:53 P
--- NOTE | 2019-09-12 17:19 | ECGEPIP ---
[facility] - ED Test Date: 2019-09-11 Pat Name: EDOUARD ALCALA Department: Room: - Gender: Female Fudger: : 1985 Requested By: Aurelia Garcia Order Number: [id number] Reading MD: Ryan Siddiqi Measurements Intervals [place] Rate: 83 P: 33 OK: 175 QRS: -37 QRSD: 99 T: -17 QT: 398 QTc: 469 Interpretive Statements SINUS RHYTHM MARKED LEFT AXIS DEVIATION POSSIBLE INCOMPLETE RIGHT BUNDLE BRANCH BLOCK POSSIBLE ANTERIOR MYOCARDIAL INFARCTION, OF INDETERMINATE AGE NSTTW ABNORMALITIES SIMILAR TO 07/25/19 Electronically Signed on 09-12-2019 17:19:10 EDT by Ryan Siddiqi
== END 2019-09-11 18:27 | disposition home or self-care (01) ==
LOC: M ED 14:37
DX: G43.909 Migraine, unspecified, not intractable, without status migrainosus (principal); I10 Essential (primary) hypertension; I44.4 Left anterior fascicular block; K76.0 Fatty (change of) liver, not elsewhere classified; Z79.899 Other long term (current) drug therapy; Z88.0 Allergy status to penicillin; Z88.5 Allergy status to narcotic agent; Z91.041 Radiographic dye allergy status
CPT/HCPCS: 71046; 80048; 80076; 81001; 82550; 82553; 83690; 84702; 85025; 93005; 96361; 96374; 96375; 99284; J1200; J1885; J2405

== ENCOUNTER → 2019-10-01 | Outpatient (CLI) | payer OTHER ==
--- NOTE | 2019-10-01 16:21 | REP ---
Four views right ankle: 10/01/2019. Indication: Right ankle pain. Comparison: None. Findings: There is no acute fracture, subluxation or dislocation. The joint space height is maintained. No erosive osseous lesions are detected. No significant joint effusion is present. Impression: No fracture or additional acute osseous pathology. Electronically Signed by Tyler Salmeron DO 10/01/2019 04:12 P
== END ==
LOC: M RAD 14:31
PROVIDERS: ATTEND Family Medicine
DX: M77.51 Other enthesopathy of right foot and ankle (principal)

== ENCOUNTER 2019-10-06 15:24 | Emergency (ER) | payer OTHER ==
[~2019-10-06] VITALS: Ht 167.6 cm; Wt 104.5 kg
[2019-10-06 15:26] VITALS: BP 142/63
== END 2019-10-06 18:25 | disposition home or self-care (01) ==
LOC: M ED 15:24
DX: Z46.89 Encounter for fitting and adjustment of other specified devices (principal); F17.200 Nicotine dependence, unspecified, uncomplicated; K21.9 Gastro-esophageal reflux disease without esophagitis; I10 Essential (primary) hypertension; Z79.899 Other long term (current) drug therapy; Z88.0 Allergy status to penicillin; Z88.6 Allergy status to analgesic agent; Z91.041 Radiographic dye allergy status

== ENCOUNTER → 2019-10-24 | Outpatient (CLI) | payer OTHER, MEDICAID ==
--- NOTE | 2019-10-26 01:53 | ECWPNPC ---
PATIENT NAME: EDOUARD ALCALA : 1985 GENDER: FEMALE VISIT DATE: 10/24/2019 DISCHARGE DATE: 10/24/19 1428 VISIT LOCKED DATE TIME: PHYSICIAN: JENNIFER ROBLES RESOURCE: JENNIFER ROBLES REASON FOR APPOINTMENT 1. CHRONIC PAIN HISTORY OF PRESENT ILLNESS HISTORY OF PRESENT ILLNESS: PAIN THE PATIENT DESCRIBES THE PAIN... 34-YEAR-OLD FEMALE IN FOR CHRONIC PAIN FOLLOW-UP. SHE RATES HER PAIN CURRENTLY AT A 10 OUT OF 10 AND DESCRIBES IT ACHING, BURNING, SORE, TENDER, SHARP, STABBING, AND SHOOTING. SHE IS CURRENTLY TAKING NORCO 5/325 MG AND FEELS THIS IS INEFFECTIVE IN MANAGING HER PAIN SYMPTOMS. FALL RISK SCREENING: SCREENING :NO FALLS REPORTED IN THE LAST YEAR CURRENT MEDICATIONS TAKING CLONIDINE HCL 0.1 MG TABLET 1 TABLET AT BEDTIME ORALLY TID PRN TAKING PRAZOSIN HCL 2 MG CAPSULE 1-2 CAPSULE AT BEDTIME ORALLY ONCE A DAY PRN TAKING PROTONIX 40 MG TABLET DELAYED RELEASE 1 TABLET ORALLY ONCE A DAY TAKING VITAMIN D 2000 UNIT CAPSULE 1 CAPSULE ORALLY ONCE A DAY TAKING TYLENOL 325 MG TABLET 2 TABLETS NEEDED ORALLY EVERY 6 HRS TAKING DESVENLAFAXINE SUCCINATE ER 100 MG TABLET EXTENDED RELEASE 24 HOUR 1 TABLET ORALLY ONCE A DAY TAKING ALPRAZOLAM 1 MG TABLET 1 TABLET ORALLY TWICE A DAY TAKING CARAFATE 1 GM TABLET 1 TABLET ON AN EMPTY STOMACH ORALLY QID TAKING NORCO 5-325 MG TABLET 1 TABLET NEEDED ORALLY (CHRONIC PAIN CODE D) DAILY PRN PAIN MDD=1 TAKING TIZANIDINE HCL 4 MG TABLET 1 TABLET NEEDED ORALLY BEFORE BEDTIME MAY REPEAT IN 5 HRS MDD2 TAKING LASIX 40 MG TABLET 1 TABLET ORALLY ONCE A DAY, NOTES: NOT SURE OF DOSE NOT-TAKING BUSPIRONE HCL 5 MG TABLET 1 TABLET ORALLY TWICE A DAY NOT-TAKING MICROGESTIN 1.5/30 1.5-30 MG-MCG TABLET 1 TABLET ORALLY ONCE A DAY NOT-TAKING HYDROXYZINE HCL 50 MG TABLET 1 TABLET NEEDED ORALLY TID NOT-TAKING FLUCONAZOLE 150 MG TABLET 1 TABLET ORALLY WEEKLY NOT-TAKING TRAZODONE HCL 150 MG TABLET 1 TABLET AT BEDTIME ORALLY ONCE A DAY NOT-TAKING HYDROCODONE-ACETAMINOPHEN 5-325 MG TABLET 1 TABLET NEEDED ORALLY DAILY FOR PAIN MDD1 NOT-TAKING TIZANIDINE HCL 4 MG TABLET 1 ORALLY BEFORE BEDTIME MAY REPEAT IN 4HRS MDD2 NOT-TAKING VITAMIN D (ERGOCALCIFEROL) 41919 UNIT CAPSULE 1 CAPSULE ORALLY MEDICATION LIST REVIEWED AND RECONCILED WITH THE PATIENT PAST MEDICAL HISTORY MILD DISPLASIA ULCER BUSITIS CARPAL TUNNEL ARTHRITIS PTSD MIGRAINES SCOLIOSIS FATTY LIVER DISEASE ALLERGIES CONTRAST: HIVES - SIDE EFFECTS YLENOL WITH CODEINE: RASH - SIDE EFFECTS PENICILLIN (FOR ALLERGIES USE ONLY): HIVES - ALLERGY SURGICAL HISTORY NO SURGICAL HISTORY DOCUMENTED. FAMILY HISTORY FATHER: , DIAGNOSED WITH HYPERTENSION, UNSPECIFIED HEART DISEASE MOTHER: , DIABETES, HYPERTENSION, UNSPECIFIED HEART DISEASE, UNSPECIFIED CEREBRAL ARTERY OCCLUSION WITH CEREBRAL INFARCTION, OTHER MALIGNANT NEOPLASM OF UNSPECIFIED SITE SIBLINGS: DIABETES, HYPERTENSION, UNSPECIFIED HEART DISEASE PT DOES NOT KNOW FAMILY HISTORY ON FATHER\\\'S SIDE. SOCIAL HISTORY GENERAL: TOBACCO USE ARE YOU A:NONSMOKER PAIN CLINIC PFS, CLERGY, PUBLIC HEALTH REFERRALS PFS REFERRAL NEEDED?NO CLERGY REFERRAL NEEDED?NO PUBLIC HEALTH REFERRAL NEEDED?NO WAS THE PROVIDER NOTIFIED OF ANY PERTINENT INFO?NO HAS THE PATIENT BEEN EDUCATED REGARDING HIS/HER PLAN OF CARE?YES HAS THE PATIENT BEEN EDUCATED REGARDING PAIN, THE RISK FOR PAIN, THE IMPORTANCE OF EFFECTIVE PAIN MANAGEMENT, AND THE PAIN ASSESSMENT PROCESS?YES CAFFEINE CAFFEINE USE?YES HOW OFTEN AND HOW MUCH? DAILY ADVANCE DIRECTIVE ADVANCE DIRECTIVE DISCUSSED WITH PATIENT:YES DECLINED INFO AT THIS TIME LANGUAGE LANGUAGES SPOKEN:PERUVIAN NEW PATIENT PAIN DIARY FROM 0-10, WHAT LEVEL IS YOUR PAIN TODAY?8 ALCOHOL SCREENING DID YOU HAVE A DRINK CONTAINING ALCOHOL IN THE PAST YEAR?NO POINTS0 INTERPRETATIONNEGATIVE RECREATIONAL DRUG USE DRUG USE?NO LEARNING BARRIERS / SPECIAL NEEDS BARRIERS TO LEARNING?NO HEARING IMPAIRED?NO VISION IMPAIRED?NO COGNITIVELY IMPAIRED?NO READINESS TO LEARN?YES LEARNING PREFERENCES?NO LEARNING CAPABILITIES PRESENT?YES EMOTIONAL BARRIERS?NO SPECIAL DEVICES?NO PAYROLL PROFESSIONAL NEEDED?NO REVIEWED WITH PT 10/05/18 1499 Gogo SANTOS RNREVIEWED WITH PATIENT 06/28/19 1355 NLJ. HOSPITALIZATION/MAJOR DIAGNOSTIC PROCEDURE CHILDBIRTH REVIEW OF SYSTEMS REVIEWED BY: PROVIDER: STACI EATON . CONSTITUTIONAL: ANY CHANGE IN YOUR MEDICAL CONDITION? NO . CHILLS NO . FEVER NO . INFECTION: DO YOU HAVE NEW INFECTIONS? NO . DO YOU HAVE HISTORY OF MRSA? NO . MUSCULOSKELETAL: ANY NEW PATTERNS OF PAIN OR NUMBNESS? YES, RIGHT ANKLE IS WORSE . GASTROENTEROLOGY: ANY NEW CHANGE IN BOWEL CONTROL? NO . GENITOURINARY: ANY NEW CHANGE IN BLADDER CONTROL? NO . IS THERE A CHANCE YOU COULD BE ? NO . HEMATOLOGY/LYMPH: DO YOU TAKE ANY BLOOD THINNERS? (FOR EXAMPLE- COUMADIN, PLAVIX, AGGRENOX, PLATEL, PRADAXA, OR XARELTO) NO . WHEN WAS YOUR LAST DOSE? DATE: TIME: . NEUROLOGY: HAVE YOU FALLEN IN THE PAST 12 MONTHS? YES, FELL LAST MONTH DOWN STEPS FROM RIGHT KNEE WEAKNESS . ANY NEW EXTREMITY NUMBNESS OR WEAKNESS? YES, RIGHT ANKLE PAIN AND RIGHT KNEE WEAKNESS . CARDIOLOGY: DO YOU HAVE A PACEMAKER OR DEFIBRILLATOR? NO . RESPIRATORY: HAVE YOU BEEN SICK IN THE PAST WEEK? YES, URI TX'D W ABX . FEVER NO . FLU LIKE SYMPTOMS? NO . COUGH NO . INTEGUMENTARY: DO YOU HAVE ANY RASHES OR OPEN SORES? NO . ALLERGIC/IMMUNO: ARE YOU ALLERGIC TO IV DYE? YES . ANY NEW ALLERGIES? NO . PSYCHIATRIC: DO YOU HAVE THOUGHTS OF HURTING YOURSELF OR SOMEONE ELSE? NO . ARE YOU ABUSED, NEGLECTED, OR IN AN UNSAFE ENVIRONMENT? NO . ENDOCRINOLOGY: ARE YOU DIABETIC? NO . OTHER: DO YOU NEED ANY PRESCRIPTIONS? YES, PAIN MEDS AND MUSCLE RELAXER . IF YES, PLEASE LIST: ____ . ANY NEW PROBLEMS WITH YOUR MEDICATIONS? YES, MEDS BARELY EFFECTIVE PT IS WORKING MORE . WHEN DID YOU LAST EAT? ____ . WHEN DID YOU LAST DRINK? ____ . WHAT DID YOU LAST DRINK? ____ . NAME OF PERSON DRIVING YOU HOME? ____ . DO YOU HAVE ANY OTHER QUESTIONS OR CONCERNS I'M WORKING MORE AND I'M IN MORE PAIN/PLUS I FELL DOWN THE STAIRS AND HURT MY ANKLE . VITAL SIGNS WT 234.6 LBS, HT 66 IN, BMI 37.86 INDEX, BP 160/69 MM HG, HR 88 /MIN, RR 18 /MIN, TEMP 96.9 F, OXYGEN SAT % 96%, NA INITIALS AW 1302, REVIEWED BY: EM. EXAMINATION GENERAL EXAMINATION: GENERALNO ACUTE DISTRESS, WELL NOURISHED AND HYDRATED. PSYCHAPPROPRIATE MOOD AND AFFECT . LUNGS:CLEAR TO AUSCULTATION BILATERALLY, NO WHEEZES, RHONCHI, RALES. HEART:NO MURMURS, REGULAR RATE AND RHYTHM. ASSESSMENTS SPONDYLOSIS OF LUMBAR REGION WITHOUT MYELOPATHY OR RADICULOPATHY - M47.816 (PRIMARY) CHRONIC USE OF OPIATE FOR THERAPEUTIC PURPOSE - Z79.891 TREATMENT SPONDYLOSIS OF LUMBAR REGION WITHOUT MYELOPATHY OR RADICULOPATHY REFILL TIZANIDINE HCL TABLET, 4 MG, 1 TABLET NEEDED, ORALLY, BEFORE BEDTIME MAY REPEAT IN 5 HRS MDD2, 30 DAY(S), 30, REFILLS 1 INCREASE NORCO TABLET, 7.5-325 MG, 1 TABLET NEEDED, ORALLY, DAILY PRN PAIN MDD=1, 30 DAYS, 30 CLINICAL NOTES: 34-YEAR-OLD FEMALE IN FOR CHRONIC PAIN FOLLOW-UP. GIVEN PRESENTING SYMPTOMS AND RESULTS OF PHYSICAL EXAMINATION RECOMMENDED INCREASING NORCO TO 10/325 MG DAILY NEEDED FOR PAIN. FURTHER RECOMMENDED FOLLOW-UP IN 1 MONTH TO DETERMINE EFFICACY TREATMENT. PATIENT HAS EXPRESSED UNDERSTANDING OF AND WAS IN AGREEMENT WITH TREATMENT PLAN. GIVEN TIME TO ASK QUESTIONS AND EXPRESS CONCERNS., ISTOP REGISTRY REVIEWED AND DEMONSTRATES COMPLLIANCE. (REF # [id number] ) BRINGS IN MEDICATIONS WHICH IS APPROPRIATE FOR WHAT WAS DISPENSED. RECENT URINE TOXICOLOGY REVIEWED. NO UNAUTHORIZED MEDICATIONS. NO ILLICIT SUBSTANCES AND PRESCRIBED MEDICATIONS WERE PRESENT. PROCEDURE CODES FA211 ESTABILISHED PATIENT [facility] CHARGE DISPOSITION & COMMUNICATION FOLLOW UP 4 WEEKS (REASON: BACK PAIN, AND MEDICATION) ELECTRONICALLY SIGNED BY ROSA DÍAZ ON 10/25/2019 AT 01:18 PM EST DISCLAIMER : THIS IS A VISIT SUMMARY EXTRACTED FROM THE [employer] CHART. IT IS NOT A COPY OF THE [employer] PROGRESS NOTE. LIZBETH
== END ==
LOC: M PAIN 13:30
PROVIDERS: ATTEND Family Medicine
DX: M47.816 Spondylosis without myelopathy or radiculopathy, lumbar region (principal); G89.29 Other chronic pain; Z86.59 Personal history of other mental and behavioral disorders; G43.909 Migraine, unspecified, not intractable, without status migrainosus; Z88.0 Allergy status to penicillin; Z88.5 Allergy status to narcotic agent; Z91.041 Radiographic dye allergy status; Z79.899 Other long term (current) drug therapy

== ENCOUNTER → 2019-12-14 | Outpatient (CLI) | payer OTHER ==
[~2019-12-14] MED LIST changes: +HYDR-4514 PO; +METO1TAB32 PO; +MIRT1TAB PO
--- NOTE | 2019-12-14 12:36 | REP ---
Gastric emptying nuclear scintigraphy: History: Right upper quadrant abdomen pain. Nausea vomiting and bloating. Technique: 1.07 mCi of technetium-99m sulfur colloid was ingested in two scrambled eggs and 6 ounces of water and sequential anterior and posterior images are acquired for an 89-minute imaging observation period. Regions of interest are drawn around the stomach to plot gastric emptying. Scintigraphic findings: Expected T1/2 is 90 minutes. 84 % emptying is observed in this patient during the 89-minute imaging observation period, for a calculated T1/2 in this patient of 58 minutes. Impression: Normal gastric emptying. Electronically Signed by Ramesh Malcolm MD 12/14/2019 12:27 P
== END ==
LOC: M RAD 07:57
PROVIDERS: ATTEND Internal Medicine Gastroenterology
DX: R10.11 Right upper quadrant pain (principal)
CPT/HCPCS: 78264; A9541

== ENCOUNTER 2019-12-28 10:42 | Day surgery (SDC) | payer OTHER ==
[~2019-12-28] VITALS: Ht 167.6 cm; Wt 106.1 kg
[~2019-12-28 10:42] MED LIST changes: +LIDOCAINE 2% INJ 100 MG/5 ML SDV (FOR ANES.) As Ordered ONE; +NS 1,000 ML IV ONE; +propofoL 200 MG/20 ML VIAL As Ordered ONE
[2019-12-28] MEDS ORDERED: fentaNYL 100 MCG/2 ML INJECTION (J3010) As Ordered ONE (12:38)
--- NOTE | 2019-12-28 13:04 | ROOR ---
Patient Name: Edis Bateman Procedure Date: 12/28/2019 12:51 PM Date of : 1985 Age: 34 Room: [facility] Gender: Female Note Status: Finalized Procedure: Upper GI endoscopy Indications: Epigastric abdominal pain, Abdominal pain in the right upper quadrant, Follow-up of gastric ulcer Providers: Chuck TSAI MD Referring MD: EMILE HARDY MD Requesting Provider: Medicines: Monitored Anesthesia Care Complications: No immediate complications. Procedure: Pre-Anesthesia Assessment: - The heart rate, respiratory rate, oxygen saturations, blood pressure, adequacy of pulmonary ventilation, and response to care were monitored throughout the procedure. The Endoscope was introduced through the mouth, and advanced to the third part of duodenum. The upper GI endoscopy was accomplished without difficulty. The patient tolerated the procedure well. Findings: The esophagus was normal. The stomach was normal. The examined duodenum was normal. Biopsies for histology were taken with a cold forceps in the second portion of the duodenum and in the third portion of the duodenum for evaluation of celiac disease. Impression: - Normal esophagus. - Normal stomach. - Normal examined duodenum. - Biopsies were taken with a cold forceps for evaluation of celiac disease. Recommendation: - Await pathology results. - Telephone endoscopist for pathology results in 2 weeks. Chuck Tsai MD Chuck TSAI MD 12/28/2019 1:04:18 PM Electronically signed by Chuck TSAI MD Number of Addenda: 0 Note Initiated On: 12/28/2019 12:51 PM Estimated Blood Loss: Estimated blood loss: none.
--- NOTE | 2019-12-28 13:22 | ROOR ---
Patient Name: Edis Bateman Procedure Date: 12/28/2019 12:51 PM Date of : 1985 Age: 34 Room: [facility] Gender: Female Note Status: Finalized Procedure: Colonoscopy Indications: Generalized abdominal pain, Suspected irritable bowel syndrome, Change in bowel habits Providers: Chuck TSAI MD Referring MD: EMILE HARDY MD Requesting Provider: Medicines: Monitored Anesthesia Care Complications: No immediate complications. Procedure: Pre-Anesthesia Assessment: - The heart rate, respiratory rate, oxygen saturations, blood pressure, adequacy of pulmonary ventilation, and response to care were monitored throughout the procedure. The Colonoscope was introduced through the anus and advanced to 10 cm into the ileum. The colonoscopy was performed without difficulty. The patient tolerated the procedure well. The quality of the bowel preparation was good. Findings: The perianal and digital rectal examinations were normal. Small Internal Hemorrhoids. The colon (entire examined portion) appeared normal. The terminal ileum appeared normal. Retroflexion in the right colon was performed. Biopsies for histology were taken with a cold forceps for evaluation of microscopic colitis. Impression: - Small Internal Hemorrhoids. - The entire colon is normal. - The examined portion of the ileum was normal. - Biopsies were taken with a cold forceps for evaluation of microscopic colitis. - (Irritable Bowel Syndrome/IBS suspected.) Recommendation: - Use fiber, for example Citrucel, Fibercon, Konsyl or Metamucil. - Use Bentyl (dicyclomine) 20 mg PO Q 4-6 hrs PRN 30 min AC. - (the script was sent to your pharmacy on file) Chuck Tsai MD Chuck TSAI MD 12/28/2019 1:22:07 PM Electronically signed by Chuck TSAI MD Number of Addenda: 0 Note Initiated On: 12/28/2019 12:51 PM Estimated Blood Loss: Estimated blood loss: none.
[2019-12-28 13:55] VITALS: BP 158/82
== END 2019-12-28 13:54 | disposition home or self-care (01) ==
LOC: M OPP 10:42
PROVIDERS: ATTEND Internal Medicine Gastroenterology
DX: R10.84 Generalized abdominal pain (principal); R19.4 Change in bowel habit; K76.0 Fatty (change of) liver, not elsewhere classified; K21.9 Gastro-esophageal reflux disease without esophagitis; R10.11 Right upper quadrant pain; K25.9 Gastric ulcer, unspecified as acute or chronic, without hemorrhage or perforation; Z79.891 Long term (current) use of opiate analgesic; Z79.899 Other long term (current) drug therapy; Z88.0 Allergy status to penicillin; Z88.5 Allergy status to narcotic agent; Z91.041 Radiographic dye allergy status
CPT/HCPCS: 43239; 45380; 88305; J3010

== ENCOUNTER → 2020-01-12 | Outpatient (REF) | payer MEDICAID ==
[~2020-01-12] MED LIST changes: -LIDOCAINE 2% INJ 100 MG/5 ML SDV (FOR ANES.) As Ordered ONE; -NS 1,000 ML IV ONE; -propofoL 200 MG/20 ML VIAL As Ordered ONE
[2020-01-12 17:26] LABS: INFLUENZA A AMPLIFICATION NEGATIVE (NEGATIVE); INFLUENZA B AMPLIFICATION NEGATIVE (NEGATIVE)
== END ==
LOC: M LAB REF 16:35
PROVIDERS: ATTEND Physician Assistant Medical
DX: R50.9 Fever, unspecified (principal)

== ENCOUNTER → 2020-01-17 | Outpatient (REF) | payer MEDICAID | LOC: M LAB REF 11:49 | PROVIDERS: ATTEND Physician Assistant | DX: J11.1 Influenza due to unidentified influenza virus with other respiratory manifestations (principal) ==

== ENCOUNTER 2020-02-02 11:25 | Emergency (ER) | payer OTHER ==
[~2020-02-02] VITALS: Ht 167.6 cm; Wt 112.8 kg
[2020-02-02 11:26] VITALS: BP 132/81
--- NOTE | 2020-02-02 16:30 | REP ---
REASON: Cough and fever. TWO-VIEW CHEST: COMPARISON: No priors. FINDINGS: The superior mediastinal structures are midline. The cardiac silhouette is unremarkable in size, shape, and position. The diaphragmatic surfaces of the lungs are regular, and the costophrenic angles are clear. The pulmonary gardner are clear. The imaged osseous structures are intact. IMPRESSION: There is no acute cardiopulmonary disease. Unreviewed
== END 2020-02-02 14:02 | disposition home or self-care (01) ==
LOC: M ED 11:25
DX: B34.9 Viral infection, unspecified (principal); I10 Essential (primary) hypertension; K21.9 Gastro-esophageal reflux disease without esophagitis; F32.9 Major depressive disorder, single episode, unspecified; F43.10 Post-traumatic stress disorder, unspecified; Z88.0 Allergy status to penicillin; Z88.5 Allergy status to narcotic agent; Z91.041 Radiographic dye allergy status; Z79.899 Other long term (current) drug therapy

== ENCOUNTER → 2020-02-06 | Outpatient (CLI) | payer OTHER, MEDICAID ==
--- NOTE | 2020-02-07 23:22 | ECWPNPC ---
PATIENT NAME: EDOUARD ALCALA : 1985 GENDER: FEMALE VISIT DATE: 02/06/2020 DISCHARGE DATE: 02/06/20 1134 VISIT LOCKED DATE TIME: PHYSICIAN: JENNIFER ROBLES RESOURCE: JENNIFER ROBLES REASON FOR APPOINTMENT 1. BACK PAIN HISTORY OF PRESENT ILLNESS HISTORY OF PRESENT ILLNESS: PAIN THE PATIENT DESCRIBES THE PAINDURING THE LAST MONTH SEVERITY - PAIN SCORE OF8/10 LOCATIONSLOWER BACK QUALITYACHING , BURNING, SHARP, STABBING, TENDER, SORE, SHOOTING DURATIONCONTINUOUS, ALL DAY, INTERMITTENT, AWAKENS FROM SLEEEP 34-YEAR-OLD FEMALE IN FOR CHRONIC PAIN FOLLOW-UP. SHE FEELS HER MEDICATIONS ARE WORKING WELL AND DENIES MED SIDE EFFECTS AT THIS TIME. SHE RATES HER PAIN CURRENTLY AT AN 8.5 OUT OF 10 AND DESCRIBES IT ACHING, SHARP, BURNING, STABBING, SORE, SHOOTING, AND TENDER. SHE DOES ADMIT TO SOME KNEE PAIN BILATERALLY A RESULT OF A RECENT FALL AND SHE IS BEING SEEN BY ORTHOPEDICS FOR THIS. FALL RISK SCREENING: SCREENING :ONE FALL WITH INJURY IN THE PAST YEAR CURRENT MEDICATIONS TAKING PRAZOSIN HCL 2 MG CAPSULE 1-2 CAPSULE AT BEDTIME ORALLY ONCE A DAY PRN TAKING VITAMIN D 2000 UNIT CAPSULE 1 CAPSULE ORALLY ONCE A DAY TAKING TYLENOL 325 MG TABLET 2 TABLETS NEEDED ORALLY EVERY 6 HRS TAKING DESVENLAFAXINE SUCCINATE ER 100 MG TABLET EXTENDED RELEASE 24 HOUR 1 TABLET ORALLY ONCE A DAY TAKING ALPRAZOLAM 0.5 MG TABLET 1 TABLET ORALLY DAILY TAKING LASIX 40 MG TABLET 1 TABLET ORALLY ONCE A DAY, NOTES: NOT SURE OF DOSE TAKING TIZANIDINE HCL 4 MG TABLET 1 TABLET NEEDED ORALLY BEFORE BEDTIME MAY REPEAT IN 5 HRS MDD2 TAKING NORCO 7.5-325 MG TABLET 1 TABLET NEEDED ORALLY DAILY PRN PAIN MDD=1 TAKING METOPROLOL TARTRATE 25 MG TABLET 1 TABLET WITH FOOD ORALLY TWICE A DAY TAKING TRIAMTERENE-HCTZ 37.5-25 MG CAPSULE 1 CAPSULE IN THE MORNING ORALLY BID NOT-TAKING CLONIDINE HCL 0.1 MG TABLET 1 TABLET AT BEDTIME ORALLY TID PRN NOT-TAKING PROTONIX 40 MG TABLET DELAYED RELEASE 1 TABLET ORALLY ONCE A DAY NOT-TAKING CARAFATE 1 GM TABLET 1 TABLET ON AN EMPTY STOMACH ORALLY QID NOT-TAKING BUSPIRONE HCL 5 MG TABLET 1 TABLET ORALLY TWICE A DAY NOT-TAKING MICROGESTIN 1.5/30 1.5-30 MG-MCG TABLET 1 TABLET ORALLY ONCE A DAY NOT-TAKING HYDROXYZINE HCL 50 MG TABLET 1 TABLET NEEDED ORALLY TID NOT-TAKING FLUCONAZOLE 150 MG TABLET 1 TABLET ORALLY WEEKLY NOT-TAKING TRAZODONE HCL 150 MG TABLET 1 TABLET AT BEDTIME ORALLY ONCE A DAY NOT-TAKING HYDROCODONE-ACETAMINOPHEN 5-325 MG TABLET 1 TABLET NEEDED ORALLY DAILY FOR PAIN MDD1 NOT-TAKING TIZANIDINE HCL 4 MG TABLET 1 ORALLY BEFORE BEDTIME MAY REPEAT IN 4HRS MDD2 NOT-TAKING VITAMIN D (ERGOCALCIFEROL) 52373 UNIT CAPSULE 1 CAPSULE ORALLY MEDICATION LIST REVIEWED AND RECONCILED WITH THE PATIENT PAST MEDICAL HISTORY MILD DISPLASIA ULCER BUSITIS CARPAL TUNNEL ARTHRITIS PTSD MIGRAINES SCOLIOSIS FATTY LIVER DISEASE ALLERGIES CONTRAST: HIVES - SIDE EFFECTS YLENOL WITH CODEINE: RASH - SIDE EFFECTS PENICILLIN (FOR ALLERGIES USE ONLY): HIVES - ALLERGY SURGICAL HISTORY NO SURGICAL HISTORY DOCUMENTED. FAMILY HISTORY FATHER: , DIAGNOSED WITH HYPERTENSION, UNSPECIFIED HEART DISEASE MOTHER: , OTHER MALIGNANT NEOPLASM OF UNSPECIFIED SITE, DIABETES, HYPERTENSION, UNSPECIFIED HEART DISEASE, UNSPECIFIED CEREBRAL ARTERY OCCLUSION WITH CEREBRAL INFARCTION SIBLINGS: DIABETES, HYPERTENSION, UNSPECIFIED HEART DISEASE PT DOES NOT KNOW FAMILY HISTORY ON FATHER\\\'S SIDE. SOCIAL HISTORY GENERAL: TOBACCO USE ARE YOU A:NONSMOKER PAIN CLINIC PFS, CLERGY, PUBLIC HEALTH REFERRALS PFS REFERRAL NEEDED?NO CLERGY REFERRAL NEEDED?NO PUBLIC HEALTH REFERRAL NEEDED?NO WAS THE PROVIDER NOTIFIED OF ANY PERTINENT INFO?NO HAS THE PATIENT BEEN EDUCATED REGARDING HIS/HER PLAN OF CARE?YES HAS THE PATIENT BEEN EDUCATED REGARDING PAIN, THE RISK FOR PAIN, THE IMPORTANCE OF EFFECTIVE PAIN MANAGEMENT, AND THE PAIN ASSESSMENT PROCESS?YES CAFFEINE CAFFEINE USE?YES HOW OFTEN AND HOW MUCH? DAILY ADVANCE DIRECTIVE ADVANCE DIRECTIVE DISCUSSED WITH PATIENT:YES DECLINED INFO AT THIS TIME LANGUAGE LANGUAGES SPOKEN:LITHUANIAN NEW PATIENT PAIN DIARY FROM 0-10, WHAT LEVEL IS YOUR PAIN TODAY?8 ALCOHOL SCREENING DID YOU HAVE A DRINK CONTAINING ALCOHOL IN THE PAST YEAR?NO POINTS0 INTERPRETATIONNEGATIVE RECREATIONAL DRUG USE DRUG USE?NO LEARNING BARRIERS / SPECIAL NEEDS BARRIERS TO LEARNING?NO HEARING IMPAIRED?NO VISION IMPAIRED?NO COGNITIVELY IMPAIRED?NO READINESS TO LEARN?YES LEARNING PREFERENCES?NO LEARNING CAPABILITIES PRESENT?YES EMOTIONAL BARRIERS?NO SPECIAL DEVICES?NO VALET RUNNER NEEDED?NO REVIEWED WITH PT 10/05/18 1559 B. SANTOS RNREVIEWED WITH PATIENT 06/28/19 9352 NLJ. HOSPITALIZATION/MAJOR DIAGNOSTIC PROCEDURE CHILDBIRTH REVIEW OF SYSTEMS REVIEWED BY: PROVIDER: STACI EATON . CONSTITUTIONAL: ANY CHANGE IN YOUR MEDICAL CONDITION? NO . CHILLS NO . FEVER NO . INFECTION: DO YOU HAVE NEW INFECTIONS? NO . DO YOU HAVE HISTORY OF MRSA? NO . MUSCULOSKELETAL: ANY NEW PATTERNS OF PAIN OR NUMBNESS? NO . GASTROENTEROLOGY: ANY NEW CHANGE IN BOWEL CONTROL? NO . GENITOURINARY: ANY NEW CHANGE IN BLADDER CONTROL? NO . IS THERE A CHANCE YOU COULD BE ? NO . HEMATOLOGY/LYMPH: DO YOU TAKE ANY BLOOD THINNERS? (FOR EXAMPLE- COUMADIN, PLAVIX, AGGRENOX, PLATEL, PRADAXA, OR XARELTO) NO . WHEN WAS YOUR LAST DOSE? DATE: TIME: . NEUROLOGY: HAVE YOU FALLEN IN THE PAST 12 MONTHS? YES, SLIPPED ON ICE 2 MONTHS AGO . ANY NEW EXTREMITY NUMBNESS OR WEAKNESS? YES, BOTH ARMS HAS BEEN GOING NUMB FREQUENTLY . CARDIOLOGY: DO YOU HAVE A PACEMAKER OR DEFIBRILLATOR? NO . RESPIRATORY: HAVE YOU BEEN SICK IN THE PAST WEEK? YES, BRONCHITIS 2 WEEKS AGO AND FLU 2 WEEKS BEFORE . FEVER NO . FLU LIKE SYMPTOMS? NO . COUGH NO . INTEGUMENTARY: DO YOU HAVE ANY RASHES OR OPEN SORES? NO . ALLERGIC/IMMUNO: ARE YOU ALLERGIC TO IV DYE? YES . ANY NEW ALLERGIES? NO . PSYCHIATRIC: DO YOU HAVE THOUGHTS OF HURTING YOURSELF OR SOMEONE ELSE? NO . ARE YOU ABUSED, NEGLECTED, OR IN AN UNSAFE ENVIRONMENT? NO . ENDOCRINOLOGY: ARE YOU DIABETIC? NO . OTHER: DO YOU NEED ANY PRESCRIPTIONS? YES, REFILL FOR TIZANIDINE AND HYDROCODONE . IF YES, PLEASE LIST: ____ . ANY NEW PROBLEMS WITH YOUR MEDICATIONS? NO . WHEN DID YOU LAST EAT? ____ . WHEN DID YOU LAST DRINK? ____ . WHAT DID YOU LAST DRINK? ____ . NAME OF PERSON DRIVING YOU HOME? ____ . DO YOU HAVE ANY OTHER QUESTIONS OR CONCERNS NO . VITAL SIGNS WT 242.0 LBS, HT 66 IN, BMI 39.06 INDEX, BP 123/80 MM HG, HR 82 /MIN, RR 18 /MIN, TEMP 98.6 F, OXYGEN SAT % 97%, SAFE IN ENV? (Y/N) YES, NA INITIALS AW 1057, REVIEWED BY: ANA LOYD LPN. EXAMINATION GENERAL EXAMINATION: GENERALNO ACUTE DISTRESS, WELL NOURISHED AND HYDRATED. PSYCHAPPROPRIATE MOOD AND AFFECT . LUNGS:CLEAR TO AUSCULTATION BILATERALLY, NO WHEEZES, RHONCHI, RALES. HEART:NO MURMURS, REGULAR RATE AND RHYTHM. ASSESSMENTS SPONDYLOSIS OF LUMBAR REGION WITHOUT MYELOPATHY OR RADICULOPATHY - M47.816 (PRIMARY) TREATMENT SPONDYLOSIS OF LUMBAR REGION WITHOUT MYELOPATHY OR RADICULOPATHY REFILL NORCO TABLET, 7.5-325 MG, 1 TABLET NEEDED, ORALLY, DAILY PRN PAIN MDD=1, 30 DAYS, 30 REFILL TIZANIDINE HCL TABLET, 4 MG, 1, ORALLY, BEFORE BEDTIME MAY REPEAT IN 4HRS MDD2, 30 DAY(S), 60, REFILLS 2 CLINICAL NOTES: 34-YEAR-OLD FEMALE IN FOR CHRONIC PAIN FOLLOW-UP. DISCUSSED KNEE PAIN WITH PATIENT AND RECOMMENDED SHE ASK ORTHOPEDICS ABOUT POTENTIALLY PRESCRIBING DICLOFENAC GEL. PATIENT ADMITTED TO TAKING MORE TYLENOL IN A DAY THEN RECOMMENDED AND WAS REMINDED OF THE IMPROTANCE OF STICKING WITH THE PRESCRIBED DOSAGE. GIVEN PRESENTING SYMPTOMS AND RESULTS OF PHYSICAL EXAMINATION RECOMMENDED CONTINUATION OF CURRENT MEDICATION REGIMEN AND FOLLOW-UP IN 3 MONTHS. PATIENT EXPRESSED UNDERSTANDING OF AND WAS IN AGREEMENT WITH TREATMENT PLAN. GIVEN TIME TO ASK QUESTIONS AND EXPRESS CONCERNS., ISTOP REGISTRY REVIEWED AND DEMONSTRATES COMPLLIANCE. (REF # [id number] ) BRINGS IN MEDICATIONS WHICH IS APPROPRIATE FOR WHAT WAS DISPENSED. RECENT URINE TOXICOLOGY REVIEWED. NO UNAUTHORIZED MEDICATIONS. NO ILLICIT SUBSTANCES AND PRESCRIBED MEDICATIONS WERE PRESENT. PROCEDURE CODES FA211 ESTABILISHED PATIENT [facility] CHARGE DISPOSITION & COMMUNICATION FOLLOW UP 3 MONTHS (REASON: BACK PAIN) ELECTRONICALLY SIGNED BY ROSA DÍAZ ON 02/07/2020 AT 09:32 AM EDT DISCLAIMER : THIS IS A VISIT SUMMARY EXTRACTED FROM THE [employer] CHART. IT IS NOT A COPY OF THE [employer] PROGRESS NOTE. LIZBETH
== END ==
LOC: M PAIN 11:00
PROVIDERS: ATTEND Family Medicine
DX: M47.816 Spondylosis without myelopathy or radiculopathy, lumbar region (principal); G89.29 Other chronic pain; Z86.59 Personal history of other mental and behavioral disorders; G43.909 Migraine, unspecified, not intractable, without status migrainosus; Z88.0 Allergy status to penicillin; Z88.5 Allergy status to narcotic agent; Z91.041 Radiographic dye allergy status; Z79.899 Other long term (current) drug therapy

== ENCOUNTER → 2020-05-19 | Outpatient (CLI) | payer OTHER, MEDICAID ==
--- NOTE | 2020-05-21 05:01 | ECWPNPC ---
PATIENT NAME: EDOUARD ALCALA : 1985 GENDER: FEMALE VISIT DATE: 05/19/2020 DISCHARGE DATE: 05/19/20 1150 VISIT LOCKED DATE TIME: PHYSICIAN: JENNIFER ROBLES RESOURCE: JENNIFER ROBLES REASON FOR APPOINTMENT 1. BACK PAIN HISTORY OF PRESENT ILLNESS GENERAL: - 34-YEAR-OLD FEMALE IN FOR CHRONIC PAIN FOLLOW-UP. SHE RATES HER PAIN CURRENTLY AT A 10 OUT OF 10 AND DESCRIBES IT ACHING, BURNING, AND CONTINUOUS. SHE FEELS HER MEDICATIONS ARE HELPFUL BUT DOES ADMIT TO WORKING MORE AND THEREFORE EXPERIENCING INCREASED PAIN. FALL RISK SCREENING: SCREENING :NO FALLS REPORTED IN THE LAST YEAR PAIN SCREENING: PATIENT HAS A COMPLAINT OF ACUTE OR CHRONIC PAIN :YES LOCATION OF PAIN:MID BACK, LOW BACK INTENSITY OF PAIN (SCALE OF 1 TO 10):10 WHAT DOES YOUR PAIN FEEL LIKE:ACHING, BURNING, CONTINOUS, SHARP, STABBING, TENDER, THROBBING, SORE, SHOOTING DURATION:CONTINOUS, CONSTANT, ALL DAY PAIN IS INCREASED BY:ACTIVITIES, PROLONGED STANDING INCLUDING INTERCOURSE PAIN IS DECREASED BY:USE OF PAIN MEDICATIONS TYLENOL PAIN HAS INTERFERED WITH THE FOLLOWING:MOOD, HOUSEWORK, RELATIONSHIP WITH OTHERS, ENJOYMENT OF LIFE PLAN/GOALS/TREATMENT/INTERVENTION/FOLLOW UP:SEE PLAN NURSING NOTE: -. PAIN CENTER INTAKE QUESTIONS: DO YOU HAVE A HISTORY OF MRSA? :NO DO YOU TAKE A BLOOD THINNERS? :NO DO YOU HAVE ANY BLEEDING DISORDERS? :NO ANY NEW NUMBNESS OR WEAKNESS IN YOUR LEGS OR ARMS? :NO ANY PACEMAKER,DEFIBRILLATOR, OR DORSAL COLUMN STIMULATOR? :NO DO YOU HAVE ANY RASHES OR OPEN SORES? :NO ARE YOU ALLERGIC TO IV DYE? :YES ARE YOU DIABETIC? :NO ANY NEW PROBLEMS WITH YOUR MEDICATIONS? :NO HAVE YOU RECEIVED A VACCINE IN THE PAST 30 DAYS? :NO DO YOU PLAN TO RECEIVE A VACCINE IN THE NEXT 21 DAYS? :NO DO YOU NEED ANY PRESCRIPTION? :YES NORCO AND TIZANIDINE DO YOU TAKE ANY IMMUNOSUPPRESSIVE MEDICATIONS? :NO IS THERE A CHANCE YOU COULD BE ? :NO ARE YOU BREAST FEEDING? :NO CURRENT MEDICATIONS TAKING PRAZOSIN HCL 2 MG CAPSULE 1-2 CAPSULE AT BEDTIME ORALLY ONCE A DAY PRN TAKING VITAMIN D 2000 UNIT CAPSULE 1 CAPSULE ORALLY ONCE A DAY TAKING TYLENOL 325 MG TABLET 2 TABLETS NEEDED ORALLY EVERY 6 HRS TAKING DESVENLAFAXINE SUCCINATE ER 100 MG TABLET EXTENDED RELEASE 24 HOUR 1 TABLET ORALLY ONCE A DAY TAKING LASIX 40 MG TABLET 1 TABLET ORALLY ONCE A DAY, NOTES: NOT SURE OF DOSE TAKING TIZANIDINE HCL 4 MG TABLET 1 TABLET NEEDED ORALLY BEFORE BEDTIME MAY REPEAT IN 5 HRS MDD2 TAKING METOPROLOL TARTRATE 25 MG TABLET 1 TABLET WITH FOOD ORALLY TWICE A DAY TAKING TRIAMTERENE-HCTZ 37.5-25 MG CAPSULE 1 CAPSULE IN THE MORNING ORALLY BID TAKING NORCO 7.5-325 MG TABLET 1 TABLET NEEDED ORALLY DAILY PRN PAIN MDD=1 TAKING TIZANIDINE HCL 4 MG TABLET 1 ORALLY BEFORE BEDTIME MAY REPEAT IN 4HRS MDD2 TAKING DOXYCYCLINE 40 MG CAPSULE DELAYED RELEASE 1 CAPSULE IN THE MORNING ON AN EMPTY STOMACH ORALLY ONCE A DAY, NOTES: UNSURE OF DOSAGE TAKING HYDROXYZINE HCL 50 MG TABLET 1 TABLET NEEDED ORALLY EVERY 6 HRS TAKING ZOLPIDEM TARTRATE 10 MG TABLET 1 TABLET AT BEDTIME NEEDED ORALLY ONCE A DAY NOT-TAKING ALPRAZOLAM 0.5 MG TABLET 1 TABLET ORALLY DAILY NOT-TAKING CLONIDINE HCL 0.1 MG TABLET 1 TABLET AT BEDTIME ORALLY TID PRN NOT-TAKING PROTONIX 40 MG TABLET DELAYED RELEASE 1 TABLET ORALLY ONCE A DAY NOT-TAKING CARAFATE 1 GM TABLET 1 TABLET ON AN EMPTY STOMACH ORALLY QID NOT-TAKING BUSPIRONE HCL 5 MG TABLET 1 TABLET ORALLY TWICE A DAY NOT-TAKING MICROGESTIN 1.5/30 1.5-30 MG-MCG TABLET 1 TABLET ORALLY ONCE A DAY NOT-TAKING HYDROXYZINE HCL 50 MG TABLET 1 TABLET NEEDED ORALLY TID NOT-TAKING FLUCONAZOLE 150 MG TABLET 1 TABLET ORALLY WEEKLY NOT-TAKING TRAZODONE HCL 150 MG TABLET 1 TABLET AT BEDTIME ORALLY ONCE A DAY NOT-TAKING HYDROCODONE-ACETAMINOPHEN 5-325 MG TABLET 1 TABLET NEEDED ORALLY DAILY FOR PAIN MDD1 NOT-TAKING VITAMIN D (ERGOCALCIFEROL) 25068 UNIT CAPSULE 1 CAPSULE ORALLY MEDICATION LIST REVIEWED AND RECONCILED WITH THE PATIENT PAST MEDICAL HISTORY MILD DISPLASIA ULCER BUSITIS CARPAL TUNNEL ARTHRITIS PTSD MIGRAINES SCOLIOSIS FATTY LIVER DISEASE ALLERGIES CONTRAST: HIVES - SIDE EFFECTS YLENOL WITH CODEINE: RASH - SIDE EFFECTS PENICILLIN (FOR ALLERGIES USE ONLY): HIVES - ALLERGY SURGICAL HISTORY NO SURGICAL HISTORY DOCUMENTED. FAMILY HISTORY FATHER: , DIAGNOSED WITH HYPERTENSION, UNSPECIFIED HEART DISEASE MOTHER: , UNSPECIFIED CEREBRAL ARTERY OCCLUSION WITH CEREBRAL INFARCTION, DIABETES, HYPERTENSION, UNSPECIFIED HEART DISEASE, OTHER MALIGNANT NEOPLASM OF UNSPECIFIED SITE SIBLINGS: DIABETES, HYPERTENSION, UNSPECIFIED HEART DISEASE PT DOES NOT KNOW FAMILY HISTORY ON FATHER\\\'S SIDE. SOCIAL HISTORY GENERAL: TOBACCO USE ARE YOU A:NONSMOKER ALCOHOL SCREENING DID YOU HAVE A DRINK CONTAINING ALCOHOL IN THE PAST YEAR?NO POINTS0 INTERPRETATIONNEGATIVE RECREATIONAL DRUG USE DRUG USE?NO CAFFEINE CAFFEINE USE?YES HOW OFTEN AND HOW MUCH? DAILY LANGUAGE LANGUAGES SPOKEN:[place] LEARNING BARRIERS / SPECIAL NEEDS BARRIERS TO LEARNING?NO HEARING IMPAIRED?NO VISION IMPAIRED?NO COGNITIVELY IMPAIRED?NO READINESS TO LEARN?YES LEARNING PREFERENCES?NO LEARNING CAPABILITIES PRESENT?YES EMOTIONAL BARRIERS?NO SPECIAL DEVICES?NO COMMUNITY ORGANIZATION WORKER NEEDED?NO NEW PATIENT PAIN DIARY FROM 0-10, WHAT LEVEL IS YOUR PAIN TODAY?8 PAIN CLINIC PFS, CLERGY, PUBLIC HEALTH REFERRALS PFS REFERRAL NEEDED?NO CLERGY REFERRAL NEEDED?NO PUBLIC HEALTH REFERRAL NEEDED?NO WAS THE PROVIDER NOTIFIED OF ANY PERTINENT INFO?NO HAS THE PATIENT BEEN EDUCATED REGARDING HIS/HER PLAN OF CARE?YES HAS THE PATIENT BEEN EDUCATED REGARDING PAIN, THE RISK FOR PAIN, THE IMPORTANCE OF EFFECTIVE PAIN MANAGEMENT, AND THE PAIN ASSESSMENT PROCESS?YES ADVANCE DIRECTIVE ADVANCE DIRECTIVE DISCUSSED WITH PATIENT:YES DECLINED INFO AT THIS TIME REVIEWED WITH PT 10/05/18 8159 Gogo SANTOS RNREVIEWED WITH PATIENT 06/28/19 1355 NLJ. HOSPITALIZATION/MAJOR DIAGNOSTIC PROCEDURE CHILDBIRTH REVIEW OF SYSTEMS CONSTITUTIONAL: ANY RECENT FEVER NO . CHILLS NO . WEIGHT CHANGE OF UNKNOWN REASONS NO . GASTROENTEROLOGY: NEW UNEXPLAINABLE CHANGES IN BOWEL CONTROL NO . CONSTIPATION NO . GENITOURINARY: ANY NEW CHANGE IN BLADDER CONTROL? NO . NEUROLOGY: NEW ONSET DIZZINESS OR NEUROLOGICAL CHANGES NOT MENTIONED NO . NEW NUMBNESS OR PAIN PATTERNS NOT MENTIONED AND PERTINENT TO TODAY'S VISIT NO . CARDIOLOGY: NEW CHEST PRESSURE NO . NEW CHEST PAIN NO . RESPIRATORY: UNEXPLAINABLE COUGH NO . NEW SHORTNESS OF BREATH NO . VITAL SIGNS WT 240.4 LBS, HT 66 IN, BMI 38.80 INDEX, BP 113/75 MM HG, HR 59 /MIN, RR 18 /MIN, TEMP 97.7 F, OXYGEN SAT % 99%, SAFE IN ENV? (Y/N) Y, NA INITIALS AW [id number] ASUMADU SIEBEL CONSULTANT. EXAMINATION GENERAL EXAMINATION: GENERALNO ACUTE DISTRESS, WELL NOURISHED AND HYDRATED. PSYCHAPPROPRIATE MOOD AND AFFECT . LUNGS:CLEAR TO AUSCULTATION BILATERALLY, NO WHEEZES, RHONCHI, RALES. HEART:NO MURMURS, REGULAR RATE AND RHYTHM. ASSESSMENTS SPONDYLOSIS OF LUMBAR REGION WITHOUT MYELOPATHY OR RADICULOPATHY - M47.816 (PRIMARY) TREATMENT SPONDYLOSIS OF LUMBAR REGION WITHOUT MYELOPATHY OR RADICULOPATHY INCREASE NORCO TABLET, 7.5-325 MG, 1 TABLET NEEDED, ORALLY, TWICE DAILY PRN PAIN MDD=2 45 TABS TO LAST 30 DAYS, 30 DAYS, 45 REFILL TIZANIDINE HCL TABLET, 4 MG, 1, ORALLY, BEFORE BEDTIME MAY REPEAT IN 4HRS MDD2, 30 DAY(S), 60, REFILLS 2 CLINICAL NOTES: 34 OLD FEMALE IN FOR CHRONIC PAIN FOLLOW-UP. GIVEN PRESENTING SYMPTOMS RECOMMEND INCREASING NORCO TABS TO 45 TO LAST ONE MONTH. FURTHER RECOMMEND FOLLOW-UP IN 2 MONTHS. PATIENT EXPRESSED UNDERSTANDING OF AND WAS IN AGREEMENT WITH TREATMENT PLAN. GIVEN TIME TO ASK QUESTIONS AND EXPRESS CONCERNS. , ISTOP REGISTRY REVIEWED AND DEMONSTRATES COMPLLIANCE. (REF # [id number] ) BRINGS IN MEDICATIONS WHICH IS APPROPRIATE FOR WHAT WAS DISPENSED. RECENT URINE TOXICOLOGY REVIEWED. NO UNAUTHORIZED MEDICATIONS. NO ILLICIT SUBSTANCES AND PRESCRIBED MEDICATIONS WERE PRESENT. PROCEDURE CODES FA211 ESTABILISHED PATIENT [facility] CHARGE DISPOSITION & COMMUNICATION FOLLOW UP 2 MONTHS (REASON: BACK PAIN) ELECTRONICALLY SIGNED BY ROSA DÍAZ ON 05/20/2020 AT 08:00 AM EDT DISCLAIMER : THIS IS A VISIT SUMMARY EXTRACTED FROM THE [employer] CHART. IT IS NOT A COPY OF THE [employer] PROGRESS NOTE. LIZBETH
== END ==
LOC: M PAIN 11:00
PROVIDERS: ATTEND Family Medicine
DX: M47.816 Spondylosis without myelopathy or radiculopathy, lumbar region (principal); Z79.891 Long term (current) use of opiate analgesic; Z79.899 Other long term (current) drug therapy; Z88.0 Allergy status to penicillin; Z88.6 Allergy status to analgesic agent; Z91.041 Radiographic dye allergy status

== ENCOUNTER → 2020-07-30 | Outpatient (CLI) | payer OTHER, MEDICAID ==
[~2020-07-30] MED LIST changes: +PANT40TA29 PO; -PANT40TA3 PO
[2020-07-30 12:27] LABS: APPEARANCE, URINE CLOUDY (CLEAR); BACTERIA, URINE AUTO 1+ (NEGATIVE); BILIRUBIN, URINE AUTO NEGATIVE (NEGATIVE); BLOOD, URINE BLOOD NEGATIVE (NEGATIVE); COLOR, URINE YELLOW (YELLOW); GLUCOSE, URINE (UA) AUTO NEGATIVE (NEGATIVE); KETONE, URINE AUTO NEGATIVE (NEGATIVE); LEUKOCYTE ESTERASE, URINE AUTO NEGATIVE (NEGATIVE); MUCUS, URINE SMALL (NEGATIVE); NITRITE, URINE AUTO NEGATIVE (NEGATIVE); PROTEIN, URINE AUTO NEGATIVE (NEGATIVE); RBC, URINE AUTO 5 /HPF (0-3); SPECIFIC GRAVITY URINE AUTO 1.018 (1.002-1.035); SQUAMOUS EPITHELIAL CELL UR AU 11 /HPF (0-6); UROBILINOGEN, URINE AUTO 0.2 mg/dL (0.0-2.0); WBC, URINE AUTO 3 /HPF (0-3)
[2020-07-30 12:34] LABS: BASO % 0.3 % (0.0-1.0); EOS # 0.1 10^3/uL (0.0-0.5); EOS % 1.2 % (0.0-3.0); HEMATOCRIT 38.1 % (36.0-47.0); HEMOGLOBIN 12.9 g/dl (12.0-15.5); LYMPH # 3.6 10^3/uL (1.5-5.0); LYMPH % 38.3 % (24.0-44.0); MEAN CORPUSCULAR HEMOGLOBIN 31.2 pg (27.0-33.0); MEAN CORPUSCULAR HGB CONC 33.9 g/dl (32.0-36.5); MONO # 0.6 10^3/uL (0.0-0.8); MONO % 5.9 % (0.0-5.0); NEUTROPHILS % 53.3 % (36.0-66.0); PLATELET COUNT, AUTOMATED 257 10^3/uL (150-450); RED BLOOD COUNT 4.14 10^6/uL (4.00-5.40); WHITE BLOOD COUNT 9.3 10^3/uL (4.0-10.0)
[2020-07-30 13:04] LABS: GLUCOSE, FASTING 93 MG/DL (70-100)
[2020-07-30 13:23] LABS: HEPATITIS B SURFACE ANTIGEN NEGATIVE (NEGATIVE)
[2020-07-30 13:52] LABS: HIV 1&2 SCREEN CENTAUR NEGATIVE (NEGATIVE)
== END ==
LOC: M LAB 10:32
PROVIDERS: ATTEND Nurse Practitioner Adult Health
DX: Z36.89 Encounter for other specified antenatal screening (principal)

== ENCOUNTER → 2020-08-12 | Outpatient (CLI) | payer OTHER, MEDICAID | LOC: M LAB 09:48 | PROVIDERS: ATTEND Nurse Practitioner Adult Health | DX: Z34.01 Encounter for supervision of normal first pregnancy, first trimester (principal); Z3A.00 Weeks of gestation of pregnancy not specified ==

== ENCOUNTER → 2020-10-08 | Outpatient (CLI) | payer OTHER ==
--- NOTE | 2020-10-08 16:11 | REP ---
INDICATION: ANATOMY COMPARISON: None. TECHNIQUE: Transabdominal obstetrical ultrasound with color Doppler evaluation. FINDINGS: Examination demonstrates a single live intrauterine in transverse presentation. motion is identified by technologist. Placenta is noted posterior and grade 0 without definite evidence for previa, but evaluation is limited due to maternal body habitus as well as 10.2 x 8.8 x 11.1 cm cm hypoechoic mass at the lower uterine segment/cervical region. Amniotic fluid volume is normal. Cervix measures 7.0 cm in length and appears closed.. Gestational age by LMP 18 weeks 0 days with XIOMARA 03/11/2021. Gestational age by current measurements 18 weeks 2 days with XIOMARA 03/09/2021. FHR equals 141 beats per minute. BPD: 4.1 cm 18 weeks 3 days HC: 15.2 cm 18 weeks 2 days AC: 13.6 cm 19 weeks 0 days FL: 2.7 cm 18 weeks 2 days HL: 2.7 cm 18 weeks 4 days HC/AC: 1.12 Estimated weight 250 grams (70thpercentile). Limited anatomical assessment demonstrates normal cranium, four-chamber heart, stomach, bladder, and three-vessel cord. IMPRESSION: 1. 11 cm hypoechoic mass at the level of the cervix may represent fibroid and limits evaluation. Placenta previa cannot definitively be excluded based on current examination. 2. Intrauterine demonstrating appropriate estimated weight and growth. 3. Anatomical assessment is incomplete and warrants re-evaluation/follow-up. <Electronically signed by Jared Moser > 10/08/20 7006
== END ==
LOC: M RAD 09:25
PROVIDERS: ATTEND Obstetrics & Gynecology
DX: Z34.92 Encounter for supervision of normal pregnancy, unspecified, second trimester (principal); Z3A.18 18 weeks gestation of pregnancy

== ENCOUNTER → 2020-11-03 | Outpatient (CLI) | payer OTHER ==
[~2020-11-03] VITALS: Ht 167.6 cm; Wt 112.9 kg
[~2020-11-03] MED LIST changes: +MAPA500T2 PO; +NORC1TAB7 PO; +NORCO, ANEXSIA 5/325MG TABLET (HYDROcodone/ACETAMINOPHEN) PO ONE; +PRENTAB9 PO
[2020-11-03 12:09] VITALS: BP 136/78
[2020-11-03 12:49] LABS: APPEARANCE, URINE CLOUDY (CLEAR); BACTERIA, URINE AUTO NEGATIVE (NEGATIVE); BILIRUBIN, URINE AUTO NEGATIVE (NEGATIVE); BLOOD, URINE BLOOD NEGATIVE (NEGATIVE); COLOR, URINE YELLOW (YELLOW); GLUCOSE, URINE (UA) AUTO NEGATIVE (NEGATIVE); KETONE, URINE AUTO 1+ mg/dL (NEGATIVE); LEUKOCYTE ESTERASE, URINE AUTO NEGATIVE (NEGATIVE); MUCUS, URINE SMALL (NEGATIVE); NITRITE, URINE AUTO NEGATIVE (NEGATIVE); PROTEIN, URINE AUTO NEGATIVE (NEGATIVE); RBC, URINE AUTO 2 /HPF (0-3); SPECIFIC GRAVITY URINE AUTO 1.017 (1.002-1.035); SQUAMOUS EPITHELIAL CELL UR AU 24 /HPF (0-6); UROBILINOGEN, URINE AUTO 0.2 mg/dL (0.0-2.0); WBC, URINE AUTO 1 /HPF (0-3)
[2020-11-03 13:07] VITALS: BP 141/75
[2020-11-03 14:23] VITALS: BP 130/74
--- NOTE | 2020-11-03 14:27 | IPNPDOC ---
Text Note Date of Service The patient was seen on 11/03/20. NOTE Subjective: Edis Bateman is a 35 y/o at 22.2wks by 1st Trimester Ultrasound on 07/31/20 at 8.0wks. She presents to Labor and Delivery today with constant pelvic pain that started yesterday, rating 8/10 on adult pain scale, described as lower suprapubic pain that increases with some activity. Also reports chronic back pain, has seen Dr. Mcclendon and pain management for this, which they have taken her off all medication for. She was previously on a muscle relaxer and Vicodin. She has tried taking a shower and Tylenol at home, without positive effect at pain relief. She reports this pain as similar to when she had a yeast infection last month. She does not believe this is labor pain related. She was recently given antibiotics for "swollen glands and possible upper respiratory infection" and Diflucan prophylactically. Reports having taken Diflucan yesterday. History also significant for a large fibroid in the lower uterine segment/ cervical region measuring 10.2x8.8x11.1cm on 10/08/20. Denies vaginal itching, odor, burning, or abnormal discharge. Denies vaginal bleeding, LOF, contractions. Reports active movement. Obstetrical Hx.: 1998 IAB, 2001 at 40wks 7lb9oz., 2015 SAB Gynecologic Hx.: Abnormal PAP with colposcopy and cryotherapy, Denies STI history Medical Hx.: Essential Hypertension, Obesity (BMI40.2), Chronic Pain, Back L4and L5 fused, and bulging discs Psychiatric Hx.: Anxiety, depression, PTSD, night terrors Family Hx.: Father- Heart disease, due to [place], Mother - Kidney disease, heart disease, HTN, Diabetes, COPD, Cervical Cancer, due to kidney disease Social Hx.: , Homemaker, Denies smoking, alcohol, illicit drug use. Has a clitoral paul piercing. Lives with , daughter, and granddaughter. Medications: Metoprolol 25mg BID, Prazosin 2mg BID, vitamins 1 tab daily, Tylenol 500mg PRN for pain. Objective: VSS General: Alert and oriented x3, well appearing female. Respiratory: Rate regular, no accessory muscle use. Abdomen: Gravid, non tender to palpation. Pelvic: Speculum: unable to visualize cervix, thin, white secretions on speculum and cultured and wet prepped. Digital exam shows cervix in the anterior far right, and closed. Smooth, round mass in the vaginal vault, ass umed to fibroid that was seen on ultrasound. Wet Prep: Negative amine smell, yeast buds seen. No trichomonads, no clue cells. Extremities: No edema, negative calf tenderness. Doppler of FHR 145 bpm. No uterine contractions seen on toco or felt by patient, irritability resolved with voiding. Assessment: IUP at 22.2wks, Lower Uterine segment fibroid, possibly degenerating; Not in labor. Plan: Vicodin 5/325 x1 tablet now, 6 more sent to patient's pharmacy ([facility] on [facility]). Appointment scheduled for Tuesday, maintain all appointments as scheduled. Educated on the signs of labor and reasons to return including vaginal bleeding, LOF, decreased movement, contractions, or if pain increases. VS,Fishbone, I+O VS, Fishbone, I+O Vital Signs Date Time Temp Pulse Resp B/P (MAP) Pulse Ox O2 Delivery O2 Flow Rate FiO2 11/03/20 13:07 87 18 141/75 (97) 11/03/20 12:09 98.4 ALEJA PERAZA CNM Nov 03, 2020 14:27
== END ==
LOC: M LDO 11:43
PROVIDERS: ATTEND Advanced Practice Midwife
DX: O26.892 Other specified pregnancy related conditions, second trimester (principal); R10.2 Pelvic and perineal pain; O34.10 Maternal care for benign tumor of corpus uteri, unspecified trimester; D25.9 Leiomyoma of uterus, unspecified; Z88.0 Allergy status to penicillin; Z88.6 Allergy status to analgesic agent; Z91.041 Radiographic dye allergy status; Z3A.22 22 weeks gestation of pregnancy

== ENCOUNTER → 2020-12-15 | Outpatient (CLI) | payer OTHER ==
[~2020-12-15] MED LIST changes: -NORCO, ANEXSIA 5/325MG TABLET (HYDROcodone/ACETAMINOPHEN) PO ONE
[2020-12-15 14:26] LABS: BASO % 0.3 % (0.0-1.0); EOS # 0.1 10^3/uL (0.0-0.5); EOS % 0.8 % (0.0-3.0); HEMATOCRIT 37.3 % (36.0-47.0); HEMOGLOBIN 12.1 g/dl (12.0-15.5); LYMPH # 2.9 10^3/uL (1.5-5.0); LYMPH % 24.7 % (24.0-44.0); MEAN CORPUSCULAR HEMOGLOBIN 29.5 pg (27.0-33.0); MEAN CORPUSCULAR HGB CONC 32.4 g/dl (32.0-36.5); MONO # 0.7 10^3/uL (0.0-0.8); MONO % 5.6 % (0.0-5.0); NEUTROPHILS # 7.8 10^3/uL (1.5-8.5); NEUTROPHILS % 66.3 % (36.0-66.0); PLATELET COUNT, AUTOMATED 255 10^3/uL (150-450); WHITE BLOOD COUNT 11.8 10^3/uL (4.0-10.0)
== END ==
LOC: M LAB 12:03
PROVIDERS: ATTEND Obstetrics & Gynecology Obstetrics
DX: Z34.82 Encounter for supervision of other normal pregnancy, second trimester (principal); Z3A.00 Weeks of gestation of pregnancy not specified

== ENCOUNTER → 2020-12-26 | Outpatient (CLI) | payer OTHER | LOC: M LAB 07:58 | PROVIDERS: ATTEND Obstetrics & Gynecology Obstetrics | DX: Z34.92 Encounter for supervision of normal pregnancy, unspecified, second trimester (principal); Z3A.00 Weeks of gestation of pregnancy not specified ==

== ENCOUNTER → 2021-01-16 | Outpatient (CLI) | payer OTHER ==
[2021-01-16 11:26] LABS: HEMOGLOBIN A1c 5.6 %
[2021-01-16 11:43] LABS: ALT/SGPT 11 U/L (12-78); BILIRUBIN,TOTAL 0.3 MG/DL (0.2-1.0); CREATININE FOR GFR 0.45 MG/DL (0.55-1.30); GLOMERULAR FILTRATION RATE > 60.0 (>60); LDH LACTATE DEHYDROGENASE 159 U/L (84-246); URIC ACID 4.9 MG/DL (2.6-6.0)
[2021-01-16 12:07] LABS: CREATININE, URINE 73.3 MG/DL; URINE TOTAL PROTEIN 15.8 MG/DL (0-12)
[2021-01-16 15:06] LABS: CREATININE 24 HOUR, URINE 916.2 MG/24HR (600-1800); TOTAL PROTEIN 24 HOUR URINE 197.5 MG/24HR (50-150)
== END ==
LOC: M LAB 08:34
PROVIDERS: ATTEND Obstetrics & Gynecology
DX: O09.93 Supervision of high risk pregnancy, unspecified, third trimester (principal)

== ENCOUNTER → 2021-01-23 | Outpatient (CLI) | payer OTHER ==
--- NOTE | 2021-01-23 09:57 | REP ---
INDICATION: PREG 32 WKS GIANFRANCO BPP EFW GESTATIONAL DIABETI HIGH R COMPARISON: 10/08/2020 TECHNIQUE: Transabdominal obstetrical ultrasound with color Doppler evaluation. FINDINGS: Examination demonstrates a single live intrauterine in cephalic presentation. motion is identified by technologist. Placenta is noted anterior/right lateral and grade 2 without evidence for placenta previa or abruption. Amniotic fluid volume is normal. Cervix cannot be measured due to advanced age. A large heterogeneous lower uterine segment fibroid is identified measuring 11.0 x 10.7 x 10.4 cm. Gestational age by LMP and 1st ultrasound 33 weeks 2 days with XIOMARA 03/11/2021. Gestational age by current measurements 36 weeks 3 days with XIOMARA 02/17/2021. FHR equals 144 beats per minute. BPD: 9.2 cm at 37 weeks 3 days HC: 32.6 cm at 37 weeks 0 days AC: 32.5 cm at 36 weeks 3 days FL: 6.8 cm at 35 weeks 0 days HC/AC: 1.00 Estimated weight 2876 grams (greater than 97thpercentile based on age by 1st ultrasound). GIANFRANCO: 12.5 cm (8.2-24.6) Biophysical profile score: 8/8 Umbilical artery SD ratio: 2.30 (1.77-3.74) Limited anatomical assessment demonstrates renal pelviectasis. IMPRESSION: 1. Single live advanced gestation in cephalic presentation. Greater than expected interval growth is noted. 2. Biophysical profile score and amniotic fluid volume are normal. 3. Large lower uterine segment fibroid. 4. Renal pelviectasis warrants ultrasound evaluation. <Electronically signed by Jared Moser > 01/23/21 0908
== END ==
LOC: M RAD 07:10
PROVIDERS: ATTEND Obstetrics & Gynecology
DX: O09.93 Supervision of high risk pregnancy, unspecified, third trimester (principal); Z3A.36 36 weeks gestation of pregnancy

== ENCOUNTER → 2021-01-28 | Outpatient (CLI) | payer OTHER ==
--- NOTE | 2021-01-28 10:59 | REP ---
INDICATION: PREG 33 WKS GIANFRANCO BPP EFW GESTATIONAL DIABETI HIGH R COMPARISON: 01/23/2021 TECHNIQUE: Transabdominal obstetrical ultrasound with color Doppler evaluation. FINDINGS: Examination demonstrates a single live intrauterine in cephalic presentation. motion is identified by technologist. Placenta is noted anterior/right lateral and grade 2 without evidence for placenta previa or abruption. Amniotic fluid volume is normal. Cervix appears closed. Known large lower uterine fibroid again identified measuring approximately 10.8 cm maximal diameter. Gestational age by LMP 34 weeks 0 days with XIOMARA 03/11/2021. GIANFRANCO: 20.0 cm (8.1-24.8) Biophysical profile score: 8/8 Umbilical artery SD ratio: 2.59 (1.73-3.68) IMPRESSION: Single live advanced gestation in cephalic presentation. Amniotic fluid index and biophysical profile score are normal. Known uterine fibroid. <Electronically signed by Jared Moser > 01/28/21 1772
== END ==
LOC: M RAD 10:09
PROVIDERS: ATTEND Obstetrics & Gynecology
DX: O09.93 Supervision of high risk pregnancy, unspecified, third trimester (principal); Z3A.34 34 weeks gestation of pregnancy

== ENCOUNTER → 2021-02-05 | Outpatient (REF) | payer OTHER | LOC: M LAB REF 11:46 | PROVIDERS: ATTEND Obstetrics & Gynecology | DX: O09.93 Supervision of high risk pregnancy, unspecified, third trimester (principal) ==

== ENCOUNTER → 2021-02-06 | Outpatient (CLI) | payer OTHER ==
--- NOTE | 2021-02-06 18:09 | REP ---
INDICATION: PREG HIGH RISK GIANFRANCO BPP. Supervision of high-risk . XIOMARA March 11, 2021. Limited obstetric sonography. COMPARISON: Comparison study January 28, 2021.. TECHNIQUE: Transabdominal obstetric sonography. FINDINGS: Scanning through the gravid uterus demonstrates a single living intrauterine gestation in a transverse lie. heart rate is recorded at 144 beats per minute. An anterior grade 2 placenta is seen without evidence of previa. Amniotic fluid is subjectively normal. GIANFRANCO is normal at 14.0 cm. Biophysical profile score is normal at 8 out of a possible 8. SD ratio in the umbilical cord artery by Doppler is normal at 2.4. A large uterine fibroid is again seen in the left side of the lower uterine segment. Its dimensions are 10.6 x 10.1 x 10.4 cm. IMPRESSION: Lower uterine segment fibroid as above. Transverse single living intrauterine gestation. Limited Ob sonography. <Electronically signed by Ilan Malcolm > 02/06/21 0902
== END ==
LOC: M RAD 10:58
PROVIDERS: ATTEND Obstetrics & Gynecology
DX: O09.93 Supervision of high risk pregnancy, unspecified, third trimester (principal); O09.523 Supervision of elderly multigravida, third trimester; O34.13 Maternal care for benign tumor of corpus uteri, third trimester

== ENCOUNTER → 2021-02-13 | Outpatient (CLI) | payer OTHER | LOC: M LABSMTC 10:21 | PROVIDERS: ATTEND Anesthesiology | DX: Z01.812 Encounter for preprocedural laboratory examination (principal); Z20.822 Contact with and (suspected) exposure to COVID-19 ==

== ENCOUNTER → 2021-02-13 | Outpatient (CLI) | payer OTHER ==
--- NOTE | 2021-02-13 12:36 | REP ---
INDICATION: EFW. COMPARISON: 02/06/2021. TECHNIQUE: Real-time sonographic evaluation of the gravid uterus performed. FINDINGS: Estimated gestational age is36 weeks 2 days, EDC 03/11/2021. Today's measurements indicate appropriate growth. Presentation: Transverse, head maternal right side. Placenta anterior, fundal, grade 2, without evidence of placenta previa. heart rate is recorded at 126 beats per minute. Amniotic fluid is subjectively decreased. GIANFRANCO 13.8, normal range 7.6-24.8. Biophysical profile score 8/8. SD ratio umbilical artery 2.44, normal 1.63-3.49. RI 0.59, normal 0.44-0.71. Lower uterine segment fibroid measures approximately 9.3 x 9.9 x 9.7 cm. Biometry chart: BPD: 90 mm, 36 weeks 2 days, 50th percentile. HC: 338 mm, 38 weeks 6 days, 92nd percentile AC: 342 mm, 38 weeks 1 days, 77th percentile Femur length: 75 mm, 38 weeks 3 days, 81st percentile HC to AC ratio: 0.99, normal range 0.92-1.11. Estimated weight: 3380g, greater than 90th percentile. The four-chamber heart, stomach and bladder are visualized and are grossly unremarkable. IMPRESSION: Viable single intrauterine gestation as above. <Electronically signed by Zurdo Zuniga > 02/13/21 5622
== END ==
LOC: M RAD 10:43
PROVIDERS: ATTEND Obstetrics & Gynecology
DX: O09.93 Supervision of high risk pregnancy, unspecified, third trimester (principal); Z3A.38 38 weeks gestation of pregnancy

== ENCOUNTER 2021-02-18 06:53 | Inpatient (IN) | payer OTHER ==
[2021-02-18] VITALS (8 sets, daily range): BP systolic 109–145; BP diastolic 52–80
[~2021-02-18] VITALS: Ht 167.6 cm; Wt 117.1 kg
[2021-02-18] MEDS ORDERED: LR 1,000 ML IV SCH ×2 (07:10→11:25)
[2021-02-18] MEDS ORDERED: BICITRA 30ML SOLN UDC PO ONE (07:10)
[2021-02-18] MEDS ORDERED: LACTATED RINGER'S 1000 ML IV STA (07:10)
[2021-02-18] MEDS ORDERED: TRANEXAMIC ACID INJection 1,000 MG in NS 100 ML IV PRN (07:30)
[2021-02-18] MEDS ORDERED: OXYTOCIN DRIP 30 UNITS in IV 1 EA IV PRN (07:30)
[2021-02-18] MEDS ORDERED: METHYLERGONOVINE MALEATE 0.2 MG/ML VIAL (J2210) IM PRN (07:30)
[2021-02-18] MEDS ORDERED: INSUNSD SC ×2 (07:41)
[2021-02-18] MEDS ORDERED: LANTINJ4 SC ×2 (07:41)
[2021-02-18] MEDS ORDERED: ceFAZolin SOD 2 GM in IV 1 EA IV ONE (08:00)
[2021-02-18 08:01] LABS: HEMATOCRIT 36.5 % (36.0-47.0); HEMOGLOBIN 11.9 g/dl (12.0-15.5); MEAN CORPUSCULAR HEMOGLOBIN 29.8 pg (27.0-33.0); MEAN CORPUSCULAR HGB CONC 32.6 g/dl (32.0-36.5); MEAN CORPUSCULAR VOLUME 91.3 fl (80.0-96.0); PLATELET COUNT, AUTOMATED 214 10^3/uL (150-450); WHITE BLOOD COUNT 10.7 10^3/uL (4.0-10.0)
[2021-02-18 08:32] LABS: ALT/SGPT 12 U/L (12-78); BILIRUBIN,TOTAL 0.3 MG/DL (0.2-1.0); CREATININE FOR GFR 0.46 MG/DL (0.55-1.30); GLOMERULAR FILTRATION RATE > 60.0 (>60); LDH LACTATE DEHYDROGENASE 161 U/L (84-246); URIC ACID 4.8 MG/DL (2.6-6.0)
[2021-02-18] MEDS: DOCUSATE SODIUM 100MG CAPSULE PO SCH ×2 (09:00→21:25)
[2021-02-18] MEDS: PRENATAL VITAMINS CHEWABLE TABLET PO SCH (09:00)
[2021-02-18] MEDS ORDERED: NALOXONE INJ 0.4MG/1ML VIAL (J2310 PER 1MG) IV PRN ×2 (09:57)
[2021-02-18] MEDS ORDERED: diphenhydrAMINE 50MG/ML VIAL (J1200) IV PRN (09:57)
[2021-02-18] MEDS ORDERED: METOCLOPRAMIDE INJ 10MG/2ML VIAL (J2765 PER 1) IV PRN ×2 (09:57→11:25)
[2021-02-18] MEDS ORDERED: NALBUPHINE HCL 10 MG/ML AMP (J2300) IV PRN (09:57)
[2021-02-18] MEDS ORDERED: ONDANSETRON 4MG/2ML VIAL IV PRN ×2 (09:57→11:25)
[2021-02-18] MEDS ORDERED: PHENYLephrine 500MCG 5ML (100MCG/ML) SYRINGE As Ordered ONE (10:01)
[2021-02-18] MEDS ORDERED: ePHEDrine SULFATE 25 MG/5 ML(5MG/ML) SYRINGE As Ordered ONE (10:09)
[2021-02-18] MEDS ORDERED: dexameTHASONE 4 MG/ML 1ML VIAL (J1100 PER 1MG) As Ordered ONE (10:17)
[2021-02-18] MEDS ORDERED: ONDANSETRON 4MG/2ML VIAL As Ordered ONE (10:17)
[2021-02-18] MEDS ORDERED: METOCLOPRAMIDE INJ 10MG/2ML VIAL (J2765 PER 1) As Ordered ONE (10:17)
[2021-02-18] MEDS ORDERED: OXYTOCIN INJ 10 UNITS/ML VIAL (J2590) As Ordered ONE (10:20)
[2021-02-18] MEDS ORDERED: MORPHINE PRES-FREE INJ 10 MG/10 ML VIAL (J2274) As Ordered ONE (10:20)
[2021-02-18] MEDS ORDERED: KETOROLAC 60MG 2ML VIAL As Ordered ONE (10:20)
[2021-02-18 10:32] LABS: CORD GAS ABE A -2.6; CORD GAS HCO3 A 26.8 MEQ/L; CORD GAS O2 SAT A 43.4 %; CORD GAS PCO2 A 65.3 mmHg; CORD GAS PH A 7.231 UNITS; CORD GAS PO2 A 22.2 mmHg; CORD GAS SBC A 20.9 MEQ/L; CORD GAS TCO2 A 28.8 MEQ/L
[2021-02-18 10:35] LABS: CORD GAS ABE V -2.7; CORD GAS HCO3 V 24.5 MEQ/L; CORD GAS O2 SAT V 44.8 %; CORD GAS PCO2 V 51.1 mmHg; CORD GAS PH V 7.299 UNITS; CORD GAS PO2 V 21.4 mmHg; CORD GAS SBC V 20.8 MEQ/L; CORD GAS TCO2 V 26.1 MEQ/L
[2021-02-18] MEDS ORDERED: OXYTOCIN 30 UNITS IN 0.9% NaCl 500ML IV BAG (J2590) As Ordered ONE (10:40)
[2021-02-18] MEDS ORDERED: RHOGAM 300 MCG (1500 IU) INJ (J2790) IM SCH (10:50)
[2021-02-18] MEDS ORDERED: MEASLES,MUMPS,RUBELLA VACCINE INJ (MMR-II) (90707) SC SCH (10:50)
[2021-02-18] MEDS ORDERED: MOM 30ML SUSPENSION UDC PO PRN (10:50)
[2021-02-18] MEDS ORDERED: SIMETHICONE 80MG CHEW TAB PO PRN (10:50)
[2021-02-18] MEDS ORDERED: OXYTOCIN DRIP 30 UNITS in IV 1 EA IV SCH (10:50)
[2021-02-18] MEDS ORDERED: fentaNYL 100 MCG/2 ML INJECTION (J3010) As Ordered ONE (11:21)
[2021-02-18] MEDS ORDERED: PERCOCET 5MG/325MG TAB PO PRN (11:25)
[2021-02-18] MEDS: fentaNYL 100 MCG/2 ML INJECTION (J3010) IV PRN ×3 (11:26→11:40)
[2021-02-18] MEDS: KETOROLAC 30 MG/ML 1ML VIAL IV SCH ×2 (17:26→22:46)
[2021-02-18] MEDS ORDERED: PROMETHAZINE INJ 25 MG/ML VIAL (J2550) IV ONE (17:45)
[2021-02-19 02:00] VITALS: BP 114/72
[2021-02-19] MEDS: KETOROLAC 30 MG/ML 1ML VIAL IV SCH (05:20)
[2021-02-19 06:11] VITALS: BP 100/56
[2021-02-19 07:50] LABS: HEMATOCRIT 33.2 % (36.0-47.0); HEMOGLOBIN 10.3 g/dl (12.0-15.5); MEAN CORPUSCULAR HEMOGLOBIN 29.7 pg (27.0-33.0); MEAN CORPUSCULAR VOLUME 95.7 fl (80.0-96.0); PLATELET COUNT, AUTOMATED 160 10^3/uL (150-450); RED BLOOD COUNT 3.47 10^6/uL (4.00-5.40); WHITE BLOOD COUNT 13.6 10^3/uL (4.0-10.0)
[2021-02-19] MEDS: PRENATAL VITAMINS CHEWABLE TABLET PO SCH (09:26)
[2021-02-19] MEDS: DOCUSATE SODIUM 100MG CAPSULE PO SCH ×2 (09:26→20:08)
[2021-02-19] MEDS: IBUPROFEN 800 MG TAB PO SCH ×2 (12:52→20:09)
[2021-02-19 13:50] VITALS: BP 106/53
[2021-02-19 18:00] VITALS: BP 121/72
[2021-02-19 22:00] VITALS: BP 127/61
[2021-02-20 02:00] VITALS: BP 128/64
[2021-02-20] MEDS: IBUPROFEN 800 MG TAB PO SCH ×2 (04:48→12:03)
[2021-02-20] MEDS ORDERED: IBUP80TA PO (05:43)
[2021-02-20] MEDS ORDERED: DOK1CAP7 PO (05:43)
[2021-02-20] MEDS ORDERED: ACET325C5 PO (05:43)
--- NOTE | 2021-02-20 05:50 | IPNPDOC ---
Progress Note Date of Service: Feb 20, 2021 Day#: 2 Progress Note POD 2 SUBJECT: Edis is a 35yo F s/p uncomplicated section at term, doing well /post-op day 2. complicated by obesity, diabetes controlled with insulin and large fibroid uterus. She has been ambulating, voiding spontaneously without issue and tolerating regular diet. Bottle feeding and baby is in NICU. Reports lochia is like a normal period. Pain mostly controlled with motrin/tylenol, but she reports pain this morning 2/2 not having motrin since before bed last night. Does not feel ready to go home yet. OBJECTIVE: VITAL SIGNS: normotensive, afebrile. Alert and oriented times three. Abdomen: Fundus firm at U-2. Soft, appropriately tender to palpation with no rebound/guarding. Pfannenstiel incision clean/dry/intact with steri strips overlying Extremities: no pain with palpation of legs Labs: pre-op H/H: 11.9/36.5 post-op H/H: 10.3/33.2 ASSESSMENT: Edis is a 35yo F s/p uncomplicated section at term, doing well /post-op day 2. complicated by obesity, diabetes controlled with insulin and large fibroid uterus. Vitals within normal limits, afebrile, hemodynamically stable with no evidence of infection. PLAN: 1. Routine post-op/post- care 2. Motrin and tylenol for pain. 3. Regular diet 4. Encourage ambulation and visiting baby in NICU 5. Discharge to home when meeting all milestones Salome Rendon MD VS, I&O, 24H, [facility] Vital Signs/I&O Vital Signs Date Time Temp Pulse Resp B/P (MAP) Pulse Ox O2 Delivery O2 Flow Rate FiO2 02/20/21 02:00 97.7 78 16 128/64 (85) 98 Room Air Laboratory Data 24H LABS Laboratory Tests 2 02/19/21 07:11: Nucleated Red Blood Cells % (auto) 0.0 CBC/BMP Laboratory Tests 02/19/21 07:11 Salome Rendon MD Feb 20, 2021 05:50
[2021-02-20 05:55] VITALS: BP 103/67
[2021-02-20 06:00] VITALS: BP 139/80
[2021-02-20] MEDS: PRENATAL VITAMINS CHEWABLE TABLET PO SCH (09:43)
[2021-02-20] MEDS: DOCUSATE SODIUM 100MG CAPSULE PO SCH ×2 (09:43→21:16)
[2021-02-20 10:00] VITALS: BP 118/66
[2021-02-20] MEDS ORDERED: ACETAMINOPHEN 500 MG TAB PO PRN (11:00)
[2021-02-20] MEDS ORDERED: FLEET ENEMA PR PRN (14:50)
--- NOTE | 2021-02-20 15:23 | RO ---
OPERATIVE NOTE DATE OF OPERATION: 02/18/2021 Edis is a 35-year-old female with intrauterine at 39 weeks gestation. She has chronic hypertension and diabetes that is well controlled. She was found to have a large obstructing fibroid on ultrasound. After consulting the decision was made for delivery via primary section. PREOPERATIVE DIAGNOSES: 1. Intrauterine at 39 weeks gestation. 2. Obstructing large fibroid uterus. 3. Chronic hypertension. 4. Diabetes. POSTOPERATIVE DIAGNOSES: 1. Intrauterine at 39 weeks gestation. 2. Obstructing large fibroid uterus. 3. Chronic hypertension. 4. Diabetes. PROCEDURE: Primary low transverse section via Pfannenstiel incision. SURGEON: Triston Ventura DO EVENT EXECUTIVE: Noni Polanco ANESTHESIA: Spinal. COMPLICATIONS: None. ESTIMATED BLOOD LOSS: 500 mL. FINDINGS: Live male infant in occiput transverse position, Apgars 7 and 9; weight 7 pounds 8 ounces with a large what appeared to be lower uterine/cervical myoma that measures approximately 12-14 cm in size. DESCRIPTION OF PROCEDURE: After obtaining informed consent, the patient was taken to the operating room. Once spinal anesthetic was found to be adequate, she was then draped and prepped in the usual sterile fashion in the supine position. With the help of my administrative assistant Noni Polanco a Pfannenstiel incision was made and this was carried down to the fascia. The fascia was incised in the midline fashion and carried through the laterally. The superior aspect of the fascia was then grasped with a Maris clamp and tented off and dissected off the rectus muscles sharply. The inferior aspect was dissected off in a similar fashion. Rectus muscles were in midline fashion. Peritoneum identified. Peritoneal cavity entered bluntly. Superior and inferior dissection of the peritoneum was then done with good visualization of the bladder. At this point, a Mobius skin retractor was placed. A low transverse uterine incision was made. The infant was delivered in atraumatic fashion. The nose and mouth bulb suctioned, the cord doubly clamped and cut and infant was handed over to the waiting warmer. Cord blood and cord gas was sent. Placenta removed manually. Uterus cleared of all clots and debris, and the uterine incision was then repaired in two separate layers of #0 Vicryl suture. All superficial bleeders coagulated. The skin was reapproximated in subcuticular fashion using 3-0 Vicryl on a David. Steri-Strips placed. The patient tolerated the procedure well. She was then transferred to the recovery room in stable condition. cc: [facility]
[2021-02-20 18:45] VITALS: BP 133/84
[2021-02-20] MEDS: PERCOCET 5MG/325MG TAB PO PRN (20:00)
[2021-02-20] MEDS ORDERED: IBUPROFEN 800 MG TAB PO PRN ×2 (20:30→21:00)
[2021-02-21] MEDS: PERCOCET 5MG/325MG TAB PO PRN ×3 (00:05→09:48)
[2021-02-21 06:00] VITALS: BP 146/82
--- NOTE | 2021-02-21 07:48 | DS.PDOC ---
Discharge Summary General Date of Admission Feb 18, 2021 at 06:53 Date of Discharge February 21, 2021 Discharge Summary PROCEDURES PERFORMED DURING STAY: Primary section ADMITTING DIAGNOSES: 1. Chronic hypertension 2. Gestational diabetes 3. Large lower uterine fibroid 4. AMA DISCHARGE DIAGNOSES: 1. Chronic hypertension 2. Primary at term COMPLICATIONS/CHIEF COMPLAINT: High Risk ,Large Uterine Fibroid,History.. HISTORY OF PRESENT ILLNESS: 35 yo G 4 now P2. Admitted by Dr Ventura 02/18/2021 for primary section. complicated by obesity, chronic hypertension, gestational diabetes, chronic back pain with fusion, depression, and large uterine fibroid adjacent to cervix. PNV consultation recommended at 37-38 wks. Patient unable to tolerate NSAIDS due to history of ulcers. HOSPITAL COURSE: OOB. Reports improved pain management with 1 percocet Q 4-6 hours. Tolerating diet. Voiding. Passing flatus. DISCHARGE MEDICATIONS: Please see below. ALLERGIES: Please see below. PHYSICAL EXAMINATION ON DISCHARGE: VITAL SIGNS: Please see below. GENERAL: No distress HEENT: WNL NECK: Supple CARDIOVASCULAR EXAMINATION: HRR, normotensive RESPIRATORY EXAMINATION: Clear and unlabored ABDOMINAL EXAMINATION: Fundus firm. Wound well approximated with steri strips intact. No evidence infection EXTREMITIES: Equal strength and motion SKIN: Intact NEUROLOGICAL EXAMINATION: Grossly intact PSYCHIATRIC EXAMINATION: Appropriate LABORATORY DATA: Please see below. PROGNOSIS: Good ACTIVITY: As tolerated. Pelvic rest DIET: As tolerated DISCHARGE PLAN: Home. Continue home medications. Pelvic rest. Keep appt with pain management office Tuesday DISPOSITION: Home DISCHARGE INSTRUCTIONS: 1. Pelvic rest. Call office with fever, nausea, vomiting, chills, foul lochia or wound exudate. RTO 2wks and 6 wks DISCHARGE CONDITION: Stable TIME SPENT ON DISCHARGE: Greater than 10 minutes. Vital Signs/I&Os Vital Signs Date Time Temp Pulse Resp B/P (MAP) Pulse Ox O2 Delivery O2 Flow Rate FiO2 02/21/21 06:00 97.0 78 18 146/82 (103) 99 Room Air Discharge Medications Scheduled Docusate Sodium (Dok) 100 Mg Capsule, 100 MG PO BID Ibuprofen (Ibuprofen) 800 Mg Tablet, 800 MG PO Q8H Insulin Glargine,Hum.rec.anlog (Lantus Solostar) 100 Unit/1 Ml Insuln.pen, 15 UNIT SC QPM, (Reported) Insulin Glargine,Hum.rec.anlog (Lantus Solostar) 100 Unit/1 Ml Insuln.pen, 6 UNITS SC QAM, (Reported) Insulin Human NPH (Humulin N) 100 Unit/1 Ml Vial, 6 UNITS SC ACS, (Reported) Insulin Human NPH (Humulin N) 100 Unit/1 Ml Vial, 40 UNITS SC QAM, (Reported) Metoprolol Succinate (Metoprolol Succinate) 25 Mg Tab.er.24h, 25 MG PO BID, (Reported) Prazosin Hcl (Prazosin HCl) 2 Mg Cap, 2 MG PO BID, (Reported) No.137/Iron/Folic Acd ( Vitamin Tablet) 1 Each Tablet, 1 TAB PO DAILY, (Reported) Scheduled PRN Acetaminophen (Tylenol) 325 Mg Capsule, 325 MG PO Q6HP PRN for PAIN OR FEVER Miscellaneous Medications Acetaminophen (Mapap) 500 Mg Tablet, 1,000 MG PO, (Reported) Allergies Coded Allergies: Contrast Media (Verified Allergy, Intermediate, Hives, 12/17/19) Penicillins (Verified Allergy, Intermediate, hives, 12/17/19) codeine (Verified Allergy, Unknown, hives, 12/17/19) Kelly Fisher CNM Feb 21, 2021 07:44
[2021-02-21] MEDS ORDERED: PERCOCET PO (07:50)
[2021-02-21] MEDS: PRENATAL VITAMINS CHEWABLE TABLET PO SCH (09:47)
[2021-02-21] MEDS: DOCUSATE SODIUM 100MG CAPSULE PO SCH (09:47)
== END 2021-02-21 10:05 | disposition home or self-care (01) | DRG 540 ==
LOC: M LDI 06:53 → M OBS 12:16
PROVIDERS: ADMIT Obstetrics & Gynecology; ATTEND Obstetrics & Gynecology
PROC: 10D00Z1 Extraction of Products of Conception, Low, Open Approach (ICD-10-PCS; principal; 2021-02-18 09:30)
DX: O34.593 Maternal care for other abnormalities of gravid uterus, third trimester (principal); Z3A.39 39 weeks gestation of pregnancy; O10.02 Pre-existing essential hypertension complicating childbirth; O24.12 Pre-existing type 2 diabetes mellitus, in childbirth; Z79.4 Long term (current) use of insulin; E11.00 Type 2 diabetes mellitus with hyperosmolarity without nonketotic hyperglycemic-hyperosmolar coma (NKHHC); Z37.0 Single live birth

== ENCOUNTER → 2021-02-27 | Outpatient (CLI) | payer OTHER, MEDICAID ==
[~2021-02-27] MED LIST changes: +ACET325C5 PO; +DOK1CAP7 PO; +IBUP80TA PO; +INSUNSD SC; +LANTINJ4 SC; +PERCOCET PO
--- NOTE | 2021-03-03 04:04 | ECWPNPC ---
PATIENT NAME: EDOUARD ALCALA : 1985 GENDER: FEMALE VISIT DATE: 02/27/2021 DISCHARGE DATE: 02/27/21 1355 VISIT LOCKED DATE TIME: PHYSICIAN: JENNIFER ROBLES RESOURCE: JENNIFER ROBLES REASON FOR APPOINTMENT 1. BACK PAIN HISTORY OF PRESENT ILLNESS DEPRESSION SCREENING: PHQ-9 LITTLE INTEREST OR PLEASURE IN DOING THINGSSEVERAL DAYS FEELING DOWN, DEPRESSED, OR HOPELESSMORE THAN HALF THE DAYS TROUBLE FALLING OR STAYING ASLEEP, OR SLEEPING TOO MUCHNEARLY EVERY DAY FEELING TIRED OR HAVING LITTLE ENERGYNEARLY EVERY DAY POOR APPETITE OR OVEREATING NOT AT ALL FEELING BAD ABOUT YOURSELF-OR THAT YOU ARE A FAILURE OR HAVE LET YOURSELF OR YOUR FAMILY DOWN NOT AT ALL TROUBLE CONCENTRATING ON THINGS, SUCH READING THE NEWSPAPER OR WATCHING TELEVISION NEARLY EVERY DAY MOVING OR SPEAKING SO SLOWLY THAT OTHER PEOPLE COULD HAVE NOTICED. OR THE OPPOSITE- BEING SO FIDGETY OR RESTLESS THAT YOU HAVE BEEN MOVING AROUND A LOT MORE THAN USUALNOT AT ALL THOUGHTS THAT YOU WOULD BE BETTER OFF , OR OF HURTING YOURSELF IN SOME WAY?NOT AT ALL TOTAL SCORE:12 INTERPRETATIONMODERATE DEPRESSION PHQ-2 (2015 EDITION) LITTLE INTEREST OR PLEASURE IN DOING THINGS?MORE THAN HALF THE DAYS FEELING DOWN, DEPRESSED, OR HOPELESS?SEVERAL DAYS TOTAL SCORE3 35-YEAR-OLD FEMALE IN FOR CHRONIC PAIN FOLLOW-UP. PATIENT HAS NOT BEEN SEEN IN CLINIC FOR APPROXIMATELY 7 MONTHS SHE WAS . HOWEVER, PATIENT HAS SINCE DELIVERED HER BABY AND RETURNS WITH COMPLAINTS OF LOW BACK PAIN. GENERAL: -. FALL RISK SCREENING: SCREENING 02/26/2021 ONE FALL HAD A CUT ON HER KNEE DID NOT GO THE ER. PAIN SCREENING: PATIENT HAS A COMPLAINT OF ACUTE OR CHRONIC PAIN :YES LOCATION OF PAIN:LOW BACK INTENSITY OF PAIN (SCALE OF 1 TO 10):8 WHAT DOES YOUR PAIN FEEL LIKE:ACHING, BURNING, THROBBING DURATION:CONTINOUS, CONSTANT, ALL DAY PAIN IS INCREASED BY:ACTIVITIES PAIN IS DECREASED BY:USE OF PAIN MEDICATIONS NURSING NOTE: -. PAIN CENTER INTAKE QUESTIONS: DO YOU HAVE A HISTORY OF MRSA? :NO DO YOU TAKE A BLOOD THINNERS? :NO DO YOU HAVE ANY BLEEDING DISORDERS? :NO ANY NEW NUMBNESS OR WEAKNESS IN YOUR LEGS OR ARMS? :NO ANY PACEMAKER,DEFIBRILLATOR, OR DORSAL COLUMN STIMULATOR? :NO DO YOU HAVE ANY RASHES OR OPEN SORES? :NO ARE YOU ALLERGIC TO IV DYE? :YES ARE YOU DIABETIC? :NO ANY NEW PROBLEMS WITH YOUR MEDICATIONS? :NO HAVE YOU RECEIVED A VACCINE IN THE PAST 30 DAYS? :NO DO YOU PLAN TO RECEIVE A VACCINE IN THE NEXT 21 DAYS? :NO DO YOU NEED ANY PRESCRIPTION? :YES NORCO AND TIZANIDINE DO YOU TAKE ANY IMMUNOSUPPRESSIVE MEDICATIONS? :NO IS THERE A CHANCE YOU COULD BE ? :NO WAS 02/18/2021 ARE YOU BREAST FEEDING? :NO CURRENT MEDICATIONS TAKING PRAZOSIN HCL 2 MG CAPSULE 1-2 CAPSULE AT BEDTIME ORALLY ONCE A DAY PRN TAKING VITAMIN D 2000 UNIT CAPSULE 1 CAPSULE ORALLY ONCE A DAY TAKING TYLENOL 325 MG TABLET 2 TABLETS NEEDED ORALLY EVERY 6 HRS TAKING DESVENLAFAXINE SUCCINATE ER 100 MG TABLET EXTENDED RELEASE 24 HOUR 1 TABLET ORALLY ONCE A DAY TAKING TIZANIDINE HCL 4 MG TABLET 1 TABLET NEEDED ORALLY BEFORE BEDTIME MAY REPEAT IN 5 HRS MDD2 TAKING METOPROLOL TARTRATE 25 MG TABLET 1 TABLET WITH FOOD ORALLY TWICE A DAY TAKING TRIAMTERENE-HCTZ 37.5-25 MG CAPSULE 1 CAPSULE IN THE MORNING ORALLY BID TAKING DOXYCYCLINE 40 MG CAPSULE DELAYED RELEASE 1 CAPSULE IN THE MORNING ON AN EMPTY STOMACH ORALLY ONCE A DAY, NOTES: UNSURE OF DOSAGE TAKING HYDROXYZINE HCL 50 MG TABLET 1 TABLET NEEDED ORALLY EVERY 6 HRS TAKING ZOLPIDEM TARTRATE 10 MG TABLET 1 TABLET AT BEDTIME NEEDED ORALLY ONCE A DAY TAKING NORCO 7.5-325 MG TABLET 1 TABLET NEEDED ORALLY TWICE DAILY PRN PAIN MDD=2 45 TABS TO LAST 30 DAYS TAKING BACTRIM DS 800-160 MG TABLET 1 TABLET ORALLY TWICE A DAY NOT-TAKING LASIX 40 MG TABLET 1 TABLET ORALLY ONCE A DAY, NOTES: NOT SURE OF DOSE NOT-TAKING TIZANIDINE HCL 4 MG TABLET 1 ORALLY BEFORE BEDTIME MAY REPEAT IN 4HRS MDD2 NOT-TAKING ALPRAZOLAM 0.5 MG TABLET 1 TABLET ORALLY DAILY NOT-TAKING CLONIDINE HCL 0.1 MG TABLET 1 TABLET AT BEDTIME ORALLY TID PRN NOT-TAKING PROTONIX 40 MG TABLET DELAYED RELEASE 1 TABLET ORALLY ONCE A DAY NOT-TAKING CARAFATE 1 GM TABLET 1 TABLET ON AN EMPTY STOMACH ORALLY QID NOT-TAKING BUSPIRONE HCL 5 MG TABLET 1 TABLET ORALLY TWICE A DAY NOT-TAKING MICROGESTIN 1.5/30 1.5-30 MG-MCG TABLET 1 TABLET ORALLY ONCE A DAY NOT-TAKING HYDROXYZINE HCL 50 MG TABLET 1 TABLET NEEDED ORALLY TID NOT-TAKING FLUCONAZOLE 150 MG TABLET 1 TABLET ORALLY WEEKLY NOT-TAKING TRAZODONE HCL 150 MG TABLET 1 TABLET AT BEDTIME ORALLY ONCE A DAY NOT-TAKING HYDROCODONE-ACETAMINOPHEN 5-325 MG TABLET 1 TABLET NEEDED ORALLY DAILY FOR PAIN MDD1 NOT-TAKING VITAMIN D (ERGOCALCIFEROL) 30440 UNIT CAPSULE 1 CAPSULE ORALLY MEDICATION LIST REVIEWED AND RECONCILED WITH THE PATIENT PAST MEDICAL HISTORY MILD DISPLASIA ULCER BUSITIS CARPAL TUNNEL ARTHRITIS PTSD MIGRAINES SCOLIOSIS FATTY LIVER DISEASE ALLERGIES CONTRAST: HIVES - SIDE EFFECTS YLENOL WITH CODEINE: RASH - SIDE EFFECTS PENICILLIN (FOR ALLERGIES USE ONLY): HIVES - ALLERGY SURGICAL HISTORY 02/18/2021 FAMILY HISTORY FATHER: , DIAGNOSED WITH HYPERTENSION, UNSPECIFIED HEART DISEASE MOTHER: , UNSPECIFIED CEREBRAL ARTERY OCCLUSION WITH CEREBRAL INFARCTION, OTHER MALIGNANT NEOPLASM OF UNSPECIFIED SITE, DIABETES, HYPERTENSION, UNSPECIFIED HEART DISEASE SON(S): ALIVE DAUGHTER(S): ALIVE SIBLINGS: UNSPECIFIED HEART DISEASE, DIABETES, HYPERTENSION 1 SON(S) , 1 DAUGHTER(S) - HEALTHY. PT DOES NOT KNOW FAMILY HISTORY ON FATHER\\\'S SIDE. SOCIAL HISTORY GENERAL: TOBACCO USE ARE YOU A:NONSMOKER LATEX QUESTIONNAIRE LATEX ALLERGY : HAVE YOU EVER DEVELOPED ANY TYPE OF REACTION AFTER HANDLING LATEX PRODUCTS SUCH RUBBER GLOVES, CONDOMS, DIAPHRAGMS, BALLOONS, SOCKS, OR UNDERWEAR?NO LATEX ALLERGY : HAVE YOU EVER DEVELOPED ANY TYPE OF REACTION DURING OR AFTER DENTAL APPOINTMENT, VAGINAL/RECTAL EXAMINATION, SURGICAL PROCEDURE, OR ANY OTHER EXPOSURE?NO LATEX RISK : HAVE YOU EVER HAD ANY DIFFICULTY BREATHING OR HIVES AFTER EATING OR HANDLING ANY FRUITS, OR VEGETABLES; SUCH KIWI, BANANAS, STONE FRUITS, OR CHESTNUTSYES - PLEASE INDICATE : BLUE QUEVEDO LATEX RISK : DO YOU HAVE A PREVIOUS PERSONAL HISTORY OF MORE THAN NINE SURGERIES, SPINA BIFIDA, OR REPEATED CATHERIZATIONS? NO LATEX RISK : ARE YOU FREQUENTLY EXPOSED TO LATEX PRODUCTS IN YOUR OCCUPATION?NO DATE ASKED : 02/27/2021 ALCOHOL USE: NO. ALCOHOL SCREENING DID YOU HAVE A DRINK CONTAINING ALCOHOL IN THE PAST YEAR?NO POINTS0 INTERPRETATIONNEGATIVE RECREATIONAL DRUG USE DRUG USE?NO CAFFEINE CAFFEINE USE?YES HOW OFTEN AND HOW MUCH? DAILY LANGUAGE LANGUAGES SPOKEN:GREEK LEARNING BARRIERS / SPECIAL NEEDS CHANGE FROM LAST VISIT?YES BARRIERS TO LEARNING?NO HEARING IMPAIRED?NO VISION IMPAIRED?YES :CORRECTIVE LENSES COGNITIVELY IMPAIRED?NO READINESS TO LEARN?YES LEARNING PREFERENCES?NO LEARNING CAPABILITIES PRESENT?YES EMOTIONAL BARRIERS?NO SPECIAL DEVICES?NO TRUCK BRACER NEEDED?NO FROM 0-10, WHAT LEVEL IS YOUR PAIN TODAY?8 - PFS REFERRAL NEEDED?NO CLERGY REFERRAL NEEDED?NO PUBLIC HEALTH REFERRAL NEEDED?NO WAS THE PROVIDER NOTIFIED OF ANY PERTINENT INFO?NO HAS THE PATIENT BEEN EDUCATED REGARDING HIS/HER PLAN OF CARE?YES HAS THE PATIENT BEEN EDUCATED REGARDING PAIN, THE RISK FOR PAIN, THE IMPORTANCE OF EFFECTIVE PAIN MANAGEMENT, AND THE PAIN ASSESSMENT PROCESS?YES ADVANCE DIRECTIVE ADVANCE DIRECTIVE DISCUSSED WITH PATIENT:YES DECLINED INFO AT THIS TIME REVIEWED WITH PT 10/05/18 [id number] SANTOS RNREVIEWED WITH PATIENT 06/28/19 1743 NLNaima. HOSPITALIZATION/MAJOR DIAGNOSTIC PROCEDURE CHILDBIRTH REVIEW OF SYSTEMS CONSTITUTIONAL: ANY RECENT FEVER NO . CHILLS NO . WEIGHT CHANGE OF UNKNOWN REASONS NO . GASTROENTEROLOGY: NEW UNEXPLAINABLE CHANGES IN BOWEL CONTROL NO . CONSTIPATION NO . GENITOURINARY: ANY NEW CHANGE IN BLADDER CONTROL? NO . NEUROLOGY: NEW ONSET DIZZINESS OR NEUROLOGICAL CHANGES NOT MENTIONED NO . NEW NUMBNESS OR PAIN PATTERNS NOT MENTIONED AND PERTINENT TO TODAY'S VISIT NO . CARDIOLOGY: NEW CHEST PRESSURE NO . PATIENT DENIES NO . RESPIRATORY: UNEXPLAINABLE COUGH NO . NEW SHORTNESS OF BREATH NO . VITAL SIGNS WT 235.0 LBS, HT 66 IN, BMI 37.93 INDEX, BP 145/87 MM HG, HR 73 /MIN, RR 18 /MIN, TEMP 97.8 F, OXYGEN SAT % 99%, SAFE IN ENV? (Y/N) YES, NA INITIALS AW 1308T.XAVIER WRIGHT. EXAMINATION GENERAL EXAMINATION: GENERALNO ACUTE DISTRESS, WELL NOURISHED AND HYDRATED. PSYCHAPPROPRIATE MOOD AND AFFECT . LUNGS:CLEAR TO AUSCULTATION BILATERALLY, NO WHEEZES, RHONCHI, RALES. HEART:NO MURMURS, REGULAR RATE AND RHYTHM. ASSESSMENTS INTERVERTEBRAL DISC DISORDER WITH RADICULOPATHY OF LUMBAR REGION - M51.16 TREATMENT INTERVERTEBRAL DISC DISORDER WITH RADICULOPATHY OF LUMBAR REGION START HYDROCODONE-ACETAMINOPHEN TABLET, 7.5-325 MG, 1 TABLET NEEDED, ORALLY, EVERY 12 HRS PRN PAIN 45 TABS TO LAST 30 DAYS, 30 DAYS, 45 NOTES: 35-YEAR-OLD FEMALE IN FOR CHRONIC PAIN FOLLOW-UP. GIVEN PRESENTING SYMPTOMS RECOMMEND RESTARTING NORCO AND TIZANIDINE WITH FOLLOW-UP IN 3 MONTHS. PATIENT HAS EXPRESSED UNDERSTANDING OF AND WAS IN AGREEMENT WITH TREATMENT PLAN. GIVEN TIME TO ASK QUESTIONS AND EXPRESS CONCERNS. , ISTOP REGISTRY REVIEWED AND DEMONSTRATES COMPLLIANCE. (REF # [id number] ). OTHERS CONTINUE NORCO TABLET, 7.5-325 MG, 1 TABLET NEEDED, ORALLY, TWICE DAILY PRN PAIN MDD=2 45 TABS TO LAST 30 DAYS, 30 DAYS, 45 CONTINUE TIZANIDINE HCL TABLET, 4 MG, 1 TABLET NEEDED, ORALLY, BEFORE BEDTIME MAY REPEAT IN 5 HRS MDD2, 30 DAY(S), 30, REFILLS 1 PROCEDURE CODES FA211 ESTABILISHED PATIENT [facility] CHARGE DISPOSITION & COMMUNICATION FOLLOW UP 3 MONTHS (REASON: LOW BACK PAIN ) ELECTRONICALLY SIGNED BY ROSA DÍAZ ON 03/02/2021 AT 01:23 PM EDT DISCLAIMER : THIS IS A VISIT SUMMARY EXTRACTED FROM THE [employer] CHART. IT IS NOT A COPY OF THE [employer] PROGRESS NOTE. MTDD
== END ==
LOC: M PAIN 13:30
PROVIDERS: ATTEND Family Medicine
DX: M51.16 Intervertebral disc disorders with radiculopathy, lumbar region (principal); G43.909 Migraine, unspecified, not intractable, without status migrainosus; Z79.899 Other long term (current) drug therapy; Z79.891 Long term (current) use of opiate analgesic; Z88.0 Allergy status to penicillin; Z91.041 Radiographic dye allergy status; Z88.5 Allergy status to narcotic agent

== ENCOUNTER → 2021-03-27 | Outpatient (CLI) | payer OTHER, MEDICAID ==
--- NOTE | 2021-03-31 01:11 | ECWPNPC ---
PATIENT NAME: EDOUARD ALCALA : 1985 GENDER: FEMALE VISIT DATE: 03/27/2021 DISCHARGE DATE: 03/27/21 1046 VISIT LOCKED DATE TIME: PHYSICIAN: JENNIFER ROBLES RESOURCE: JENNIFER ROBLES REASON FOR APPOINTMENT 1. UTOX ALLERGIES NO[ALLERGIES VERIFIED] ASSESSMENTS CHRONIC PRESCRIPTION OPIATE USE - Z79.891 (PRIMARY) TREATMENT CHRONIC PRESCRIPTION OPIATE USE LAB: URINE TEST GROUP [facility] 03/27/2021 10:40:47 AM > LAST DOSE: HYDROCODONE 03/26/2021 AT 10PM PROCEDURE CODES FA211 ESTABILISHED PATIENT [facility] CHARGE DISPOSITION & COMMUNICATION ELECTRONICALLY SIGNED BY ROSA DÍAZ ON 03/30/2021 AT 12:22 PM EDT DISCLAIMER : THIS IS A VISIT SUMMARY EXTRACTED FROM THE [employer] CHART. IT IS NOT A COPY OF THE [employer] PROGRESS NOTE. MTDD
== END ==
LOC: M PAIN 10:15
PROVIDERS: ATTEND Family Medicine
DX: Z51.81 Encounter for therapeutic drug level monitoring (principal); Z79.891 Long term (current) use of opiate analgesic

== ENCOUNTER → 2021-03-31 | Outpatient (REF) | payer OTHER, MEDICAID ==
[2021-03-31 17:09] LABS: APPEARANCE, URINE HAZY (CLEAR); BACTERIA, URINE AUTO NEGATIVE (NEGATIVE); BILIRUBIN, URINE AUTO NEGATIVE (NEGATIVE); BLOOD, URINE BLOOD NEGATIVE (NEGATIVE); COLOR, URINE YELLOW (YELLOW); GLUCOSE, URINE (UA) AUTO NEGATIVE (NEGATIVE); KETONE, URINE AUTO NEGATIVE (NEGATIVE); LEUKOCYTE ESTERASE, URINE AUTO NEGATIVE (NEGATIVE); NITRITE, URINE AUTO NEGATIVE (NEGATIVE); PROTEIN, URINE AUTO NEGATIVE (NEGATIVE); RBC, URINE AUTO 0 /HPF (0-3); SPECIFIC GRAVITY URINE AUTO 1.016 (1.002-1.035); SQUAMOUS EPITHELIAL CELL UR AU 4 /HPF (0-6); UROBILINOGEN, URINE AUTO 0.2 mg/dL (0.0-2.0); WBC, URINE AUTO 1 /HPF (0-3)
== END ==
LOC: M LAB REF 16:28
PROVIDERS: ATTEND Physician Assistant Medical
DX: N39.0 Urinary tract infection, site not specified (principal)

== ENCOUNTER → 2021-05-26 | Outpatient (CLI) | payer OTHER, MEDICAID ==
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
== END ==
LOC: M PAIN 09:30
PROVIDERS: ATTEND Family Medicine
DX: M47.816 Spondylosis without myelopathy or radiculopathy, lumbar region (principal); G89.29 Other chronic pain; G43.909 Migraine, unspecified, not intractable, without status migrainosus; Z86.59 Personal history of other mental and behavioral disorders; Z88.0 Allergy status to penicillin; Z88.5 Allergy status to narcotic agent; Z91.041 Radiographic dye allergy status; Z79.899 Other long term (current) drug therapy

== ENCOUNTER → 2021-07-08 | Outpatient (CLI) | payer OTHER ==
[~2021-07-08] MED LIST changes: +DOK1CAP4 PO; -DOK1CAP7 PO
[2021-07-08 09:38] LABS: HEMATOCRIT 40.8 % (36.0-47.0); HEMOGLOBIN 13.5 g/dl (12.0-15.5); MEAN CORPUSCULAR HEMOGLOBIN 29.8 pg (27.0-33.0); MEAN CORPUSCULAR HGB CONC 33.1 g/dl (32.0-36.5); MEAN CORPUSCULAR VOLUME 90.1 fl (80.0-96.0); PLATELET COUNT, AUTOMATED 260 10^3/uL (150-450); RED BLOOD COUNT 4.53 10^6/uL (4.00-5.40); WHITE BLOOD COUNT 7.7 10^3/uL (4.0-10.0)
[2021-07-08 10:09] LABS: ALBUMIN 3.9 GM/DL (3.2-5.2); ALT/SGPT 40 U/L (12-78); BILIRUBIN,TOTAL 0.6 MG/DL (0.2-1.0); BLOOD UREA NITROGEN 14 MG/DL (7-18); CALCIUM LEVEL 9.3 MG/DL (8.5-10.1); CARBON DIOXIDE LEVEL 29 MEQ/L (21-32); CHLORIDE LEVEL 105 MEQ/L (98-107); CHOLESTEROL LEVEL 214 MG/DL (<200); CHOLESTEROL RISK RATIO 5.631 (<5); CREATININE FOR GFR 0.64 MG/DL (0.55-1.30); GLOMERULAR FILTRATION RATE > 60.0 (>60); GLUCOSE, FASTING 109 MG/DL (70-100); HDL CHOLESTEROL 38 MG/DL (>40); LDL CHOLESTEROL 103 MG/DL (<100); NON-HDL-C 176 MG/DL; POTASSIUM SERUM 4.2 MEQ/L (3.5-5.1); SODIUM LEVEL 138 MEQ/L (136-145); TOTAL PROTEIN 7.2 GM/DL (6.4-8.2); TRIGLYCERIDES LEVEL 367 MG/DL (<150)
[2021-07-08 10:32] LABS: HEMOGLOBIN A1c 5.7 %
== END ==
LOC: M LAB 08:02
PROVIDERS: ATTEND Family Medicine
DX: D64.9 Anemia, unspecified (principal); R53.83 Other fatigue; E03.9 Hypothyroidism, unspecified

== ENCOUNTER → 2021-08-28 | Outpatient (REF) | payer OTHER | LOC: M LAB REF 12:28 | PROVIDERS: ATTEND Physician Assistant | DX: R50.9 Fever, unspecified (principal) ==

== ENCOUNTER → 2021-09-10 | Outpatient (REF) | payer OTHER | LOC: M LAB REF 11:10 | PROVIDERS: ATTEND Physician Assistant | DX: R50.9 Fever, unspecified (principal) ==

== ENCOUNTER → 2021-10-28 | Outpatient (CLI) | payer OTHER, MEDICAID | LOC: M PAIN 10:00 | PROVIDERS: ATTEND Anesthesiology | DX: M54.50 Low back pain, unspecified (principal); M79.18 Myalgia, other site; M54.2 Cervicalgia; E11.9 Type 2 diabetes mellitus without complications; K76.0 Fatty (change of) liver, not elsewhere classified; M41.9 Scoliosis, unspecified; G43.909 Migraine, unspecified, not intractable, without status migrainosus; F43.10 Post-traumatic stress disorder, unspecified; Z79.891 Long term (current) use of opiate analgesic; Z79.899 Other long term (current) drug therapy; Z91.041 Radiographic dye allergy status; Z88.0 Allergy status to penicillin; Z88.5 Allergy status to narcotic agent ==

== ENCOUNTER → 2021-11-26 | Outpatient (REF) | LOC: M LABSMTC 10:38 | PROVIDERS: ATTEND Pediatrics | DX: Z11.52 Encounter for screening for COVID-19 (principal); Z20.822 Contact with and (suspected) exposure to COVID-19 ==

== ENCOUNTER 2021-12-14 20:56 | Emergency (ER) | payer MEDICAID, OTHER ==
[~2021-12-14] VITALS: Ht 167.6 cm; Wt 112.3 kg
[2021-12-14 21:03] VITALS: BP 125/74
== END 2021-12-15 02:26 | disposition left against medical advice (07) ==
LOC: M ED 20:56
DX: Z53.29 Procedure and treatment not carried out because of patient's decision for other reasons (principal)

== ENCOUNTER 2022-02-06 17:22 | Emergency (ER) | payer MEDICAID, OTHER ==
[2022-02-06 17:22] VITALS: BP 127/60
[2022-02-06] MEDS ORDERED: METF-838 (17:28)
[2022-02-06] MEDS ORDERED: FAMO40TA3 PO (17:28)
[2022-02-06] MEDS ORDERED: ASPI81CH33 PO (17:28)
== END 2022-02-06 18:29 | disposition left against medical advice (07) ==
LOC: M ED 17:22
DX: Z53.29 Procedure and treatment not carried out because of patient's decision for other reasons (principal)

== ENCOUNTER 2022-02-06 17:53 | Outpatient (CLI) | payer OTHER, MEDICAID ==
[~2022-02-06] VITALS: Ht 167.6 cm; Wt 111.4 kg
[~2022-02-06 17:53] MED LIST changes: +ASPI81CH33 PO; +FAMO40TA3 PO; +METF-838
[2022-02-06 18:17] VITALS: BP 117/62
[2022-02-06] MEDS ORDERED: HOME MED LIST COMPLETE! XX SCH (18:20)
[2022-02-06 18:59] LABS: APPEARANCE, URINE HAZY (CLEAR); BACTERIA, URINE AUTO NEGATIVE (NEGATIVE); BILIRUBIN, URINE AUTO NEGATIVE (NEGATIVE); BLOOD, URINE BLOOD NEGATIVE (NEGATIVE); COLOR, URINE YELLOW (YELLOW); GLUCOSE, URINE (UA) AUTO NEGATIVE (NEGATIVE); KETONE, URINE AUTO TRACE mg/dL (NEGATIVE); LEUKOCYTE ESTERASE, URINE AUTO NEGATIVE (NEGATIVE); MUCUS, URINE SMALL (NEGATIVE); NITRITE, URINE AUTO NEGATIVE (NEGATIVE); PROTEIN, URINE AUTO NEGATIVE (NEGATIVE); RBC, URINE AUTO 1 /HPF (0-3); SPECIFIC GRAVITY URINE AUTO 1.025 (1.002-1.035); SQUAMOUS EPITHELIAL CELL UR AU 2 /HPF (0-6); WBC, URINE AUTO 1 /HPF (0-3)
[2022-02-06 19:11] VITALS: BP 127/73
== END 2022-02-06 19:43 | disposition home or self-care (01) ==
LOC: M LDO 17:53
PROVIDERS: ATTEND Specialist
DX: O26.892 Other specified pregnancy related conditions, second trimester (principal); M54.50 Low back pain, unspecified; O36.8120 Decreased fetal movements, second trimester, not applicable or unspecified; O09.512 Supervision of elderly primigravida, second trimester; Z3A.25 25 weeks gestation of pregnancy

== ENCOUNTER → 2022-06-23 | Outpatient (CLI) | payer MEDICAID, OTHER ==
[~2022-06-23] MED LIST changes: -TRIA37.53; +TRIA37.577
== END ==
LOC: M LAB 11:03
PROVIDERS: ATTEND Anesthesiology
DX: M54.50 Low back pain, unspecified (principal)

== ENCOUNTER → 2022-06-23 | Outpatient (CLI) | payer OTHER, MEDICAID | LOC: M PAIN 10:00 | PROVIDERS: ATTEND Anesthesiology | DX: M54.50 Low back pain, unspecified (principal); F43.10 Post-traumatic stress disorder, unspecified; G43.909 Migraine, unspecified, not intractable, without status migrainosus; M41.9 Scoliosis, unspecified; K76.0 Fatty (change of) liver, not elsewhere classified; E11.9 Type 2 diabetes mellitus without complications; Z79.84 Long term (current) use of oral hypoglycemic drugs; Z79.891 Long term (current) use of opiate analgesic; Z79.899 Other long term (current) drug therapy; Z91.041 Radiographic dye allergy status; Z88.0 Allergy status to penicillin; Z88.6 Allergy status to analgesic agent; Z88.5 Allergy status to narcotic agent ==

== ENCOUNTER → 2022-06-28 | Outpatient (CLI) | payer OTHER, MEDICAID | LOC: M PAIN 08:30 | PROVIDERS: ATTEND Anesthesiology | DX: M54.50 Low back pain, unspecified (principal); F43.10 Post-traumatic stress disorder, unspecified; G43.909 Migraine, unspecified, not intractable, without status migrainosus; M41.9 Scoliosis, unspecified; K76.0 Fatty (change of) liver, not elsewhere classified; E11.9 Type 2 diabetes mellitus without complications; Z79.84 Long term (current) use of oral hypoglycemic drugs; Z79.891 Long term (current) use of opiate analgesic; Z79.899 Other long term (current) drug therapy; Z88.0 Allergy status to penicillin; Z88.5 Allergy status to narcotic agent; Z91.041 Radiographic dye allergy status ==

== ENCOUNTER 2022-08-13 06:18 | Emergency (ER) | payer MEDICAID, OTHER ==
[~2022-08-13] VITALS: Ht 167.6 cm; Wt 104.5 kg
[2022-08-13] MEDS ORDERED: KETOROLAC 30 MG/ML 1ML VIAL IV ONE (07:00)
[2022-08-13 07:30] LABS: BASO % 0.4 % (0.0-1.0); EOS # 0.1 10^3/uL (0.0-0.5); EOS % 1.7 % (0.0-3.0); HEMOGLOBIN 12.9 g/dl (12.0-15.5); LYMPH # 2.9 10^3/uL (1.5-5.0); LYMPH % 41.2 % (24.0-44.0); MEAN CORPUSCULAR HEMOGLOBIN 30.1 pg (27.0-33.0); MEAN CORPUSCULAR HGB CONC 33.9 g/dl (32.0-36.5); MEAN CORPUSCULAR VOLUME 88.6 fl (80.0-96.0); MONO # 0.5 10^3/uL (0.0-0.8); MONO % 6.8 % (2.0-8.0); NEUTROPHILS # 3.5 10^3/uL (1.5-8.5); NEUTROPHILS % 49.6 % (36.0-66.0); PLATELET COUNT, AUTOMATED 263 10^3/uL (150-450); RED BLOOD COUNT 4.29 10^6/uL (4.00-5.40)
[2022-08-13 07:43] LABS: INR 0.83; PARTIAL THROMBOPLASTIN TIME 26.2 SECONDS (25.9-37.0); PROTHROMBIN TIME 11.8 SECONDS (12.7-14.5)
[2022-08-13 08:04] LABS: HCG, SERUM QUALITATIVE NEGATIVE (NEGATIVE)
[2022-08-13 08:08] LABS: CK-MB VALUE MASS < 1.0 NG/ML (<3.6); CPK CREATINE PHOSPHOKINASE 78 U/L (26-192); MB/CK RELATIVE INDEX 1.28 (< OR =4)
[2022-08-13 08:12] LABS: ALBUMIN 3.7 GM/DL (3.2-5.2); ALT/SGPT 36 U/L (12-78); BILIRUBIN,DIRECT 0.1 MG/DL (0.0-0.2); BILIRUBIN,TOTAL 0.3 MG/DL (0.2-1.0); BLOOD UREA NITROGEN 6 MG/DL (7-18); CARBON DIOXIDE LEVEL 24 MEQ/L (21-32); CHLORIDE LEVEL 105 MEQ/L (98-107); CREATININE FOR GFR 0.72 MG/DL (0.55-1.30); GLOMERULAR FILTRATION RATE > 60.0 (>60); GLUCOSE, FASTING 102 MG/DL (70-100); LIPASE 101 U/L (73-393); NT-PRO BNP 129 PG/ML (<125); POTASSIUM SERUM 4.2 MEQ/L (3.5-5.1); SODIUM LEVEL 137 MEQ/L (136-145); TOTAL PROTEIN 7.1 GM/DL (6.4-8.2)
[2022-08-13] MEDS ORDERED: MORPHINE 4 MG/ML 1ML VIAL/SYRINGE IV ONE (08:35)
[2022-08-13] MEDS ORDERED: ONDANSETRON 4MG 2ML VIAL IV ONE (08:35)
[2022-08-13 09:06] LABS: CK-MB VALUE MASS < 1.0 NG/ML (<3.6); CPK CREATINE PHOSPHOKINASE 48 U/L (26-192); MB/CK RELATIVE INDEX 2.08 (< OR =4)
[2022-08-13 09:30] VITALS: BP 126/74
== END 2022-08-13 09:35 | disposition home or self-care (01) ==
LOC: M ED 06:18
DX: R07.9 Chest pain, unspecified (principal); S46.912A Strain of unspecified muscle, fascia and tendon at shoulder and upper arm level, left arm, initial encounter; E11.9 Type 2 diabetes mellitus without complications; I10 Essential (primary) hypertension; Z79.82 Long term (current) use of aspirin; Z79.84 Long term (current) use of oral hypoglycemic drugs; Z88.0 Allergy status to penicillin; Z88.5 Allergy status to narcotic agent; Z91.041 Radiographic dye allergy status
CPT/HCPCS: 71046; 80048; 80076; 82550; 82553; 83690; 83880; 84703; 85025; 85610; 85730; 93005; 93041; 94760; 96374; 96375; 99285; J1885; J2270; J2405

== ENCOUNTER → 2022-10-21 | Outpatient (REF) | payer OTHER | LOC: M LAB REF 21:48 | PROVIDERS: ATTEND Physician Assistant | DX: B34.9 Viral infection, unspecified (principal) ==

== ENCOUNTER → 2022-11-02 | Outpatient (CLI) | payer OTHER, MEDICAID | LOC: M PAIN 08:45 | PROVIDERS: ATTEND Nurse Practitioner Family | DX: M54.42 Lumbago with sciatica, left side (principal); M54.41 Lumbago with sciatica, right side; G89.29 Other chronic pain; E11.9 Type 2 diabetes mellitus without complications; G43.909 Migraine, unspecified, not intractable, without status migrainosus; Z86.59 Personal history of other mental and behavioral disorders; Z88.0 Allergy status to penicillin; Z88.5 Allergy status to narcotic agent; Z91.041 Radiographic dye allergy status; Z79.84 Long term (current) use of oral hypoglycemic drugs; Z79.899 Other long term (current) drug therapy ==

== ENCOUNTER → 2022-11-23 | Outpatient (CLI) | payer OTHER, MEDICAID | LOC: M PAIN 09:30 | PROVIDERS: ATTEND Nurse Practitioner Family | DX: Z79.891 Long term (current) use of opiate analgesic (principal); G43.909 Migraine, unspecified, not intractable, without status migrainosus; Z86.59 Personal history of other mental and behavioral disorders; Z88.0 Allergy status to penicillin; Z88.5 Allergy status to narcotic agent; Z91.041 Radiographic dye allergy status; Z79.82 Long term (current) use of aspirin; Z79.899 Other long term (current) drug therapy ==

== ENCOUNTER → 2022-11-24 | Outpatient (REF) | payer OTHER, MEDICAID | LOC: M LAB REF 12:24 | PROVIDERS: ATTEND Physician Assistant | DX: R05.9 Cough, unspecified (principal) ==

== ENCOUNTER 2022-12-14 08:22 | Emergency (ER) | payer MEDICAID, OTHER ==
[~2022-12-14] VITALS: Ht 167.6 cm; Wt 109.1 kg
[2022-12-14 08:23] VITALS: BP 130/75
[2022-12-14] MEDS ORDERED: CYMB1CAP5 (08:32)
[2022-12-14] MEDS ORDERED: CLON0.5T2 (08:32)
[2022-12-14] MEDS ORDERED: ZOLP10TA2 (08:32)
[2022-12-14] MEDS ORDERED: METO1TAB87 (08:32)
[2022-12-14] MEDS ORDERED: NORE1TAB73 (08:32)
[2022-12-14] MEDS ORDERED: TIZA10TA (08:32)
[2022-12-14] MEDS ORDERED: HYDR-3716 (08:32)
== END 2022-12-14 11:07 | disposition left against medical advice (07) ==
LOC: M ED 08:22
DX: Z53.21 Procedure and treatment not carried out due to patient leaving prior to being seen by health care provider (principal)

== ENCOUNTER → 2023-02-24 | Outpatient (CLI) | payer OTHER, MEDICAID ==
[~2023-02-24] MED LIST changes: +CLON0.5T2; +CYMB1CAP5; +HYDR-3716; +METO1TAB87; +NORE1TAB73; +TIZA10TA; +ZOLP10TA2
== END ==
LOC: M PAIN 10:45
PROVIDERS: ATTEND Nurse Practitioner Family
DX: M51.16 Intervertebral disc disorders with radiculopathy, lumbar region (principal); G89.29 Other chronic pain; E11.9 Type 2 diabetes mellitus without complications; G43.909 Migraine, unspecified, not intractable, without status migrainosus; Z86.59 Personal history of other mental and behavioral disorders; Z88.0 Allergy status to penicillin; Z88.5 Allergy status to narcotic agent; Z91.041 Radiographic dye allergy status; Z79.82 Long term (current) use of aspirin; Z79.84 Long term (current) use of oral hypoglycemic drugs; Z79.899 Other long term (current) drug therapy

== ENCOUNTER → 2023-04-11 | Outpatient (CLI) | payer OTHER ==
[2023-04-11 09:52] LABS: HEMATOCRIT 39.9 % (36.0-47.0); HEMOGLOBIN 13.2 g/dl (12.0-15.5); MEAN CORPUSCULAR HEMOGLOBIN 30.3 pg (27.0-33.0); MEAN CORPUSCULAR HGB CONC 33.1 g/dl (32.0-36.5); MEAN CORPUSCULAR VOLUME 91.7 fl (80.0-96.0); PLATELET COUNT, AUTOMATED 252 10^3/uL (150-450); RED BLOOD COUNT 4.35 10^6/uL (4.00-5.40); WHITE BLOOD COUNT 7.6 10^3/uL (4.0-10.0)
[2023-04-11 10:19] LABS: HEMOGLOBIN A1c 5.4 % (4.0-6.0)
[2023-04-11 10:28] LABS: ALBUMIN 3.8 G/DL (3.2-5.2); ALKALINE PHOSPHATASE 53 U/L (46-116); ALT/SGPT 36 U/L (7.0-40); AST/SGOT 24 U/L (<34); BILIRUBIN,TOTAL 0.5 MG/DL (0.3-1.2); BLOOD UREA NITROGEN 8 MG/DL (9-23); CALCIUM LEVEL 9.1 MG/DL (8.5-10.1); CARBON DIOXIDE LEVEL 27 MMOL/L (20-31); CHLORIDE LEVEL 102 MMOL/L (98-107); CHOLESTEROL LEVEL 188 MG/DL (<200); CHOLESTEROL RISK RATIO 4.82 (<5); CREATININE FOR GFR 0.56 MG/DL (0.55-1.30); GLOMERULAR FILTRATION RATE > 60.0 (>60); GLUCOSE, FASTING 101 MG/DL (60-100); LDL CHOLESTEROL 95.2 MG/DL (<100); POTASSIUM SERUM 4.5 MMOL/L (3.5-5.1); SODIUM LEVEL 138 MMOL/L (136-145); TOTAL PROTEIN 6.6 G/DL (5.7-8.2); TRIGLYCERIDES LEVEL 269 MG/DL (<150)
[2023-04-11 10:33] LABS: THYROID STIMULATING HORMONE 1.423 uIU/ML (0.55-4.78); TOTAL 25(OH) VITAMIN D 19.4 NG/ML (20.0-100.0)
== END ==
LOC: M LAB 08:30
PROVIDERS: ATTEND Family Medicine
DX: D64.9 Anemia, unspecified (principal); E03.9 Hypothyroidism, unspecified; R53.83 Other fatigue

== ENCOUNTER → 2023-04-11 | Outpatient (CLI) | payer OTHER ==
[2023-04-11 10:30] LABS: THYROID STIMULATING HORMONE 1.522 uIU/ML (0.55-4.78)
[2023-04-11 10:31] LABS: FREE T4 1.1 NG/DL (0.89-1.76)
== END ==
LOC: M LAB 08:29
PROVIDERS: ATTEND Obstetrics & Gynecology Obstetrics
DX: N92.0 Excessive and frequent menstruation with regular cycle (principal)

== ENCOUNTER → 2023-04-26 | Outpatient (CLI) | payer OTHER | LOC: M RAD 10:42 | PROVIDERS: ATTEND Obstetrics & Gynecology Obstetrics | DX: N92.0 Excessive and frequent menstruation with regular cycle (principal) ==

== ENCOUNTER → 2023-07-01 | Outpatient (CLI) | payer OTHER, MEDICAID | LOC: M PAIN 11:45 | PROVIDERS: ATTEND Nurse Practitioner Family | DX: M54.50 Low back pain, unspecified (principal); G89.29 Other chronic pain; F43.10 Post-traumatic stress disorder, unspecified; M19.90 Unspecified osteoarthritis, unspecified site; G43.909 Migraine, unspecified, not intractable, without status migrainosus; M41.9 Scoliosis, unspecified; K76.0 Fatty (change of) liver, not elsewhere classified; E11.9 Type 2 diabetes mellitus without complications; Z79.891 Long term (current) use of opiate analgesic; Z79.84 Long term (current) use of oral hypoglycemic drugs; Z79.899 Other long term (current) drug therapy; Z88.0 Allergy status to penicillin; Z88.5 Allergy status to narcotic agent; Z88.8 Allergy status to other drugs, medicaments and biological substances; Z91.030 Bee allergy status; Z91.040 Latex allergy status; Z91.038 Other insect allergy status; Z91.048 Other nonmedicinal substance allergy status ==

== ENCOUNTER → 2023-07-05 | Outpatient (CLI) | payer OTHER ==
[2023-07-05 08:46] LABS: HEMATOCRIT 38.4 % (36.0-47.0); MEAN CORPUSCULAR HEMOGLOBIN 31.2 pg (27.0-33.0); MEAN CORPUSCULAR HGB CONC 33.9 g/dl (32.0-36.5); MEAN CORPUSCULAR VOLUME 92.1 fl (80.0-96.0); PLATELET COUNT, AUTOMATED 251 10^3/uL (150-450); RED BLOOD COUNT 4.17 10^6/uL (4.00-5.40); WHITE BLOOD COUNT 7.1 10^3/uL (4.0-10.0)
[2023-07-05 09:09] LABS: HEMOGLOBIN A1c 5.9 % (4.0-6.0)
[2023-07-05 09:15] LABS: ALBUMIN 3.7 G/DL (3.2-5.2); ALKALINE PHOSPHATASE 59 U/L (46-116); ALT/SGPT 55 U/L (7.0-40); AST/SGOT 22 U/L (<34); BILIRUBIN,TOTAL 0.3 MG/DL (0.3-1.2); BLOOD UREA NITROGEN 9 MG/DL (9-23); CALCIUM LEVEL 9.4 MG/DL (8.5-10.1); CARBON DIOXIDE LEVEL 24 MMOL/L (20-31); CHLORIDE LEVEL 105 MMOL/L (98-107); CHOLESTEROL LEVEL 138 MG/DL (<200); CHOLESTEROL RISK RATIO 4.75 (<5); CREATININE FOR GFR 0.62 MG/DL (0.55-1.30); GLOMERULAR FILTRATION RATE > 60.0 (>58); GLUCOSE, FASTING 120 MG/DL (60-100); LDL CHOLESTEROL 65.2 MG/DL (<100); POTASSIUM SERUM 4.5 MMOL/L (3.5-5.1); SODIUM LEVEL 139 MMOL/L (136-145); THYROID STIMULATING HORMONE 2.265 uIU/ML (0.55-4.78); TOTAL 25(OH) VITAMIN D 22.3 NG/ML (20.0-100.0); TOTAL PROTEIN 6.5 G/DL (5.7-8.2); TRIGLYCERIDES LEVEL 219 MG/DL (<150)
== END ==
LOC: M LAB 08:10
PROVIDERS: ATTEND Family Medicine
DX: D64.9 Anemia, unspecified (principal); E11.9 Type 2 diabetes mellitus without complications; R53.83 Other fatigue; E03.9 Hypothyroidism, unspecified

== ENCOUNTER → 2023-07-13 | Outpatient (REF) | payer OTHER | LOC: M LAB REF 12:18 | PROVIDERS: ATTEND Physician Assistant Medical | DX: B34.9 Viral infection, unspecified (principal); R19.7 Diarrhea, unspecified ==

== ENCOUNTER → 2023-08-11 | Outpatient (REF) | payer OTHER | LOC: M LAB REF 10:43 | PROVIDERS: ATTEND Physician Assistant | DX: R19.7 Diarrhea, unspecified (principal) ==

== ENCOUNTER → 2023-08-24 | Outpatient (REF) | payer OTHER | LOC: M LAB REF 16:00 | PROVIDERS: ATTEND Physician Assistant | DX: B34.9 Viral infection, unspecified (principal) ==

== ENCOUNTER → 2023-08-29 | Outpatient (CLI) | payer OTHER | LOC: M RAD 14:51 | DX: R05.9 Cough, unspecified (principal) ==

== ENCOUNTER → 2023-10-06 | Outpatient (REF) | payer OTHER | LOC: M LAB REF 16:10 | PROVIDERS: ATTEND Physician Assistant | DX: B34.9 Viral infection, unspecified (principal) ==

== ENCOUNTER → 2023-11-18 | Outpatient (CLI) | payer OTHER, MEDICAID | LOC: M PAIN 09:45 | PROVIDERS: ATTEND Nurse Practitioner Family | DX: M51.16 Intervertebral disc disorders with radiculopathy, lumbar region (principal); G89.29 Other chronic pain; Z79.82 Long term (current) use of aspirin; Z79.891 Long term (current) use of opiate analgesic; Z79.899 Other long term (current) drug therapy; Z88.0 Allergy status to penicillin; Z88.5 Allergy status to narcotic agent; Z91.041 Radiographic dye allergy status; Z91.030 Bee allergy status; Z91.038 Other insect allergy status; Z91.048 Other nonmedicinal substance allergy status ==

== ENCOUNTER → 2023-12-08 | Outpatient (CLI) | payer OTHER | LOC: M WHC 08:15 | PROVIDERS: ATTEND Nurse Practitioner Family | DX: Z12.31 Encounter for screening mammogram for malignant neoplasm of breast (principal); Z80.3 Family history of malignant neoplasm of breast; D25.9 Leiomyoma of uterus, unspecified; R92.323 Mammographic fibroglandular density, bilateral breasts ==

== ENCOUNTER → 2023-12-15 | Outpatient (CLI) | payer OTHER | LOC: M PLARAD 08:48 | PROVIDERS: ATTEND Nurse Practitioner Family | DX: M51.16 Intervertebral disc disorders with radiculopathy, lumbar region (principal) ==

== ENCOUNTER → 2023-12-16 | Outpatient (CLI) | payer OTHER ==
[2023-12-16 11:15] LABS: HEMATOCRIT 41.4 % (36.0-47.0); HEMOGLOBIN 14.1 g/dl (12.0-15.5); MEAN CORPUSCULAR HEMOGLOBIN 31.1 pg (27.0-33.0); MEAN CORPUSCULAR HGB CONC 34.1 g/dl (32.0-36.5); MEAN CORPUSCULAR VOLUME 91.4 fl (80.0-96.0); PLATELET COUNT, AUTOMATED 233 10^3/uL (150-450); RED BLOOD COUNT 4.53 10^6/uL (4.00-5.40); WHITE BLOOD COUNT 7.7 10^3/uL (4.0-10.0)
[2023-12-16 11:30] LABS: HEMOGLOBIN A1c 5.9 % (4.0-6.0)
[2023-12-16 11:43] LABS: IRON (FE) 78 UG/DL (50-170); PERCENT SATURATION 22.3 % (13.2-45.0); TOTAL IRON BINDING CAPACITY 350 UG/DL (250-425)
[2023-12-16 11:44] LABS: ALBUMIN 4.1 G/DL (3.2-5.2); ALKALINE PHOSPHATASE 50 U/L (46-116); ALT/SGPT 33 U/L (7.0-40); AST/SGOT 14 U/L (<34); BILIRUBIN,TOTAL 0.4 MG/DL (0.3-1.2); BLOOD UREA NITROGEN 11 MG/DL (9-23); CALCIUM LEVEL 9.2 MG/DL (8.5-10.1); CARBON DIOXIDE LEVEL 23 MMOL/L (20-31); CHLORIDE LEVEL 109 MMOL/L (98-107); CHOLESTEROL LEVEL 165 MG/DL (<200); CHOLESTEROL RISK RATIO 5.04 (<5); CREATININE FOR GFR 0.59 MG/DL (0.55-1.30); GLOMERULAR FILTRATION RATE > 60.0 (>58); GLUCOSE, FASTING 136 MG/DL (60-100); HDL CHOLESTEROL 32.7 MG/DL (>40); LDL CHOLESTEROL 88.5 MG/DL (<100); NON-HDL-C 132.3 MG/DL; POTASSIUM SERUM 4.5 MMOL/L (3.5-5.1); SODIUM LEVEL 140 MMOL/L (136-145); TRIGLYCERIDES LEVEL 219 MG/DL (<150)
[2023-12-16 11:45] LABS: THYROID STIMULATING HORMONE 1.149 uIU/ML (0.55-4.78); TOTAL 25(OH) VITAMIN D 15.8 NG/ML (20.0-100.0)
== END ==
LOC: M LAB 10:28
PROVIDERS: ATTEND Family Medicine
DX: I11.9 Hypertensive heart disease without heart failure (principal); D64.9 Anemia, unspecified; R53.83 Other fatigue; E03.9 Hypothyroidism, unspecified; R94.31 Abnormal electrocardiogram [ECG] [EKG]

== ENCOUNTER → 2023-12-26 | Outpatient (CLI) | payer OTHER, MEDICAID | LOC: M PAIN 10:00 | PROVIDERS: ATTEND Nurse Practitioner Family | DX: M53.3 Sacrococcygeal disorders, not elsewhere classified (principal); M51.16 Intervertebral disc disorders with radiculopathy, lumbar region; G89.29 Other chronic pain; F43.10 Post-traumatic stress disorder, unspecified; G43.909 Migraine, unspecified, not intractable, without status migrainosus; E11.9 Type 2 diabetes mellitus without complications; Z79.82 Long term (current) use of aspirin; Z79.891 Long term (current) use of opiate analgesic; Z79.899 Other long term (current) drug therapy; Z88.0 Allergy status to penicillin; Z88.5 Allergy status to narcotic agent; Z91.041 Radiographic dye allergy status; Z91.030 Bee allergy status; Z91.038 Other insect allergy status; Z91.048 Other nonmedicinal substance allergy status ==

== ENCOUNTER → 2024-02-24 | Outpatient (CLI) | payer OTHER | LOC: M RAD 13:38 | PROVIDERS: ATTEND Physician Assistant | DX: S90.32XA Contusion of left foot, initial encounter (principal); X58.XXXA Exposure to other specified factors, initial encounter; Y92.9 Unspecified place or not applicable; Y93.9 Activity, unspecified; Y99.9 Unspecified external cause status ==

== ENCOUNTER → 2024-03-27 | Outpatient (CLI) | payer OTHER, MEDICAID | LOC: M PAIN 11:15 | PROVIDERS: ATTEND Nurse Practitioner Family | DX: M53.3 Sacrococcygeal disorders, not elsewhere classified (principal); M51.16 Intervertebral disc disorders with radiculopathy, lumbar region; E11.9 Type 2 diabetes mellitus without complications; Z79.1 Long term (current) use of non-steroidal anti-inflammatories (NSAID); Z79.3 Long term (current) use of hormonal contraceptives; Z79.4 Long term (current) use of insulin; Z79.82 Long term (current) use of aspirin; Z79.83 Long term (current) use of bisphosphonates; Z79.891 Long term (current) use of opiate analgesic; Z88.0 Allergy status to penicillin; Z88.6 Allergy status to analgesic agent ==

== ENCOUNTER → 2024-07-12 | Outpatient (CLI) | payer OTHER, MEDICAID ==
[~2024-07-12] MED LIST changes: +ONDA-282 PO; -ONDA4TAB6 PO
== END ==
LOC: M PAIN 09:30
PROVIDERS: ATTEND Nurse Practitioner Family
DX: M53.3 Sacrococcygeal disorders, not elsewhere classified (principal); Z79.891 Long term (current) use of opiate analgesic; G89.29 Other chronic pain; F43.10 Post-traumatic stress disorder, unspecified; G43.909 Migraine, unspecified, not intractable, without status migrainosus; M19.90 Unspecified osteoarthritis, unspecified site; K76.0 Fatty (change of) liver, not elsewhere classified; E11.9 Type 2 diabetes mellitus without complications; M50.30 Other cervical disc degeneration, unspecified cervical region; Z79.82 Long term (current) use of aspirin; Z79.899 Other long term (current) drug therapy; Z88.0 Allergy status to penicillin; Z88.5 Allergy status to narcotic agent; Z91.041 Radiographic dye allergy status; Z91.030 Bee allergy status; Z91.038 Other insect allergy status; Z91.048 Other nonmedicinal substance allergy status

== ENCOUNTER → 2024-10-09 | Outpatient (REF) | payer OTHER, MEDICAID | LOC: M LAB REF 12:11 | PROVIDERS: ATTEND Physician Assistant Medical | DX: B34.9 Viral infection, unspecified (principal) ==

== ENCOUNTER → 2024-11-27 | Outpatient (CLI) | payer OTHER, MEDICAID | LOC: M PAIN 14:15 | PROVIDERS: ATTEND Nurse Practitioner Family | DX: M53.3 Sacrococcygeal disorders, not elsewhere classified (principal); Z79.891 Long term (current) use of opiate analgesic; G89.29 Other chronic pain; G43.909 Migraine, unspecified, not intractable, without status migrainosus; F43.10 Post-traumatic stress disorder, unspecified; E11.9 Type 2 diabetes mellitus without complications; Z79.82 Long term (current) use of aspirin; Z79.899 Other long term (current) drug therapy; Z79.84 Long term (current) use of oral hypoglycemic drugs; Z88.0 Allergy status to penicillin; Z88.5 Allergy status to narcotic agent; Z91.030 Bee allergy status; Z91.048 Other nonmedicinal substance allergy status; Z91.041 Radiographic dye allergy status; Z91.038 Other insect allergy status ==

== ENCOUNTER 2024-11-30 22:47 | Emergency (ER) | payer MEDICAID, OTHER ==
[~2024-11-30] VITALS: Ht 167.6 cm; Wt 113.6 kg
[2024-12-01 03:37] LABS: KETONE, URINE AUTO RFX TRACE mg/dL (NEGATIVE); LEUKOCYTE ESTERASE UR AUTO RFX NEGATIVE (NEGATIVE); MUCUS, URINE RFX SMALL (NEGATIVE); NITRITE, URINE AUTO RFX NEGATIVE (NEGATIVE); RBC, URINE AUTO RFX 0 /HPF (0-3); SQUAM EPITHELIAL CELL UR AURFX 5 /HPF (0-6); WBC, URINE AUTO RFX 2 /HPF (0-3)
[2024-12-01 04:27] LABS: Trichomonas vaginalis (AMP) NOT DETECTED (NEGATIVE)
[2024-12-01] MEDS: methylPREDNISolone 125MG 2ML VIAL IV ONE (04:49)
[2024-12-01] MEDS: diphenhydrAMINE 50MG/ML VIAL IV ONE (04:49)
[2024-12-01] MEDS: KETOROLAC 30 MG/ML 1ML VIAL IV ONE (04:50)
[2024-12-01] MEDS: ONDANSETRON 4MG 2ML VIAL IV ONE (04:50)
[2024-12-01 04:51] LABS: GC DNA AMPLIFICATION NEGATIVE (NEGATIVE)
[2024-12-01 04:54] LABS: BASO # 0.1 10^3/uL (0.0-0.2); BASO % 0.4 % (0.0-1.0); EOS # 0.1 10^3/uL (0.0-0.5); EOS % 0.4 % (0.0-3.0); HEMATOCRIT 38.4 % (36.0-47.0); LYMPH # 3.5 10^3/uL (1.5-5.0); LYMPH % 28.2 % (24.0-44.0); MEAN CORPUSCULAR HEMOGLOBIN 31.2 pg (27.0-33.0); MEAN CORPUSCULAR HGB CONC 33.9 g/dl (32.0-36.5); MEAN CORPUSCULAR VOLUME 92.1 fl (80.0-96.0); MONO # 0.7 10^3/uL (0.0-0.8); MONO % 5.4 % (2.0-8.0); PLATELET COUNT, AUTOMATED 255 10^3/uL (150-450); RED BLOOD COUNT 4.17 10^6/uL (4.00-5.40); WHITE BLOOD COUNT 12.3 10^3/uL (4.0-10.0)
[2024-12-01] MEDS ORDERED: ISOVUE-370 76% 100ML VIAL As Ordered ONE (05:15)
[2024-12-01 05:22] LABS: CK-MB VALUE MASS < 1.0 NG/ML (<3.6); LIPASE 35 U/L (12-53)
[2024-12-01 05:24] LABS: ALBUMIN 4.3 G/DL (3.2-5.2); ALKALINE PHOSPHATASE 54 U/L (35-104); ALT/SGPT 55 U/L (7.0-40); AST/SGOT 37 U/L (<34); BILIRUBIN,DIRECT 0.1 MG/DL (<0.4); BILIRUBIN,TOTAL 0.5 MG/DL (0.3-1.2); BLOOD UREA NITROGEN 11 MG/DL (9-23); CALCIUM LEVEL 9.2 MG/DL (8.5-10.1); CARBON DIOXIDE LEVEL 26 MMOL/L (20-31); CHLORIDE LEVEL 102 MMOL/L (98-107); GLOMERULAR FILTRATION RATE > 60.0 (>58); GLUCOSE, FASTING 106 MG/DL (60-100); HCG, SERUM QUALITATIVE NEGATIVE (NEGATIVE); SODIUM LEVEL 140 MMOL/L (136-145); TOTAL PROTEIN 7.2 G/DL (5.7-8.2)
[2024-12-01 05:26] LABS: CPK CREATINE PHOSPHOKINASE 52 U/L (34-145); MB/CK RELATIVE INDEX 1.92 (< OR =4)
[2024-12-01 07:06] LABS: CK-MB VALUE MASS < 1.0 NG/ML (<3.6)
[2024-12-01 07:08] LABS: CPK CREATINE PHOSPHOKINASE 37 U/L (34-145)
[2024-12-01 08:29] VITALS: BP 129/72; TEMP 97.9; O2SAT 94
== END 2024-12-01 08:35 | disposition home or self-care (01) ==
LOC: EDBD 22:47 → M ED 22:47
DX: G89.29 Other chronic pain (principal); R10.2 Pelvic and perineal pain; M54.9 Dorsalgia, unspecified; D25.9 Leiomyoma of uterus, unspecified; Z88.0 Allergy status to penicillin; Z88.5 Allergy status to narcotic agent; Z91.041 Radiographic dye allergy status; Z79.84 Long term (current) use of oral hypoglycemic drugs; Z79.899 Other long term (current) drug therapy
CPT/HCPCS: 74177; 80048; 80076; 81001; 82550; 82553; 83605; 83690; 84484; 84703; 85025; 87661; 87810; 87850; 93041; 96374; 96375; 99285; J1200; J1885; J2405; J2919; Q9967

== ENCOUNTER → 2024-12-24 | Outpatient (CLI) | payer OTHER, MEDICAID | LOC: M PAIN 16:30 | PROVIDERS: ATTEND Nurse Practitioner Family | DX: M53.3 Sacrococcygeal disorders, not elsewhere classified (principal); G89.29 Other chronic pain; E11.9 Type 2 diabetes mellitus without complications; Z79.82 Long term (current) use of aspirin; Z79.84 Long term (current) use of oral hypoglycemic drugs; Z79.891 Long term (current) use of opiate analgesic; Z79.899 Other long term (current) drug therapy; Z88.0 Allergy status to penicillin; Z91.030 Bee allergy status; Z88.5 Allergy status to narcotic agent; Z91.041 Radiographic dye allergy status; Z91.038 Other insect allergy status; Z91.048 Other nonmedicinal substance allergy status ==

== ENCOUNTER → 2025-03-21 | Outpatient (CLI) | payer OTHER ==
[2025-03-21 09:54] LABS: HEMATOCRIT 40.1 % (36.0-47.0); HEMOGLOBIN 13.4 g/dl (12.0-15.5); MEAN CORPUSCULAR HEMOGLOBIN 30.7 pg (27.0-33.0); MEAN CORPUSCULAR HGB CONC 33.4 g/dl (32.0-36.5); PLATELET COUNT, AUTOMATED 245 10^3/uL (150-450); RED BLOOD COUNT 4.36 10^6/uL (4.00-5.40); WHITE BLOOD COUNT 8.3 10^3/uL (4.0-10.0)
[2025-03-21 10:16] LABS: ALKALINE PHOSPHATASE 60 U/L (35-104); ALT/SGPT 35 U/L (7.0-40); AST/SGOT 18 U/L (<34); BILIRUBIN,TOTAL 0.3 MG/DL (0.3-1.2); BLOOD UREA NITROGEN 10 MG/DL (9-23); CALCIUM LEVEL 9.6 MG/DL (8.5-10.1); CARBON DIOXIDE LEVEL 26 MMOL/L (20-31); CHLORIDE LEVEL 105 MMOL/L (98-107); CHOLESTEROL LEVEL 174 MG/DL (<200); CHOLESTEROL RISK RATIO 5.45 (<5); CREATININE FOR GFR 0.57 MG/DL (0.55-1.30); GLOMERULAR FILTRATION RATE > 90.0 (>58); GLUCOSE, FASTING 104 MG/DL (60-100); HDL CHOLESTEROL 31.9 MG/DL (>40); LDL CHOLESTEROL 86.1 MG/DL (<100); NON-HDL-C 142.1 MG/DL; POTASSIUM SERUM 4.7 MMOL/L (3.5-5.1); SODIUM LEVEL 140 MMOL/L (136-145); TRIGLYCERIDES LEVEL 280 MG/DL (<150)
[2025-03-21 10:18] LABS: THYROID STIMULATING HORMONE 1.578 uIU/ML (0.55-4.78); TOTAL 25(OH) VITAMIN D 29.6 NG/ML (20.0-100.0)
[2025-03-21 10:26] LABS: HEMOGLOBIN A1c 5.8 % (4.0-6.0)
== END ==
LOC: M RAD 09:05
PROVIDERS: ATTEND Family Medicine
DX: R10.11 Right upper quadrant pain (principal); I10 Essential (primary) hypertension; E11.9 Type 2 diabetes mellitus without complications; R53.83 Other fatigue

== ENCOUNTER → 2025-09-15 | Outpatient (REF) | payer OTHER, MEDICAID ==
[~2025-09-15] MED LIST changes: +ZOLP10TA11; -ZOLP10TA2; -ZOLP5TAB PO; +ZOLP5TAB9 PO
== END ==
LOC: M LAB REF 17:21
DX: B34.9 Viral infection, unspecified (principal)

== ENCOUNTER → 2025-09-24 | Outpatient (REF) | payer OTHER ==
[2025-09-24 13:42] LABS: APPEARANCE, URINE HAZY (CLEAR); BACTERIA, URINE AUTO NEGATIVE (NEGATIVE); BILIRUBIN, URINE AUTO NEGATIVE (NEGATIVE); BLOOD, URINE BLOOD NEGATIVE (NEGATIVE); GLUCOSE, URINE (UA) AUTO NEGATIVE (NEGATIVE); KETONE, URINE AUTO TRACE mg/dL (NEGATIVE); LEUKOCYTE ESTERASE, URINE AUTO NEGATIVE (NEGATIVE); MUCUS, URINE SMALL (NEGATIVE); NITRITE, URINE AUTO NEGATIVE (NEGATIVE); PROTEIN, URINE AUTO NEGATIVE (NEGATIVE); RBC, URINE AUTO 1 /HPF (0-3); SPECIFIC GRAVITY URINE AUTO 1.017 (1.002-1.035); SQUAMOUS EPITHELIAL CELL UR AU 12 /HPF (0-6); UROBILINOGEN, URINE AUTO 0.2 mg/dL (0.0-2.0); WBC, URINE AUTO 0 /HPF (0-3)
[2025-09-24 14:30] LABS: CREATININE, URINE 120.6 MG/DL; MALB URINE SIEMENS 9.0 MG/L; MAU/CREAT RATIO 7.4 MCG/MG (0.0-30.0)
== END ==
LOC: M SFHCPLAZ 10:03
PROVIDERS: ATTEND Family Medicine
DX: R39.9 Unspecified symptoms and signs involving the genitourinary system (principal); E11.9 Type 2 diabetes mellitus without complications

== ENCOUNTER → 2025-09-26 | Outpatient (CLI) | payer OTHER ==
[2025-09-26 13:56] LABS: PLATELET COUNT, AUTOMATED 321 10^3/uL (150-450)
[2025-09-26 13:57] LABS: ALT/SGPT 59 U/L (7.0-40); AST/SGOT 48 U/L (<34); CALCIUM LEVEL 9.6 MG/DL (8.5-10.1); CARBON DIOXIDE LEVEL 29 MMOL/L (20-31); CHLORIDE LEVEL 100 MMOL/L (98-107); CHOLESTEROL LEVEL 187 MG/DL (<200); CHOLESTEROL RISK RATIO 5.48 (<5); CREATININE FOR GFR 0.55 MG/DL (0.55-1.30); GLOMERULAR FILTRATION RATE > 90.0 (>58); LDL CHOLESTEROL 81.1 MG/DL (<100); NON-HDL-C 152.9 MG/DL; POTASSIUM SERUM 4.3 MMOL/L (3.5-5.1); SODIUM LEVEL 137 MMOL/L (136-145); TRIGLYCERIDES LEVEL 359 MG/DL (<150)
[2025-09-26 13:59] LABS: FREE T4 1.21 NG/DL (0.89-1.76)
[2025-09-26 14:47] LABS: ESTIMATED AVERAGE GLUCOSE 128.0 MG/DL (60-110)
== END ==
LOC: M PLALAB 09:31
PROVIDERS: ATTEND Family Medicine
DX: E11.9 Type 2 diabetes mellitus without complications (principal); G47.19 Other hypersomnia

== ENCOUNTER → 2025-11-06 | Outpatient (REF) | payer OTHER | LOC: M SFHCPLAZ 12:09 | PROVIDERS: ATTEND Family Medicine | DX: R19.7 Diarrhea, unspecified (principal) ==

== ENCOUNTER → 2025-11-07 | Outpatient (REF) | payer OTHER | LOC: M SFHCPLAZ 11:05 | PROVIDERS: ATTEND Family Medicine | DX: R19.7 Diarrhea, unspecified (principal) ==